=== PATIENT | female | born 1950 | race Two or more races ===

== ENCOUNTER 2024-03-21 09:01 | Inpatient (IN) | payer OTHER, MEDICAID ==
[~2024-03-21] VITALS: Ht 152.4 cm; Wt 81.6 kg
[2024-03-21 09:44] LABS: Basophils # (auto) 0 10 ^3/uL (0-0.2); Basophils % (auto) 0.5 % (0.0-2.0); Eosinophils # (auto) 0.1 10 ^3/uL (0-0.8); Eosinophils % (auto) 1.6 % (0.0-7.0); Hematocrit 40.1 % (36.0-46.0); Hemoglobin 13.1 g/dL (12.2-16.2); Lymphocytes # (auto) 2.2 10 ^3/uL (0.4-5.4); Lymphocytes % (auto) 31.6 % (10.0-50.0); Mean Corpuscular Hemoglobin 29.2 pg (28.0-32.0); Mean Corpuscular Hgb Conc. 32.7 g/dL (32.0-36.0); Mean Corpuscular Volume 89.3 fL (80.0-100.0); Monocytes # (auto) 0.5 10 ^3/uL (0-1.3); Monocytes % (auto) 6.8 % (0.0-12.0); Neutrophils # (auto) 4.2 10 ^3/uL (1.6-8.6); Neutrophils % (auto) 59.5 % (37.0-80.0); Nucleated Red Blood Cells % 0.1 %; Red Blood Cells 4.49 10^6/uL (4.0-5.20); Red Cell Distribution Width 14.3 % (11.8-14.3)
[2024-03-21 10:06] LABS: Alanine Aminotransferase 16 U/L (7-40); Albumin 4.3 g/dL (3.2-4.8); Alkaline Phosphatase 103 U/L (46-116); Anion Gap 7 (5-15); Aspartate Aminotransferase 13 U/L (13-40); BUN/Creatinine Ratio 12.7 (10.0-20.0); Blood Urea Nitrogen 10 mg/dL (9-23); Calcium 9.3 mg/dL (8.5-10.1); Carbon Dioxide 23 mmol/L (20-30); Chloride 114 mmol/L (98-107); Glucose 128 mg/dL (74-106); Potassium 3.7 mmol/L (3.5-5.1); Sodium 144 mmol/L (136-145)
[2024-03-21 10:07] LABS: Bilirubin, Total 0.7 mg/dL (0.2-1.0); Total Protein 6.7 g/dL (5.7-8.2)
[2024-03-21 10:46] VITALS: RESP 16; O2SAT 97
[2024-03-21] MEDS ORDERED: MORPHINE SULFATE INJ 2 MG/ml SYRG IV PRN (15:30)
[2024-03-21] MEDS ORDERED: NITROGLYCERIN 0.4 MG SL TAB SL PRN (15:30)
[2024-03-21 15:58] LABS: Triglycerides 142 mg/dL (< 150)
[2024-03-21 15:59] LABS: LDL Cholesterol 105 mg/dL (< 100)
[2024-03-21 16:00] LABS: Cholesterol 175 mg/dL (< 200); HDL Cholesterol 48 mg/dL (40-59)
[2024-03-21] MEDS: SODIUM CHLORIDE 0.9% 1,000 ML IV SCH (16:49)
[2024-03-21 19:30] VITALS: PULSE 63
[2024-03-21] MEDS ORDERED: LORazepam 2MG/ML-1ML VIAL IV PRN (20:15)
[2024-03-21 21:29] VITALS: BP 132/75; PULSE 61; RESP 18; TEMP 98.4; O2SAT 97
[2024-03-21] MEDS: ATORVASTATIN 20 MG TAB PO SCH (21:56)
[2024-03-21 22:10] VITALS: BP 132/75; PULSE 61; RESP 18; TEMP 98.4; O2SAT 97
[2024-03-22] VITALS (9 sets, daily range): BP systolic 117–180; BP diastolic 71–84; PULSE 52–100; RESP 18; TEMP 98–99; O2SAT 95–98
[2024-03-22] MEDS ORDERED: MET50T PO (00:08)
[2024-03-22] MEDS ORDERED: GABA-339 PO (00:08)
[2024-03-22] MEDS ORDERED: HYDR25TA88 PO (00:08)
[2024-03-22] MEDS ORDERED: DIPH-753 PO (00:08)
[2024-03-22] MEDS ORDERED: IBUP-1456 PO (00:08)
[2024-03-22 05:02] LABS: Basophils # (auto) 0 10 ^3/uL (0-0.2); Basophils % (auto) 0.4 % (0.0-2.0); Eosinophils # (auto) 0.1 10 ^3/uL (0-0.8); Hematocrit 34.9 % (36.0-46.0); Hemoglobin 11.9 g/dL (12.2-16.2); Lymphocytes # (auto) 2.5 10 ^3/uL (0.4-5.4); Lymphocytes % (auto) 37.9 % (10.0-50.0); Mean Corpuscular Volume 88.4 fL (80.0-100.0); Monocytes # (auto) 0.5 10 ^3/uL (0-1.3); Monocytes % (auto) 7.1 % (0.0-12.0); Neutrophils # (auto) 3.5 10 ^3/uL (1.6-8.6); Neutrophils % (auto) 52.6 % (37.0-80.0); Nucleated Red Blood Cells % 0.1 %; Red Blood Cells 3.95 10^6/uL (4.0-5.20); Red Cell Distribution Width 14.1 % (11.8-14.3); White Blood Cell 6.6 10^3/uL (4.4-10.8)
[2024-03-22 05:32] LABS: Alanine Aminotransferase 14 U/L (7-40); Alkaline Phosphatase 89 U/L (46-116); Anion Gap 7 (5-15); BUN/Creatinine Ratio 29.5 (10.0-20.0); Blood Urea Nitrogen 18 mg/dL (9-23); Calcium 8.6 mg/dL (8.7-10.4); Carbon Dioxide 22 mmol/L (20-30); Chloride 114 mmol/L (98-107); Glucose 96 mg/dL (74-106); Potassium 3.6 mmol/L (3.5-5.1); Sodium 143 mmol/L (136-145)
[2024-03-22 05:33] LABS: Albumin 3.7 g/dL (3.2-4.8); Aspartate Aminotransferase 10 U/L (13-40); Bilirubin, Total 0.6 mg/dL (0.2-1.0); Total Protein 5.8 g/dL (5.7-8.2)
[2024-03-22] MEDS: METOPROLOL TARTRATE 50 MG TAB PO SCH (10:30)
[2024-03-22] MEDS: ASPirin 81 mg TAB PO SCH (10:51)
[2024-03-22] MEDS: hydrALAZINE HCL 25 MG TAB PO SCH (10:52)
[2024-03-22] MEDS: ENOXAPARIN SOD 40 MG/0.4 ML SYRINGE SC SCH (10:54)
[2024-03-22] MEDS: ACETAMINOPHEN 325 MG TAB PO PRN (13:28)
[2024-03-22] MEDS: cloNIDine HCL 0.1 MG TAB PO ONE (13:30)
[2024-03-22] MEDS: ZOLPIDEM TARTRATE 5 MG TAB PO PRN (21:27)
[2024-03-23] VITALS (9 sets, daily range): BP systolic 117–151; BP diastolic 58–81; PULSE 54–83; RESP 17–20; TEMP 98–98.5; O2SAT 95–98
[2024-03-24 01:00] VITALS: BP 145/78; PULSE 62; RESP 16; TEMP 98.2; O2SAT 97
[2024-03-24 05:00] VITALS: BP 153/79; PULSE 60; RESP 20; TEMP 98; O2SAT 95
[2024-03-24 08:00] VITALS: PULSE 62
[2024-03-24 08:25] VITALS: BP 142/86; PULSE 60; RESP 18; TEMP 98.6; O2SAT 96
[2024-03-24] MEDS ORDERED: ATOR20TA PO (12:00)
[2024-03-24] MEDS ORDERED: ZOLP10TA PO (12:00)
[2024-03-24] MEDS ORDERED: ALPR1TAB2 PO (12:00)
[2024-03-24] MEDS ORDERED: ASPI-628 PO (12:00)
[2024-03-24] MEDS ORDERED: METO-158 PO (12:00)
[2024-03-24 13:00] VITALS: BP 138/70; PULSE 60; RESP 18; TEMP 97.7; O2SAT 95
[2024-03-24 17:00] VITALS: BP 134/92; PULSE 61; RESP 18; TEMP 98; O2SAT 96
== END 2024-03-24 21:12 | disposition home health service (06) | DRG 65 ==
LOC: ER 09:01 → TELE-WESTW 15:26 → TELE 15:26 → TELE-WESTW 21:30 → UNDODISIN 03-24 19:00
PROVIDERS: ADMIT Nurse Practitioner Family; ATTEND Family Medicine
DX: I63.9 Cerebral infarction, unspecified (principal); G81.94 Hemiplegia, unspecified affecting left nondominant side; I16.1 Hypertensive emergency; R29.810 Facial weakness; E66.01 Morbid (severe) obesity due to excess calories; E78.00 Pure hypercholesterolemia, unspecified; R73.03 Prediabetes; Z79.82 Long term (current) use of aspirin; Z88.6 Allergy status to analgesic agent; Z68.35 Body mass index [BMI] 35.0-35.9, adult; Z83.3 Family history of diabetes mellitus; Z79.899 Other long term (current) drug therapy
CPT/HCPCS: 36415; 70450; 70551; 80053; 80061; 84443; 85025; 93005; 93306; 93886; 97110; 97116; 97163; 97530; G0378

== ENCOUNTER 2024-04-29 17:30 | Emergency (ER) | payer OTHER, MEDICAID ==
[~2024-04-29] VITALS: Ht 154.9 cm; Wt 80.0 kg
[~2024-04-29 17:30] MED LIST: ALPR1TAB2 PO; ASPI-628 PO; ATOR20TA PO; DIPH-753 PO; GABA-339 PO; HYDR25TA88 PO; IBUP-1456 PO; MET50T PO; METO-158 PO; ZOLP10TA PO
[2024-04-29 19:27] LABS: Basophils # (auto) 0.1 10 ^3/uL (0-0.2); Basophils % (auto) 0.5 % (0.0-2.0); Eosinophils # (auto) 0 10 ^3/uL (0-0.8); Eosinophils % (auto) 0.4 % (0.0-7.0); Hemoglobin 12.8 g/dL (12.2-16.2); Lymphocytes # (auto) 2.5 10 ^3/uL (0.4-5.4); Lymphocytes % (auto) 25.8 % (10.0-50.0); Mean Corpuscular Hemoglobin 29.2 pg (28.0-32.0); Mean Corpuscular Hgb Conc. 32.7 g/dL (32.0-36.0); Mean Corpuscular Volume 89.4 fL (80.0-100.0); Monocytes # (auto) 0.8 10 ^3/uL (0-1.3); Monocytes % (auto) 8.6 % (0.0-12.0); Neutrophils # (auto) 6.3 10 ^3/uL (1.6-8.6); Neutrophils % (auto) 64.7 % (37.0-80.0); Platelet Count (auto) 176 10^3/uL (140-450); Red Blood Cells 4.36 10^6/uL (4.0-5.20); Red Cell Distribution Width 14.1 % (11.8-14.3); White Blood Cell 9.7 10^3/uL (4.4-10.8)
[2024-04-29 19:47] LABS: Alanine Aminotransferase 14 U/L (7-40); Alkaline Phosphatase 87 U/L (46-116); Anion Gap 6 (5-15); Aspartate Aminotransferase 14 U/L (13-40); BUN/Creatinine Ratio 15.3 (10.0-20.0); Bilirubin, Total 1.3 mg/dL (0.2-1.0); Blood Urea Nitrogen 9 mg/dL (9-23); Calcium 9.2 mg/dL (8.7-10.4); Carbon Dioxide 22 mmol/L (20-30); Chloride 106 mmol/L (98-107); Glucose 108 mg/dL (74-106); Partial Thromboplastin Time 25.4 SEC (24.5-34.5); Prothrombin Time 10.6 sec (9.3-11.8); Sodium 134 mmol/L (136-145); Total Protein 6.9 g/dL (5.7-8.2)
[2024-04-29 22:00] VITALS: PULSE 60; RESP 20; O2SAT 97
[2024-04-29] MEDS: PANTOPRAZOLE 40 MG TAB PO ONE (22:24)
[2024-04-29] MEDS: ACETAMINOPHEN 500 MG TAB PO ONE (22:24)
[2024-04-29 22:39] VITALS: BP 150/68; PULSE 60; RESP 16; TEMP 98; O2SAT 97
== END 2024-04-29 22:39 | disposition home or self-care (01) ==
LOC: ER 17:30
DX: R53.1 Weakness (principal); R42 Dizziness and giddiness; I10 Essential (primary) hypertension; T46.6X5A Adverse effect of antihyperlipidemic and antiarteriosclerotic drugs, initial encounter; Z86.73 Personal history of transient ischemic attack (TIA), and cerebral infarction without residual deficits; Y92.89 Other specified places as the place of occurrence of the external cause
CPT/HCPCS: 36415; 70450; 71045; 80053; 82962; 83880; 84484; 85025; 85610; 85730; 93005

== ENCOUNTER 2024-05-23 00:06 | Inpatient (IN) | payer OTHER, MEDICAID ==
[~2024-05-23] VITALS: Ht 152.4 cm; Wt 80.7 kg
[2024-05-23 01:00] VITALS: PULSE 54; RESP 16; O2SAT 96
[2024-05-23 01:08] LABS: Basophils # (auto) 0.1 10 ^3/uL (0-0.2); Basophils % (auto) 0.6 % (0.0-2.0); Eosinophils # (auto) 0.1 10 ^3/uL (0-0.8); Eosinophils % (auto) 0.7 % (0.0-7.0); Hematocrit 37.5 % (36.0-46.0); Hemoglobin 12.6 g/dL (12.2-16.2); Lymphocytes # (auto) 2.2 10 ^3/uL (0.4-5.4); Lymphocytes % (auto) 23.2 % (10.0-50.0); Mean Corpuscular Hemoglobin 30.3 pg (28.0-32.0); Mean Corpuscular Hgb Conc. 33.8 g/dL (32.0-36.0); Mean Corpuscular Volume 89.7 fL (80.0-100.0); Monocytes # (auto) 0.7 10 ^3/uL (0-1.3); Monocytes % (auto) 7.8 % (0.0-12.0); Neutrophils # (auto) 6.5 10 ^3/uL (1.6-8.6); Neutrophils % (auto) 67.7 % (37.0-80.0); Platelet Count (auto) 189 10^3/uL (140-450); Red Blood Cells 4.18 10^6/uL (4.0-5.20); Red Cell Distribution Width 13.8 % (11.8-14.3); White Blood Cell 9.6 10^3/uL (4.4-10.8)
[2024-05-23 01:52] LABS: Urine Bacteria None Seen /hpf (None Seen)
[2024-05-23 02:24] LABS: Urine Blood Negative /uL (Negative); Urine Clarity Clear (Clear); Urine Color Colorless (Yellow); Urine Protein, UAD Negative (Negative); Urine Specific Gravity 1.003 (1.001-1.035); Urine Urobilinogen Normal (Negative); Urine WBC <1 /hpf (0 - 5)
[2024-05-23 02:59] LABS: Alanine Aminotransferase 15 U/L (7-40); Albumin 4.1 g/dL (3.2-4.8); Alkaline Phosphatase 97 U/L (46-116); Anion Gap 8 (5-15); Aspartate Aminotransferase 12 U/L (13-40); BUN/Creatinine Ratio 13.5 (10.0-20.0); Bilirubin, Total 0.7 mg/dL (0.2-1.0); Blood Urea Nitrogen 7 mg/dL (9-23); Calcium 8.9 mg/dL (8.7-10.4); Carbon Dioxide 20 mmol/L (20-30); Chloride 101 mmol/L (98-107); Glucose 106 mg/dL (74-106); Potassium 3.6 mmol/L (3.5-5.1); Sodium 129 mmol/L (136-145); Total Protein 6.2 g/dL (5.7-8.2)
[2024-05-23] MEDS: ONDANSETRON HCL 4 MG/2 ML VIAL IV ONE (03:16)
[2024-05-23] MEDS: MORPHINE SULFATE 4 MG/ML SYR/VIAL IV ONE (03:16)
[2024-05-23 07:45] VITALS: PULSE 56; RESP 12; O2SAT 96
[2024-05-23] MEDS ORDERED: DOCUSATE SOD 100 MG CAP PO PRN (10:30)
[2024-05-23] MEDS ORDERED: NITROGLYCERIN 0.4 MG SL TAB SL PRN (10:30)
[2024-05-23] MEDS ORDERED: ONDANSETRON HCL 4 MG/2 ML VIAL IV PRN (10:30)
[2024-05-23] MEDS: SODIUM CHLORIDE 0.9% 1,000 ML IV SCH (10:54)
[2024-05-23] MEDS ORDERED: GABAPENTIN 300 MG CAP PO ONE (11:30)
[2024-05-23] MEDS: GABAPENTIN 300 MG CAP PO SCH (12:19)
[2024-05-23] MEDS: LORazepam 2MG/ML-1ML VIAL IV SCH (12:19)
[2024-05-23 14:30] VITALS: BP 96/40; PULSE 68; RESP 18; TEMP 98.1; O2SAT 99
[2024-05-23 14:33] VITALS: BP 96/40; PULSE 68; RESP 18; TEMP 98.1; O2SAT 98
[2024-05-23 17:00] VITALS: BP 153/64; PULSE 68; RESP 18; TEMP 98.1; O2SAT 95
[2024-05-23 21:00] VITALS: BP 130/64; PULSE 58; RESP 18; TEMP 97.9; O2SAT 96
[2024-05-23] MEDS: METOPROLOL TARTRATE 50 MG TAB PO SCH (21:37)
[2024-05-23] MEDS: MORPHINE SULFATE INJ 2 MG/ml SYRG IV PRN (21:38)
[2024-05-24] VITALS (7 sets, daily range): BP systolic 104–138; BP diastolic 37–69; PULSE 53–87; RESP 14–18; TEMP 97.6–99.8; O2SAT 94–99
[2024-05-24 06:18] LABS: Basophils # (auto) 0 10 ^3/uL (0-0.2); Basophils % (auto) 0.5 % (0.0-2.0); Eosinophils # (auto) 0 10 ^3/uL (0-0.8); Eosinophils % (auto) 0.4 % (0.0-7.0); Hematocrit 36.5 % (36.0-46.0); Hemoglobin 12.4 g/dL (12.2-16.2); Lymphocytes # (auto) 1.6 10 ^3/uL (0.4-5.4); Lymphocytes % (auto) 25.2 % (10.0-50.0); Mean Corpuscular Hemoglobin 29.9 pg (28.0-32.0); Mean Corpuscular Hgb Conc. 33.9 g/dL (32.0-36.0); Mean Corpuscular Volume 88.2 fL (80.0-100.0); Monocytes # (auto) 0.6 10 ^3/uL (0-1.3); Monocytes % (auto) 9.9 % (0.0-12.0); Neutrophils # (auto) 4.1 10 ^3/uL (1.6-8.6); Nucleated Red Blood Cells % 0.1 %; Platelet Count (auto) 191 10^3/uL (140-450); Red Blood Cells 4.14 10^6/uL (4.0-5.20); Red Cell Distribution Width 13.8 % (11.8-14.3); White Blood Cell 6.4 10^3/uL (4.4-10.8)
[2024-05-24 06:36] LABS: Alanine Aminotransferase 13 U/L (7-40); Albumin 3.9 g/dL (3.2-4.8); Alkaline Phosphatase 83 U/L (46-116); Anion Gap 6 (5-15); Aspartate Aminotransferase 11 U/L (13-40); Calcium 9.3 mg/dL (8.7-10.4); Carbon Dioxide 22 mmol/L (20-30); Chloride 110 mmol/L (98-107); Glucose 94 mg/dL (74-106); Potassium 3.8 mmol/L (3.5-5.1); Sodium 138 mmol/L (136-145)
[2024-05-24 06:37] LABS: Bilirubin, Total 0.8 mg/dL (0.2-1.0); Total Protein 6.1 g/dL (5.7-8.2)
[2024-05-24 06:42] LABS: BUN/Creatinine Ratio 9.8 (10.0-20.0); Blood Urea Nitrogen < 5 mg/dL (9-23)
[2024-05-24] MEDS: ENOXAPARIN SOD 40 MG/0.4 ML SYRINGE SC SCH (10:22)
[2024-05-24] MEDS: ACETAMINOPHEN 325 MG TAB PO PRN (10:23)
[2024-05-24] MEDS: ASPirin-EC 81 mg tab PO SCH (10:24)
[2024-05-24] MEDS: ATORVASTATIN 20 MG TAB PO SCH (10:24)
[2024-05-24] MEDS ORDERED: POLYSOL2 EACHEYE (16:37)
[2024-05-24] MEDS: HYDROcodone-ACET 5/325MG TAB PO PRN (21:48)
[2024-05-24] MEDS: LACTATED RINGER'S 1,000 ML IV SCH (22:34)
[2024-05-25] MEDS: LORazepam 2MG/ML-1ML VIAL IV PRN (02:40)
[2024-05-25 05:00] VITALS: BP 137/82; PULSE 59; RESP 17; TEMP 97.5; O2SAT 96
[2024-05-25] MEDS: ARTIFICIAL TEARS 15ml EACHEYE PRN (05:15)
[2024-05-25 07:38] LABS: Alanine Aminotransferase 14 U/L (7-40); Albumin 3.7 g/dL (3.2-4.8); Alkaline Phosphatase 78 U/L (46-116); Anion Gap 10 (5-15); Aspartate Aminotransferase 10 U/L (13-40); BUN/Creatinine Ratio 19.2 (10.0-20.0); Bilirubin, Total 0.5 mg/dL (0.2-1.0); Blood Urea Nitrogen 10 mg/dL (9-23); Carbon Dioxide 19 mmol/L (20-30); Chloride 111 mmol/L (98-107); Glucose 89 mg/dL (74-106); Sodium 140 mmol/L (136-145); Total Protein 5.6 g/dL (5.7-8.2)
[2024-05-25 08:35] VITALS: BP 135/61; PULSE 59; RESP 17; TEMP 98.1; O2SAT 97
[2024-05-25] MEDS ORDERED: ACET-1882 PO (10:44)
[2024-05-25] MEDS ORDERED: ATOR20TA50 PO (10:44)
[2024-05-25 12:52] VITALS: BP 142/64; PULSE 59; RESP 20; TEMP 98.9; O2SAT 93
[2024-05-25] MEDS ORDERED: [UNRECOGNIZED DRUG - CODE] PO (14:53)
[2024-05-25 16:30] VITALS: BP 145/80; PULSE 58; RESP 20; TEMP 98.2; O2SAT 94
[2024-05-25 16:57] VITALS: BP 116/68; PULSE 56; TEMP 37.2
== END 2024-05-25 19:07 | disposition home or self-care (01) | DRG 641 ==
LOC: EDBD 00:06 → ER 00:06 → EDUNIT# 00:06 → OVERFLOW 10:23 → WEST WING 14:14
PROVIDERS: ADMIT Nurse Practitioner Family; ATTEND Nurse Practitioner Family
DX: E87.1 Hypo-osmolality and hyponatremia (principal); I16.1 Hypertensive emergency; I69.354 Hemiplegia and hemiparesis following cerebral infarction affecting left non-dominant side; I10 Essential (primary) hypertension; E78.00 Pure hypercholesterolemia, unspecified; Z79.899 Other long term (current) drug therapy; Z88.8 Allergy status to other drugs, medicaments and biological substances; E78.5 Hyperlipidemia, unspecified
CPT/HCPCS: 36415; 70450; 70551; 71045; 80053; 81001; 84484; 85025; 93005; 96374; 96375; 96376; 97163; G0378; J2405

== ENCOUNTER 2024-05-31 15:52 | Inpatient (IN) | payer OTHER, MEDICAID ==
[~2024-05-31] VITALS: Ht 152.4 cm; Wt 81.1 kg
[~2024-05-31 15:52] MED LIST changes: +ACET-1882 PO; -ALPR1TAB2 PO; -ATOR20TA PO; +ATOR20TA50 PO; -DIPH-753 PO; -IBUP-1456 PO; -METO-158 PO; +POLYSOL2 EACHEYE; +[UNRECOGNIZED DRUG - CODE] PO
[2024-05-31 17:02] LABS: Basophils # (auto) 0 10 ^3/uL (0-0.2); Basophils % (auto) 0.2 % (0.0-2.0); Eosinophils # (auto) 0.1 10 ^3/uL (0-0.8); Eosinophils % (auto) 0.5 % (0.0-7.0); Hemoglobin 13.1 g/dL (12.2-16.2); Lymphocytes # (auto) 1.9 10 ^3/uL (0.4-5.4); Lymphocytes % (auto) 16.3 % (10.0-50.0); Mean Corpuscular Hemoglobin 30.5 pg (28.0-32.0); Mean Corpuscular Hgb Conc. 32.7 g/dL (32.0-36.0); Mean Corpuscular Volume 93.2 fL (80.0-100.0); Monocytes # (auto) 0.9 10 ^3/uL (0-1.3); Monocytes % (auto) 7.9 % (0.0-12.0); Neutrophils # (auto) 8.7 10 ^3/uL (1.6-8.6); Neutrophils % (auto) 75.1 % (37.0-80.0); Nucleated Red Blood Cells % 0.1 %; Platelet Count (auto) 223 10^3/uL (140-450); Red Blood Cells 4.29 10^6/uL (4.0-5.20); Red Cell Distribution Width 14.6 % (11.8-14.3); White Blood Cell 11.5 10^3/uL (4.4-10.8)
[2024-05-31 17:07] LABS: Chloride 100 mmol/L (98-107)
[2024-05-31 17:08] LABS: Anion Gap 6 (5-15); Carbon Dioxide 24 mmol/L (20-30)
[2024-05-31 17:09] LABS: Calcium 9.4 mg/dL (8.7-10.4)
[2024-05-31 17:12] LABS: Sodium 130 mmol/L (136-145)
[2024-05-31 17:13] LABS: Glucose 112 mg/dL (74-106)
[2024-05-31 17:14] LABS: BUN/Creatinine Ratio 27.4 (10.0-20.0); Blood Urea Nitrogen 17 mg/dL (9-23)
[2024-05-31] MEDS: HYDROcodone-ACET 5/325MG TAB PO ONE (20:30)
[2024-06-01] MEDS: HYDROcodone-ACET 5/325MG TAB PO ONE (05:17)
[2024-06-01] MEDS ORDERED: NITROGLYCERIN 0.4 MG SL TAB SL PRN (06:15)
[2024-06-01] MEDS ORDERED: DOCUSATE SOD 100 MG CAP PO PRN (06:15)
[2024-06-01] MEDS ORDERED: MORPHINE SULFATE INJ 2 MG/ml SYRG IV PRN (06:15)
[2024-06-01] MEDS ORDERED: ONDANSETRON HCL 4 MG/2 ML VIAL IV PRN (06:15)
[2024-06-01 07:02] LABS: Basophils # (auto) 0 10 ^3/uL (0-0.2); Basophils % (auto) 0.2 % (0.0-2.0); Eosinophils # (auto) 0 10 ^3/uL (0-0.8); Eosinophils % (auto) 0.1 % (0.0-7.0); Hematocrit 36.7 % (36.0-46.0); Hemoglobin 12.9 g/dL (12.2-16.2); Lymphocytes # (auto) 1.8 10 ^3/uL (0.4-5.4); Lymphocytes % (auto) 15.3 % (10.0-50.0); Mean Corpuscular Hemoglobin 30.9 pg (28.0-32.0); Mean Corpuscular Hgb Conc. 35.1 g/dL (32.0-36.0); Monocytes # (auto) 0.9 10 ^3/uL (0-1.3); Monocytes % (auto) 7.7 % (0.0-12.0); Neutrophils # (auto) 8.8 10 ^3/uL (1.6-8.6); Neutrophils % (auto) 76.7 % (37.0-80.0); Platelet Count (auto) 216 10^3/uL (140-450); Red Blood Cells 4.17 10^6/uL (4.0-5.20); White Blood Cell 11.5 10^3/uL (4.4-10.8)
[2024-06-01 07:22] LABS: Alanine Aminotransferase 21 U/L (7-40); Albumin 4.6 g/dL (3.2-4.8); Alkaline Phosphatase 88 U/L (46-116); Anion Gap 8 (5-15); Aspartate Aminotransferase 15 U/L (13-40); BUN/Creatinine Ratio 17.5 (10.0-20.0); Bilirubin, Total 0.9 mg/dL (0.2-1.0); Blood Urea Nitrogen 10 mg/dL (9-23); Calcium 9.5 mg/dL (8.7-10.4); Carbon Dioxide 23 mmol/L (20-30); Chloride 99 mmol/L (98-107); Glucose 121 mg/dL (74-106); Potassium 3.6 mmol/L (3.5-5.1); Sodium 130 mmol/L (136-145)
[2024-06-01 08:00] VITALS: PULSE 85; RESP 19; O2SAT 96
[2024-06-01] MEDS ORDERED: ATORVASTATIN 20 MG TAB PO SCH (10:00)
[2024-06-01] MEDS ORDERED: ASPirin 81 mg TAB PO SCH (10:00)
[2024-06-01] MEDS: SODIUM CHLORIDE 0.9% 1,000 ML IV SCH (10:02)
[2024-06-01] MEDS: HYDROcodone-ACET 5/325MG TAB PO PRN (10:03)
[2024-06-01] MEDS: cefTRIAXone 1GM/50ML D5W 50 ML IV ONE (10:03)
[2024-06-01] MEDS: ASPirin-EC 81 mg tab PO SCH (10:03)
[2024-06-01] MEDS: hydrALAZINE HCL 25 MG TAB PO SCH (10:04)
[2024-06-01] MEDS: METOPROLOL TARTRATE 50 MG TAB PO SCH (10:04)
[2024-06-01] MEDS: hydrALAZINE HCL 20 MG/ML VL IV PRN (11:05)
[2024-06-01] MEDS ORDERED: SODIUM CHLOR 0.9% PF (SALINE LOCK) 10ML VIAL/SYR IV SCH (14:00)
[2024-06-01] MEDS: ALPRAZolam 0.25 MG TAB PO ONE (16:24)
[2024-06-01 17:34] VITALS: BP 137/52; PULSE 69; RESP 18; RESP 20; TEMP 98.1; O2SAT 97
[2024-06-01 17:48] LABS: Urine Bacteria None Seen /hpf (None Seen)
[2024-06-01 18:00] LABS: Urine Blood Negative /uL (Negative); Urine Clarity Clear (Clear); Urine Color Colorless (Yellow); Urine Protein, UAD Negative (Negative); Urine Specific Gravity 1.006 (1.001-1.035); Urine Urobilinogen Normal (Negative); Urine WBC 6 /hpf (0 - 5)
[2024-06-01 18:54] VITALS: BP 137/52; PULSE 67; RESP 18; TEMP 98.1; O2SAT 97
[2024-06-01 20:00] VITALS: PULSE 62; RESP 20; O2SAT 97
[2024-06-01] MEDS: ACETAMINOPHEN 325 MG TAB PO PRN (20:17)
[2024-06-01 21:00] VITALS: BP 125/54; PULSE 62; RESP 20; TEMP 98.5; O2SAT 9
[2024-06-01] MEDS: ATORVASTATIN 20 MG TAB PO SCH (21:23)
[2024-06-02] VITALS (8 sets, daily range): BP systolic 114–146; BP diastolic 59–72; PULSE 53–68; RESP 17–19; TEMP 97.6–98.4; O2SAT 94–98
[2024-06-02] MEDS: MELATONIN 5 MG TAB PO ONE (00:53)
[2024-06-02 06:34] LABS: Basophils # (auto) 0 10 ^3/uL (0-0.2); Basophils % (auto) 0.4 % (0.0-2.0); Eosinophils # (auto) 0 10 ^3/uL (0-0.8); Eosinophils % (auto) 0.2 % (0.0-7.0); Hematocrit 34.4 % (36.0-46.0); Lymphocytes # (auto) 1.4 10 ^3/uL (0.4-5.4); Lymphocytes % (auto) 24.8 % (10.0-50.0); Mean Corpuscular Hemoglobin 31.1 pg (28.0-32.0); Monocytes # (auto) 0.5 10 ^3/uL (0-1.3); Neutrophils # (auto) 3.9 10 ^3/uL (1.6-8.6); Neutrophils % (auto) 66.6 % (37.0-80.0); Platelet Count (auto) 182 10^3/uL (140-450); Red Blood Cells 3.86 10^6/uL (4.0-5.20); White Blood Cell 5.9 10^3/uL (4.4-10.8)
[2024-06-02 06:46] LABS: Alanine Aminotransferase 17 U/L (7-40); Albumin 3.8 g/dL (3.2-4.8); Alkaline Phosphatase 71 U/L (46-116); Anion Gap 9 (5-15); Aspartate Aminotransferase 12 U/L (13-40); BUN/Creatinine Ratio 11.8 (10.0-20.0); Bilirubin, Total 0.8 mg/dL (0.2-1.0); Blood Urea Nitrogen 6 mg/dL (9-23); Calcium 9.2 mg/dL (8.7-10.4); Carbon Dioxide 21 mmol/L (20-30); Chloride 108 mmol/L (98-107); Glucose 107 mg/dL (74-106); Magnesium 2.2 mg/dL (1.6-2.6); Potassium 3.8 mmol/L (3.5-5.1); Sodium 138 mmol/L (136-145); Total Protein 5.8 g/dL (5.7-8.2)
[2024-06-02] MEDS: cefTRIAXone 1GM/50ML D5W 50 ML IV SCH (09:39)
[2024-06-02] MEDS ORDERED: LORazepam 2MG/ML-1ML VIAL IV PRN (10:45)
[2024-06-02 12:32] LABS: Hepatitis B Surface Antigen Negative (Negative)
[2024-06-02 12:53] LABS: Hepatitis C Antibody Negative (Negative)
[2024-06-02 13:14] LABS: Free T4 (Free Thyroxine) 1.76 ng/dL (0.89-1.76)
[2024-06-02] MEDS: POTASSIUM CHL 20 Meq TABLET PO ONE (13:45)
[2024-06-02] MEDS: TEMAZEPAM 15 MG CAP PO ONE (23:15)
[2024-06-03] VITALS (7 sets, daily range): BP systolic 120–143; BP diastolic 55–79; PULSE 56–94; RESP 16–18; TEMP 97.2–98.2; O2SAT 93–97
[2024-06-03] MEDS: PANTOPRAZOLE 40 MG TAB PO SCH (05:41)
[2024-06-03 07:48] LABS: Basophils # (auto) 0 10 ^3/uL (0-0.2); Basophils % (auto) 0.3 % (0.0-2.0); Eosinophils # (auto) 0 10 ^3/uL (0-0.8); Eosinophils % (auto) 0.7 % (0.0-7.0); Hematocrit 35.6 % (36.0-46.0); Hemoglobin 12.2 g/dL (12.2-16.2); Lymphocytes % (auto) 27.5 % (10.0-50.0); Mean Corpuscular Hemoglobin 30.7 pg (28.0-32.0); Mean Corpuscular Hgb Conc. 34.1 g/dL (32.0-36.0); Mean Corpuscular Volume 90.1 fL (80.0-100.0); Monocytes # (auto) 0.7 10 ^3/uL (0-1.3); Monocytes % (auto) 9.2 % (0.0-12.0); Neutrophils # (auto) 4.5 10 ^3/uL (1.6-8.6); Neutrophils % (auto) 62.3 % (37.0-80.0); Nucleated Red Blood Cells % 0.1 %; Platelet Count (auto) 199 10^3/uL (140-450); Red Blood Cells 3.96 10^6/uL (4.0-5.20); Red Cell Distribution Width 14.5 % (11.8-14.3); White Blood Cell 7.2 10^3/uL (4.4-10.8)
[2024-06-03 08:28] LABS: Alanine Aminotransferase 18 U/L (7-40); Alkaline Phosphatase 71 U/L (46-116); Anion Gap 11 (5-15); Aspartate Aminotransferase 14 U/L (13-40); BUN/Creatinine Ratio 11.8 (10.0-20.0); Blood Urea Nitrogen 6 mg/dL (9-23); Calcium 9.3 mg/dL (8.7-10.4); Carbon Dioxide 18 mmol/L (20-30); Chloride 109 mmol/L (98-107); Glucose 104 mg/dL (74-106); Potassium 4.1 mmol/L (3.5-5.1); Sodium 138 mmol/L (136-145)
[2024-06-03 08:29] LABS: Bilirubin, Total 0.7 mg/dL (0.2-1.0); Total Protein 6.1 g/dL (5.7-8.2)
[2024-06-03 10:45] LABS: Magnesium 2.2 mg/dL (1.6-2.6)
[2024-06-03 10:46] LABS: Phosphorus 3.5 mg/dL (2.4-5.1)
[2024-06-03 22:24] LABS: Basophils # (auto) 0.1 10 ^3/uL (0-0.2); Basophils % (auto) 0.5 % (0.0-2.0); Eosinophils # (auto) 0 10 ^3/uL (0-0.8); Eosinophils % (auto) 0.3 % (0.0-7.0); Hematocrit 39.3 % (36.0-46.0); Hemoglobin 13.1 g/dL (12.2-16.2); Lymphocytes # (auto) 2.4 10 ^3/uL (0.4-5.4); Mean Corpuscular Hemoglobin 30.1 pg (28.0-32.0); Mean Corpuscular Hgb Conc. 33.3 g/dL (32.0-36.0); Mean Corpuscular Volume 90.4 fL (80.0-100.0); Monocytes # (auto) 0.8 10 ^3/uL (0-1.3); Monocytes % (auto) 7.7 % (0.0-12.0); Neutrophils # (auto) 7.6 10 ^3/uL (1.6-8.6); Neutrophils % (auto) 69.5 % (37.0-80.0); Nucleated Red Blood Cells % 0.1 %; Platelet Count (auto) 210 10^3/uL (140-450); Red Blood Cells 4.34 10^6/uL (4.0-5.20); Red Cell Distribution Width 14.3 % (11.8-14.3); White Blood Cell 10.9 10^3/uL (4.4-10.8)
[2024-06-03] MEDS: TEMAZEPAM 15 MG CAP PO ONE (22:44)
[2024-06-04] VITALS (9 sets, daily range): BP systolic 110–158; BP diastolic 58–73; PULSE 55–76; RESP 15–20; TEMP 97.2–98.4; O2SAT 94–100
[2024-06-04] MEDS ORDERED: SODIUM CHLORIDE LOCK 10 ML ONE (11:47)
[2024-06-04] MEDS ORDERED: LIDOCAINE VISCOUS 2% 15ML UD ONE (11:47)
[2024-06-04] MEDS ORDERED: NALOXONE HCL 0.4 MG/ML VIAL ONE (11:47)
[2024-06-04] MEDS ORDERED: FLUMAZENIL 0.1 MG/ML INJ 10ML MDV IV ONE (11:47)
[2024-06-04] MEDS ORDERED: fentaNYL CITRATE 100 MCG/2 ML VL ONE (11:48)
[2024-06-04] MEDS ORDERED: MIDAZOLAM HCL 5 MG/ML-1ML VIAL ONE (11:48)
[2024-06-04] MEDS ORDERED: diphenhdrAMINE HCL 50 MG/1 ML VL ONE (11:49)
[2024-06-05 05:00] VITALS: BP 147/71; PULSE 55; RESP 18; TEMP 98.6; O2SAT 95
[2024-06-05 08:00] VITALS: PULSE 18; RESP 18; O2SAT 96
[2024-06-05 08:58] LABS: Hepatitis B Surface Antigen Negative (Negative)
[2024-06-05 09:00] VITALS: BP 148/54; PULSE 68; RESP 18; TEMP 99.2; O2SAT 96
[2024-06-05 09:19] LABS: Hepatitis A Ab IgM Negative
[2024-06-05 09:20] LABS: Hepatitis B Core IgM Negative; Hepatitis C Antibody Negative (Negative)
[2024-06-05] MEDS ORDERED: ATOR20TA PO (10:20)
[2024-06-05] MEDS ORDERED: PANT40T PO (10:20)
[2024-06-05] MEDS ORDERED: HYDR-4902 PO (10:20)
[2024-06-05 11:39] VITALS: BP 140/73; PULSE 60; RESP 18; TEMP 99.5; O2SAT 98
[2024-06-05 13:33] VITALS: BP 140/73; PULSE 60; RESP 18; TEMP 99.5; O2SAT 98
== END 2024-06-05 15:00 | disposition home or self-care (01) | DRG 392 ==
LOC: ER 15:52 → OVERFLOW 06-01 06:11 → WEST WING 06-01 17:11
PROVIDERS: ADMIT Nurse Practitioner Family; ATTEND Family Medicine
PROC: 0DB68ZX Excision of Stomach, Via Natural or Artificial Opening Endoscopic, Diagnostic (ICD-10-PCS; 2024-06-04)
PROC: 0DB98ZX Excision of Duodenum, Via Natural or Artificial Opening Endoscopic, Diagnostic (ICD-10-PCS; principal; 2024-06-04 12:47)
DX: K29.70 Gastritis, unspecified, without bleeding (principal); E87.1 Hypo-osmolality and hyponatremia; H05.232 Hemorrhage of left orbit; E11.319 Type 2 diabetes mellitus with unspecified diabetic retinopathy without macular edema; H47.20 Unspecified optic atrophy; K25.9 Gastric ulcer, unspecified as acute or chronic, without hemorrhage or perforation; I10 Essential (primary) hypertension; D72.829 Elevated white blood cell count, unspecified; E11.42 Type 2 diabetes mellitus with diabetic polyneuropathy; E78.5 Hyperlipidemia, unspecified; K76.89 Other specified diseases of liver; Z79.4 Long term (current) use of insulin; Z79.899 Other long term (current) drug therapy; Z79.82 Long term (current) use of aspirin; Z86.73 Personal history of transient ischemic attack (TIA), and cerebral infarction without residual deficits; Z82.49 Family history of ischemic heart disease and other diseases of the circulatory system; Z83.3 Family history of diabetes mellitus; Z87.11 Personal history of peptic ulcer disease
CPT/HCPCS: 36415; 43239; 70450; 70551; 71045; 76700; 80048; 80053; 80061; 80074; 81001; 82306; 82550; 82607; 83036; 83735; 84100; 84439; 84443; 85025; 86803; 86850; 86900; 86901; 87340; 96365; 96366; 96375; 99291; G0378; J2250

== ENCOUNTER 2024-10-30 07:50 | Inpatient (IN) | payer OTHER, MEDICAID ==
[~2024-10-30] VITALS: Ht 152.4 cm; Wt 66.3 kg
[~2024-10-30 07:50] MED LIST changes: +ASPI81CH74 PO; +ATOR20TA PO; +CEPH500C PO; +DICL50TA4 PO; +HYDR-4902 PO; +HYDR-4924 PO; +IBUP-1456 PO; +LEVO25TA6 PO; +METF-370 PO; +METO1TAB77 PO; +PANT40T PO; +PANT40TA2 PO; +PARO1TAB33 PO; +ZOLP10TA6 PO
--- NOTE | 2024-10-30 07:58 | ED.PDOC ---
GI ASSESSMENT HPI Comments 73 y/o F, BIBA with PMHX of HLD, HTN, and CVA presents to the ED for CC of abdominal pain. Per EMS, patient has been experiencing diffuse abdominal pain with associated symptoms of nausea, vomiting, and diarrhea x3days. Patient comments on, additional symptoms of headache and insomnia; which she believes is due to her hypertension. Patient endorses taking x3 Metoprolol; with blood pressure still being high. EMS states, patient additionally complained of irregular heart beat upon arrival to scene, which symptoms have since subsided upon arrival to ED. Patient denies fever, chills, nasal congestion, cough, or body-aches. No other associated symptom's, modifiers, recent injuries, or sick contacts at this time. Chief Complaint: Abdominal Pain Time Seen by MD: 07:57 Primary Care Provider: ALANNA Reviewed Notes: Nurses Notes, Stone [employer] Notes, Medications, Allergies Allergies: Coded Allergies: Dipyridamole (Verified Allergy, Severe, 03/21/24) Propoxyphene (Verified Allergy, Severe, 03/21/24) Iodine (Verified Allergy, Intermediate, 05/23/24) Atorvastatin (Verified Allergy, Unknown, 08/12/24) Uncoded Allergies: CONTRAST (Allergy, Unknown, 10/30/24) Home Meds Active Scripts Hydroxyzine HCl (Hydroxyzine Hydrochloride) 25 Mg Tab, 25 MG PO QHSP PRN for 30 Days, #30 TAB Prov:KAREEM WOLF STUDENT 07/31/24 Pantoprazole Sodium Sesquihydr (Pantoprazole Sodium) 40 Mg Tab, 40 MG PO DAILY, #30 TAB Prov:NADIA CONKLIN MD 06/05/24 Hydrocodone-Acetaminophen (Hydrocodone Bitartrate/AC 5-325 mg) 1 Tab Tab, 1 TAB PO QID PRN, #20 TAB Prov:NADIA CONKLIN MD 06/05/24 Atorvastatin Calcium (Lipitor) 20 Mg Tab, 1 TAB PO DAILY, #30 TAB 1 Refill Prov:NADIA CONKLIN MD 06/05/24 Cobalamine Combinations (B-12 + Folic Acid 2500-400 Mcg) 1 Tab Tab, 1 TAB PO BS for 30 Days, #30 TAB Prov:EREN BOWIE RESIDENT 05/25/24 Atorvastatin Calcium (ATORVASTATIN CALCIUM) 20 Mg Tab, 20 MG PO DAILY for 30 Days, #30 TAB Prov:EREN BOWIE RESIDENT 05/25/24 Acetaminophen (Acetaminophen) 325 Mg Tab, 650 MG PO Q6HP PRN for 10 Days, #80 TAB Prov:EREN BOWIE RESIDENT 05/25/24 Zolpidem Tartrate (Ambien) 10 Mg Tab, 1 TAB PO QPM PRN, #30 TAB 5 Refills Prov:NADIA CONKLIN MD 03/24/24 Aspirin (Aspirin Adult Low Dose) 81 Mg Tab, 81 MG PO DAILY, #180 TAB Prov:NADIA CONKLIN MD 03/24/24 Reported Medications Hydralazine Hcl (Hydralazine Hcl) 25 Mg Tab, 1 TAB PO BID for 90 Days, #180 07/29/24 Atorvastatin Calcium (Lipitor) 20 Mg Tab, 1 TAB PO DAILY for 90 Days, #90 07/29/24 Hydrocodone-Acetaminophen (Hydrocodone Bitartrate/AC 5-325 mg) 1 Tab Tab, 1 TAB PO DAILY PRN for PAIN for 15 Days, #15 07/29/24 Diclofenac Sodium (Diclofenac Sodium Ec) 50 Mg Tab, 1 TAB PO BID for 30 Days, #60 07/29/24 Zolpidem Tartrate (Zolpidem Tartrate) 10 Mg Tab, 1 TAB PO QPM for 30 Days, #30 07/29/24 Levothyroxine Sodium (Levothyroxine Sodium) 25 Mcg Tab, 1 TAB PO DAILY for 90 Days, #90 07/29/24 Metformin Hydrochloride (Metformin Hcl) 500 Mg Tab, 1 TAB PO DAILY for 90 Days, #90 07/29/24 Paroxetine Hydrochloride (Paroxetine Hydrochloride) 20 Mg Tab, 1 TAB PO DAILY for 30 Days, #30 07/29/24 Cephalexin Monohydrate (Cephalexin) 500 Mg Cap, 1 CAP PO QID for 5 Days, #20 07/29/24 Aspirin (Aspirin 81 Low Dose) 81 Mg Chw, 1 TAB PO DAILY for 90 Days, #90 07/29/24 Metoprolol Tartrate (Lopressor) 50 Mg Tab, 1 TAB PO BID for 90 Days, #180 07/29/24 Pantoprazole Sodium Sesquihydr (Protonix) 40 Mg Tab, 1 TAB PO DAILY for 90 Days, #90 07/28/24 Ibuprofen (Ibuprofen) 800 Mg Tab, 1 TAB PO TID for 30 Days, #90 07/28/24 Gabapentin (Gabapentin) 600 Mg Tab, 1 TAB PO TID for 90 Days, #270 07/28/24 Polyethylene Glycol-Propylene (Systane) Doretha, 1 DROP EACHEYE QIDPRN, #30 ML 5 Refills 05/24/24 Gabapentin (Gabapentin) 600 Mg Tab, 600 MG PO for 30 Days, MG 03/22/24 Hydralazine Hcl (Hydralazine Hcl) 25 Mg Tab, 25 MG PO DAILY for 30 Days, MG 03/22/24 Metoprolol Tartrate (LOPRESSOR TABLET) 50 Mg Tb, 1 TAB PO BID, #60 TAB 5 Refills 03/22/24 Information Source: Patient, Emergency Med Personnel Mode of Arrival: EMS Timing: Days Duration: Since onset Prehospital treatment: None Quality: None Vomitus: Watery Stool: Watery Severity: Moderate Recent: None Recent Hx of: None Pain Location: Diffuse Modifying Factors: Nothing Associated sign and symptoms: Nausea, Vomiting, Diarrhea Past Medical History PAST MEDICAL HISTORY: CVA, High Lipids, HTN Surgical History: , Hernia Repair WORM GROWER History: No Pertinent WORM GROWER History Family History Family History: No family hx of Cancer, No family hx of DM, No family hx of Heart cristino Social History Smoker: Non-Smoker Alcohol: Denies ETOH Use Drugs: Denies Drug Use Lives In: Home Constitutional: denies: chills, diaphoresis, fatigue, fever, malaise, sweats, weakness, others EENTM: denies: blurred vision, double vision, ear bleeding, ear discharge, ear drainage, ear pain, ear ringing, eye pain, eye redness, hearing loss, mouth pain, mouth swelling, nasal discharge, nose bleeding, nose congestion, nose pain, photophobia, tearing, throat pain, throat swelling, voice changes, others Respiratory: denies: cough, hemoptysis, orthopnea, SOB at rest, shortness of breath, SOB with excertion, stridor, wheezing, others Gastrointestinal: reports: abdominal pain, diarrhea, nausea, vomiting; denies: abdomen distended, blood streaked bowels, constipated, dysphagia, difficulty swallowing, hematemesis, melena, poor appetite, poor fluid intake, rectal bleeding, rectal pain, others Genitourinary: denies: abnormal vagina bleeding, burning, dyspareunia, dysuria, flank pain, frequency, hematuria, incontinence, pain, , vagina di scharge, urgency, others Neurological: reports: dizziness; denies: fainting, headache, left sided numbness, left sided weakness, numbness, paresthesia, pre-existing deficit, right sided numbness, right sided weakness, seizure, speech problems, tingling, tremors, weakness, others Musculoskeletal: denies: back pain, gout, joint pain, joint swelling, muscle pain, muscle stiffness, neck pain, others Integumetry: denies: bruises, change in color, change in hair/nails, dryness, laceration, lesions, lumps, rash, wounds, others Allergic/Immunocompromised: denies: Difficulty Healing, Frequent Infections, Hives, Itching, others Hematologic/Lymphatic: denies: anemia, blood clots, easy bleeding, easy bruising, swollen glands, others Endocrine: denies: excessive hunger, excessive sweating, excessive thirst, excessive urination, flushing, intolerance to cold, intolerance to heat, unexplained weight gain, unexplained weight loss, others Psychiatric: denies: anxiety, bipolar disorder, depression, hopeless, panic disorder, schizophrenia, sleepless, suicidal, others All Other Systems: Reviewed and Negative Physical Exam General Appearance: Moderate Distress HEENT: Normal ENT Inspection, Pharynx Normal, TMs Normal Neck: Full Range of Motion, Non-Tender, Normal, Normal Inspection Respiratory: Other (Coarse breath sounds) Cardiovascular: Bradycardia, No Edema, No JVD, No Murmur, No Gallop, Normal Peripheral Pulses Breast Exam: Deferred Gastrointestinal: No Organomegaly, Non Tender, No Pulsatile Mass, Normal Bowel Sounds, Soft Genitalia: Deferred Pelvic: Deferred Rectal: Deferred Extremities: Normal inspection, No pedal edema Musculoskeletal : Apperance: Normal Neurologic: Alert, No Motor Deficits, No Sensory Deficits Cerebellar Function: NOT DONE Reflexes: NOT DONE Skin: Normal Color Peripheral Pulses: 3+ Radial (R), 3+ Radial (L) Lymphatic: No Adenopathy Was a procedure done? Was a procedure done?: No GI differential Dx Differential Diagnosis: Constipation, Diverticular disease, Esophagitis, Ga stritis/PUD, Gastroenteritis, Electrolyte Imbalance, Food Poisoning, Bacterial, Viral X-Ray, Labs, Meds, VS Vital Signs Date Time Temp Pulse Resp B/P (MAP) Pulse Ox O2 Delivery O2 Flow Rate FiO2 10/30/24 09:10 56 18 100 Room Air* 0 21 10/30/24 09:08 98.2 56 16 145/95 (112) 100 98.2 10/30/24 08:08 98.2 56 16 145/95 (112) 100 10/30/24 07:55 51 Lab Test 10/30/24 08:10 Range/Units Urine Color Light-yellow Yellow Urine Clarity Clear Clear Urine pH 8.0 5.0-9.0 Urine Specific [place] 1.016 1.001-1.035 Urine Protein Negative Negative Urine Ketones Negative Negative Urine Blood Negative Negative /uL Urine Nitrite Negative Negative Urine Bilirubin Negative Negative Urine Urobilinogen Normal Negative mg/dL Urine Leukocyte Esterase Negative Negative /uL Urine RBC None seen 0 - 4 /hpf Urine Microscopic WBC 1 0-5 /HPF Urine Squamous Epithelial Cells None seen <5 /hpf Urine Amorphous Crystals Few None Seen /hpf Urine Bacteria None seen None Seen /hpf Urine Yeast (Budding) Few None Seen /hpf Urine Glucose Normal Normal mg/dL [place] [id number] Ph: [phone] DIAGNOSTIC IMAGING Diagnostic Imaging Report : [id number] Signed PATIENT: HUONG MORGAN MACCT: [id number] UNIT: [id number] : 1950 LOC: ER ROOM / BED: / AGE / SEX: 73 / F ADM STATUS: REG ER SERVICE 0810 ORDERING PHYSICIAN: MICHELLE KIDD MD PROCEDURE(s): CXRP - CHEST PORTABLE REASON: sob ORDER NUMBER(s): [id number], ACCESSION NUMBER(s): [id number] EXAM: XY CHEST PORTABLE Indication: sob Technique: Single frontal view of the chest was obtained Comparison: XY CHEST PORTABLE on DOS: 06/04/24, XY CHEST PORTABLE on DOS: 05/23/24, XY CHEST PORTABLE on DOS: 04/29/24 FINDINGS: Lines and Tubes: None Lungs: No focal consolidation. Pleura: No effusion. No pneumothorax. Cardiomediastinal contours: Unremarkable Bones: No acute osseous abnormality. IMPRESSION: No acute cardiopulmonary disease. ATED BY: MARILUZ CALZADA MD DICTATED DATE/TIME: 10/30/24917 SIGNED BY: MARILUZ CALZADA MD SIGNED DATE/TIME: 10/30/24917 CC: Patient alert. Complaining of abdominal pain. Bradycardia. Saturation pristine on room air. Blood pressure slightly elevated. EKG reviewed shows bradycardia. Possibly too much metoprolol. Continues to have abdominal pain. Nausea. Establish intravenous access. Was given fluids. Reviewed her previous visit. Explained to the patient. Continue cardiac monitoring. Time of 1ST Reevaluation: 08:27 Reevaluation 1ST: Unchanged Patient Education/Counseling: Diagnosis, Treatment Family Education/Counseling: No Family Present Additional Information I reviewed the following notes from patient's past medical history: 07/28/24 DX: ABDOMINAL PAIN, 06/01/24 DX: INTRACTABLE HEADACHE The following tests were ordered, and results were reviewed by me: EKG, PAID INFLUENZA A&B, COVID19 ANTIGEN ILIA, TROPONIN-I HS, CBC, CXR, UA, BMP Additional Information was gathered from interviewing the following independent historians: EMS I reviewed and agreed with the following test results read by other providers: CXR I discussed treatment and results with medical personnel and: PATIENT Departure 1 Departure Time of Disposition: 08:23 Impression: Primary Impression: Acute abdominal pain Additional Impressions: Hypertension Qualified Codes: I10 - Essential (primary) hypertension Bradycardia Disposition: ADMITTED INPATIENT Admit to: Med Surg Condition: Guarded Critical Care Note Critical Care Time?: No Stability Stability form required: No Heart Score Heart Score: Heart Score Response (Comments) Value History N/A 0 EKG N/A 0 Age N/A 0 Risk Factors N/A 0 Troponin N/A 0 Total 0 I personally scribed for MICHELLE KIDD MD ([email or web address]) on 10/30/24 at 07:58. Electronically submitted by Judy Escalante ([email or web address]). I personally scribed for MICHELLE KIDD MD ([email or web address]) on 10/30/24 at 08:18. Electronically submitted by Judy Escalante ([email or web address]). I personally scribed for MICHELLE KIDD MD ([email or web address]) on 2/20/25 at 08:28. Electronically submitted by Judy Escalante ([email or web address]). I personally scribed for MICHELLE KIDD MD ([email or web address]) on 10/30/24 at 09:24. Electronically submitted by Judy Escalante ([email or web address]). MICHELLE KIDD MD Oct 30, 2024 07:58
[2024-10-30 08:31] LABS: Urine Bacteria None Seen /hpf (None Seen)
[2024-10-30 08:51] LABS: Urine Amorphous Crystal FEW /hpf (None Seen); Urine Blood Negative /uL (Negative); Urine Budding Yeast FEW /hpf (None Seen); Urine Color Light-Yellow (Yellow); Urine Protein, UAD Negative (Negative); Urine Specific Gravity 1.016 (1.001-1.035); Urine Squamous Epithelial Cell None Seen /hpf (<5); Urine Urobilinogen Normal (Negative); Urine WBC 1 /HPF (0-5)
[2024-10-30 08:52] LABS: Urine Clarity Clear (Clear)
[2024-10-30 09:10] VITALS: PULSE 56; RESP 18; O2SAT 100
--- NOTE | 2024-10-30 09:18 | DVH ---
EXAM: XY CHEST PORTABLE Indication: sob Technique: Single frontal view of the chest was obtained Comparison: XY CHEST PORTABLE on DOS: 06/04/24, XY CHEST PORTABLE on DOS: 05/23/24, XY CHEST PORTABLE o n DOS: 04/29/24 FINDINGS: Lines and Tubes: None Lungs: No focal consolidation. Pleura: No effusion. No pneumothorax. Cardiomediastinal contours: Unremarkable Bones: No acute osseous abnormality. IMPRESSION: No acute cardiopulmonary disease.
[2024-10-30] MEDS: SODIUM CHLORIDE 0.9% 1,000 ML IV ONE (10:05)
[2024-10-30] MEDS: SODIUM CHLORIDE 0.9% 500 ML IV ONE (10:05)
[2024-10-30] MEDS: HYDROcodone-ACET 5/325MG TAB PO ONE (10:07)
[2024-10-30 10:17] LABS: Basophils # (auto) 0 10 ^3/uL (0-0.2); Basophils % (auto) 0.3 % (0.0-2.0); Eosinophils # (auto) 0 10 ^3/uL (0-0.8); Eosinophils % (auto) 0.1 % (0.0-7.0); Hematocrit 38.1 % (36.0-46.0); Hemoglobin 12.9 g/dL (12.2-16.2); Lymphocytes # (auto) 1.3 10 ^3/uL (0.4-5.4); Lymphocytes % (auto) 31.6 % (10.0-50.0); Mean Corpuscular Hemoglobin 30.6 pg (28.0-32.0); Mean Corpuscular Hgb Conc. 33.8 g/dL (32.0-36.0); Mean Corpuscular Volume 90.5 fL (80.0-100.0); Monocytes # (auto) 0.4 10 ^3/uL (0-1.3); Monocytes % (auto) 10.1 % (0.0-12.0); Neutrophils # (auto) 2.4 10 ^3/uL (1.6-8.6); Neutrophils % (auto) 57.9 % (37.0-80.0); Nucleated Red Blood Cells % 0.2 %; Platelet Count (auto) 165 10^3/uL (140-450); Red Cell Distribution Width 14.2 % (11.8-14.3); White Blood Cell 4.1 10^3/uL (4.4-10.8)
[2024-10-30 10:26] LABS: Anion Gap 8 (5-15); Carbon Dioxide 27 mmol/L (20-31); Chloride 99 mmol/L (98-107)
[2024-10-30 10:27] LABS: Calcium 9.4 mg/dL (8.7-10.4)
[2024-10-30 10:31] LABS: Glucose 105 mg/dL (74-106)
[2024-10-30 10:32] LABS: BUN/Creatinine Ratio 12.5 (10.0-20.0)
[2024-10-30 10:37] LABS: Blood Urea Nitrogen 7 mg/dL (9-23); Sodium 134 mmol/L (136-145)
[2024-10-30 11:30] LABS: COVID19 ANTIGEN SOFIA FIA NEGATIVE (NEGATIVE)
[2024-10-30 11:30] LABS: Rapid Influenza A Negative (Negative); Rapid Influenza B Negative (Negative)
[2024-10-30] MEDS: LORazepam 2MG/ML-1ML VIAL IV ONE (13:06)
--- NOTE | 2024-10-30 15:16 | ECG ---
[facility] Test Date: 2024-10-30 Test Time: 07:54:08 Pat Name: HUONG MORGAN Department: ED Room: 0295 Gender: F Vp Foundation: THOM : 1950 Requested By: MICHELLE KIDD Order Number: [id number] Reading MD: Tom Alex Measurements Intervals [place] Rate: 52 P: 22 IN: 156 QRS: -32 QRSD: 90 T: 52 QT: 437 QTc: 407 Interpretive Statements Sinus rhythm Left ventricular hypertrophy Lateral infarct, age indeterminate Electronically Signed On 10-30-2024 22:27:00 PST by Tom Alex Please click the below link to view image of tracing.
--- NOTE | 2024-10-30 17:03 | DVHHP2 ---
History of Present Illness Reason for Visit: Abdominal pain History of Present Illness Bekah Caceres is a 73-year-old female with past medical history of hypertension, hyperlipidemia, CVA, EGD, , and hernia repair who presents to the ED for abdominal pain, dizziness, nausea, vomiting, and diarrhea times several months. Patient reports that she had an EGD 5 months ago and has since then had not been able to eat solid foods has only been ingesting ensures and liquids. Patient states that when she consumes food that she has irritation in her stomach and it comes out of her mouth and nose. Patient denies any chest pain, shortness of breath, fever, chills, lightheadedness, weakness, and dizziness. Patient also denies recent injury or trauma and recent sick contacts or recent illnesses. 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 Dyspnea, Edema, Lt Headedness, Other Gastrointestinal: Nausea, Vomiting, Abdominal Pain, Diarrhea; No: Constipation, Melena, Hematochezia, Other Genitourinary: No Dysuria, No Frequency, No Incontinence, No Hematuria, No Retention, No Other Musculoskeletal: No: other, neck pain, shoulder pain, arm pain, back pain, hand pain, leg pain, foot pain Skin: No: Rash, Lesions, Jaundice, Bruising, Other Neurological: No: Weakness, Numbness, Incoordination, Change in speech, Confusion, Seizures, Other Allergies: Coded Allergies: Dipyridamole (Verified Allergy, Severe, 03/21/24) Propoxyphene (Verified Allergy, Severe, 03/21/24) Iodine (Verified Allergy, Intermediate, 05/23/24) Atorvastatin (Verified Allergy, Unknown, 08/12/24) Uncoded Allergies: CONTRAST (Allergy, Unknown, 10/30/24) Exam Vital Signs Vital Signs Date Time Temp Pulse Resp B/P (MAP) Pulse Ox O2 Delivery O2 Flow Rate FiO2 10/30/24 15:26 61 18 166/89 (114) 99 10/30/24 12:48 98.2 98.2 10/30/24 09:10 Room Air* 0 21 General Appearance: Alert, Oriented X3, Cooperative, No acute distress HEENT: Atraumatic, PERRLA, EOMI, Mucous membr. moist/pink Respiratory: Clear to auscultation, Normal air movement Cardiovascular: Normal S1, Normal S2 Abdominal: Soft, No hepatospenomegaly, No masses Extremities: No clubbing, No cyanosis, No edema, Normal pulses, No tenderness/swelling Skin: No rashes, No breakdown, No significant lesion Neuro: Normal gait, Normal speech, Strength at 5/5 X4 ext, Normal tone, Sensation intact Psych/Mental Status: Mental status NL, Mood NL Labs/Xrays Labs Test 10/30/24 09:37 10/30/24 09:35 10/30/24 09:08 10/30/24 08:10 Range/Units Sodium Level 134 L 136-145 mmol/L Potassium Level 4.0 3.5-5.1 mmol/L Chloride Level 99 98-107 mmol/L Carbon Dioxide Level 27 20-31 mmol/L Anion Gap 8 5-15 Blood Urea Nitrogen 7 L 9-23 mg/dL Creatinine 0.56 0.550-1.02 mg/dL Glomerular Filtration Rate Calc 95 >90 mL/min BUN/Creatinine Ratio 12.5 10.0-20.0 Serum Glucose 105 74-106 mg/dL Calcium Level 9.4 8.7-10.4 mg/dL White Blood Count 4.1 L 4.4-10.8 10^3/uL Red Blood Count 4.20 4.0-5.20 10^6/uL Hemoglobin 12.9 12.2-16.2 g/dL Hematocrit 38.1 36.0-46.0 % Mean Corpuscular Volume 90.5 80.0-100.0 fL Mean Corpuscular Hemoglobin 30.6 28.0-32.0 pg Mean Corpuscular Hemoglobin Concent 33.8 32.0-36.0 g/dL Red Cell Distribution Width 14.2 11.8-14.3 % Platelet Count 165 140-450 10^3/uL Mean Platelet Volume 9.7 6.9-10.8 fL Neutrophils (%) (Auto) 57.9 37.0-80.0 % Lymphocytes (%) (Auto) 31.6 10.0-50.0 % Monocytes (%) (Auto) 10.1 0.0-12.0 % Eosinophils (%) (Auto) 0.1 0.0-7.0 % Basophils (%) (Auto) 0.3 0.0-2.0 % Neutrophils # (Auto) 2.4 1.6-8.6 10 ^3/uL Lymphocytes # (Auto) 1.3 0.4-5.4 10 ^3/uL Monocytes # (Auto) 0.4 0-1.3 10 ^3/uL Eosinophils # (Auto) 0 0-0.8 10 ^3/uL Basophils # (Auto) 0 0-0.2 10 ^3/uL Nucleated Red Blood Cells 0.2 % Troponin I High Sensitivity 7 </=34 ng/L Urine Color Light-yellow Yellow Urine Clarity Clear Clear Urine pH 8.0 5.0-9.0 Urine Specific [place] 1.016 1.001-1.035 Urine Protein Negative Negative Urine Ketones Negative Negative Urine Blood Negative Negative /uL Urine Nitrite Negative Negative Urine Bilirubin Negative Negative Urine Urobilinogen Normal Negative mg/dL Urine Leukocyte Esterase Negative Negative /uL Urine RBC None seen 0 - 4 /hpf Urine Microscopic WBC 1 0-5 /HPF Urine Squamous Epithelial Cells None seen <5 /hpf Urine Amorphous Crystals Few None Seen /hpf Urine Bacteria None seen None Seen /hpf Urine Yeast (Budding) Few None Seen /hpf Urine Glucose Normal Normal mg/dL Influenza Type A Antigen Negative Negative Influenza Type B Antigen Negative Negative Test 10/30/24 00:00 Range/Units SARS-CoV-2 Antigen (Rapid) Negative NEGATIVE EXAM: XY CHEST PORTABLE Indication: sob Technique: Single frontal view of the chest was obtained Comparison: XY CHEST PORTABLE on DOS: 06/04/24, XY CHEST PORTABLE on DOS: 05/23/24, XY CHEST PORTABLE on DOS: 04/29/24 FINDINGS: Lines and Tubes: None Lungs: No focal consolidation. Pleura: No effusion. No pneumothorax. Cardiomediastinal contours: Unremarkable Bones: No acute osseous abnormality. IMPRESSION: No acute cardiopulmonary disease. Assessment/Plan Assessment/Plan Assessment/Plan: Intractable abdominal pain possibly due to gastritis or reflux Hyponatremia Labs Ativan given ED NS 1 L given ED Pain management Antiemetics UA Chest x-ray Troponin COVID negative Negative EKG A.m. labs Chronic hypertension Continue home medications Chronic hyperlipidemia Continue home medications History of CVA Monitor FEN/PPX Diet Hep-Lock DVT prophylaxis not indicated patient ambulating PUD prophylaxis Protonix Admit to med surg Home medications reconciled Discussed plan of care with patient and nurse Plan discussed with: Patient My Orders Orders - NEETU TOMLIN Procedure Category Date Status Time Ct Ab Pel Wo Con-No CT 10/30/24 Verified Oral Or Iv 16:36 Pantoprazole PHA 10/31/24 Verified (Protonix) 10:00 Admit ADMIT 10/30/24 Verified 16:36 Allergies JOSE ELIAS 10/30/24 Verified 16:36 Code Status CODE 10/30/24 Verified 16:36 Full Liq Diet DIET 10/30/24 Verified Dinner Ondansetron Hcl PHA 10/30/24 Verified (Zofran) 16:45 Complete Blood Count LAB 10/31/24 Verified 04:00 Comprehensive LAB 10/31/24 Verified Metabolic Panel 04:00 Acetaminophen Tablet PHA 10/30/24 Verified (Tylenol Tablet) 16:45 Date of Service: Oct 30, 2024 Billing Provider: NEETU TOMLIN Common Visit Codes: [id number] INP/OBS CARE (HIGH) NEETU TOMLIN Oct 30, 2024 17:03
--- NOTE | 2024-10-30 17:38 | DVH ---
Procedure: CT CT AB PEL WO CON-NO ORAL OR IV 10/30/2024 04:42 PM Indication: abd pain Comparison Study: None Technique: Axial images were obtained and reformatted in coronal and sagittal planes. All CT scans at this medical facility are performed using dose modulation techniques as appropriate t o a performed exam including the following: Automated exposure control was utilized; adjustment of th e MA and/or KV according to patient size; and use of iterative reconstruction technique. CT Dose: CTDI volume is 10.53 mGy. Dose-length product is 524.94 mGy*cm FINDINGS: Lower Chest: Unremarkable. Hepatobiliary: Unremarkable. Spleen: Unremarkable. Pancreas: Unremarkable. Adrenal Glands: Unremarkable. tract: The kidneys are normal in size bilaterally without hydronephrosis or nephrolithiasis. Large , 9.3 cm simple appearing right renal cyst, Bosniak category 1 The urinary bladder is unremarkable. GI tract: The stomach is grossly normal in appearance. No evidence of small bowel obstruction. Descen ding and sigmoid colon diverticulosis. Mild fat stranding is seen adjacent to proximal sigmoid colon that may represent developing acute diverticulitis. The appendix is normal. Lymphatics: No mesenteric, retroperitoneal or periportal lymphadenopathy. Vasculature: The abdominal aorta is normal in in caliber. Pelvic Organs: The uterus is surgically absent. No adnexal lesion is identified. Bones/soft tissues: No acute abnormality. Multilevel degenerative changes of the lumbar spine noted. Other: None. IMPRESSION: 1. Findings suggestive of developing acute non complicated proximal sigmoid colon diverticulitis. No evidence of perforation or abscess formation.
[2024-10-30 19:00] VITALS: BP 120/54; PULSE 71; RESP 18; TEMP 98.3; O2SAT 97
[2024-10-30 20:00] VITALS: PULSE 71; RESP 18; O2SAT 97
[2024-10-30 21:00] VITALS: BP 120/54; PULSE 71; RESP 18; TEMP 98.3; O2SAT 97
[2024-10-30] MEDS: ACETAMINOPHEN 325 MG TAB PO PRN (21:04)
[2024-10-30] MEDS: MELATONIN 5 MG TAB PO PRN (22:51)
[2024-10-30] MEDS: ZOLPIDEM TARTRATE 5 MG TAB PO PRN (23:55)
[2024-10-31] VITALS (9 sets, daily range): BP systolic 140–182; BP diastolic 76–93; PULSE 53–87; RESP 18–20; TEMP 97.7–98.1; O2SAT 93–96
[2024-10-31] MEDS: HYDROcodone-ACET 5/325MG TAB PO PRN (04:30)
[2024-10-31 07:21] LABS: Alanine Aminotransferase 18 U/L (7-40); Alkaline Phosphatase 77 U/L (46-116); Anion Gap 12 (5-15); Calcium 9.4 mg/dL (8.7-10.4); Chloride 104 mmol/L (98-107); Potassium 3.7 mmol/L (3.5-5.1)
[2024-10-31 07:22] LABS: Albumin 4.2 g/dL (3.2-4.8); Aspartate Aminotransferase 20 U/L (13-40); Bilirubin, Total 0.5 mg/dL (0.2-1.0); Total Protein 6.4 g/dL (5.7-8.2)
[2024-10-31 07:24] LABS: Sodium 135 mmol/L (136-145)
[2024-10-31 07:25] LABS: BUN/Creatinine Ratio 9.4 (10.0-20.0); Blood Urea Nitrogen < 5 mg/dL (9-23); Carbon Dioxide 19 mmol/L (20-31); Glucose 107 mg/dL (74-106)
[2024-10-31 07:26] LABS: Basophils # (auto) 0 10 ^3/uL (0-0.2); Basophils % (auto) 0.8 % (0.0-2.0); Eosinophils # (auto) 0 10 ^3/uL (0-0.8); Eosinophils % (auto) 0.1 % (0.0-7.0); Hematocrit 39.5 % (36.0-46.0); Hemoglobin 13.2 g/dL (12.2-16.2); Lymphocytes # (auto) 1.9 10 ^3/uL (0.4-5.4); Mean Corpuscular Hemoglobin 30.7 pg (28.0-32.0); Mean Corpuscular Hgb Conc. 33.4 g/dL (32.0-36.0); Mean Corpuscular Volume 91.8 fL (80.0-100.0); Monocytes # (auto) 0.5 10 ^3/uL (0-1.3); Monocytes % (auto) 10.7 % (0.0-12.0); Neutrophils # (auto) 2.3 10 ^3/uL (1.6-8.6); Neutrophils % (auto) 49.4 % (37.0-80.0); Nucleated Red Blood Cells % 0.2 %; Platelet Count (auto) 163 10^3/uL (140-450); Red Blood Cells 4.31 10^6/uL (4.0-5.20); Red Cell Distribution Width 14.1 % (11.8-14.3); White Blood Cell 4.7 10^3/uL (4.4-10.8)
[2024-10-31] MEDS ORDERED: [UNRECOGNIZED DRUG - CODE] PO (07:37)
[2024-10-31] MEDS ORDERED: IBUP-1456 PO (07:39)
[2024-10-31] MEDS: PANTOPRAZOLE 40 MG/10 ML VIAL INJ IV SCH (08:57)
--- NOTE | 2024-10-31 11:35 | ECG ---
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
--- NOTE | 2024-10-31 13:20 | DVHPN2 ---
Reviewed: Care Plan, H&P, Labs, Medications, Previous Orders, Radiology Changes from previous H/P or p: No Changes Eyes: No Pain, No Vision change, No Conjunctivae inflammation, No Eyelid inflammation, No Other, No Redness Cardiovascular: No Chest Pain, No Palpitations, No Orthopnea, No Paroxysmal Noc. Dyspnea, No Edema, No Lt Headedness, No Other Respiratory: No Cough, No Dry, No Shortness of breath, No SOB with excertion, No Wheezing, No Hemoptysis, No Pleuritic Pain, No Sputum, No Other Gastrointestinal: Nausea, Vomiting, Abdominal Pain, Diarrhea; No Constipation, No Melena, No Hematochezia, No Other Genitourinary: No Dysuria, No Frequency, No Incontinence, No Hematuria, No Retention, No Other Musculoskeletal: No other, No neck pain, No shoulder pain, No arm pain, No back pain, No hand pain, No leg pain, No foot pain Skin: No Rash, No Lesions, No Jaundice, No Bruising, No Other Objective Vitals Vital Signs Date Time Temp Pulse Resp B/P (MAP) Pulse Ox O2 Delivery O2 Flow Rate FiO2 10/31/24 11:52 97.9 80 20 161/90 (113) 93 97.9 10/31/24 08:00 Room Air* 0 21 Intake/Output Intake and Output 10/31/24 07:00 Intake Total 1475 ml Balance 1475 ml Intake Oral 275 ml IV Total 1200 ml # Voids 2 Medications Current Medications Medications Dose Ordered Sig/Shay Route Start Time Stop Time Status Last Admin Dose Admin Pantoprazole Sodium 40 mg DAILY IV 10/31/24 10:00 10/31/24 08:57 40 MG Ondansetron HCl 4 mg Q4HP PRN IV 10/30/24 16:45 Acetaminophen 650 mg Q6HP PRN PO 10/30/24 16:45 10/30/24 21:04 650 MG Acetaminophen/ Hydrocodone Bitart 1 tab Q6HPRN PRN PO 10/30/24 22:30 10/31/24 04:30 1 TAB Zolpidem Tartrate 5 mg HSPRN PRN PO 10/30/24 23:45 10/30/24 23:55 5 MG Laboratory Results Laboratory Tests 10/31/24 06:32 Chemistry Test 10/31/24 06:32 Albumin 4.2 g/dL (3.2-4.8) Calcium Level 9.4 mg/dL (8.7-10.4) Total Protein 6.4 g/dL (5.7-8.2) LFT Test 10/31/24 06:32 Alanine Aminotransferase (ALT) 18 U/L (7-40) Alkaline Phosphatase 77 U/L (46-116) Aspartate Amino Transferase (AST) 20 U/L (13-40) Total Bilirubin 0.5 mg/dL (0.2-1.0) Urinalysis Test 10/30/24 08:10 Urine Color Light-yellow (Yellow) Urine Clarity Clear (Clear) Urine pH 8.0 (5.0-9.0) Urine Specific [place] 1.016 (1.001-1.035) Urine Protein Negative (Negative) Urine Ketones Negative (Negative) Urine Blood Negative /uL (Negative) Urine Nitrite Negative (Negative) Urine Bilirubin Negative (Negative) Urine Urobilinogen Normal mg/dL (Negative) Urine Leukocyte Esterase Negative /uL (Negative) Urine RBC None seen /hpf (0 - 4) Urine Microscopic WBC 1 /HPF (0-5) Urine Squamous Epithelial Cells None seen /hpf (<5) Urine Amorphous Crystals Few /hpf (None Seen) Urine Bacteria None seen /hpf (None Seen) Urine Yeast (Budding) Few /hpf (None Seen) Urine Glucose Normal mg/dL (Normal) Labs and/or images reviewed: Labs reviewed by me, Image(s) reviewed by me Assessment/Plan Assessment/Plan Acute diverticulitis: Rocephin Flagyl Dysphagia: Consult for GI Dr. Martin History of gastritis Hypertension Hypercholesterolemia History of CVA Anxiety Time Spent 50 minutes Advanced care planning time 20 minutes Daughter Kayla [phone] bedside Examined the patient with the help of precision lens generator Plan discussed with: Patient Date of Service: Oct 31, 2024 Billing Provider: NADIA CONKLIN MD Common Visit Codes: [id number] INP/OBS CARE(HIGH) Secondary Visit Codes: [id number] CARE PLAN 30 MINUTES NADIA CONKLIN MD Oct 31, 2024 13:20
[2024-10-31] MEDS: ONDANSETRON HCL 4 MG/2 ML VIAL IV PRN (14:34)
[2024-10-31] MEDS: cefTRIAXone 1GM/50ML D5W 50 ML IV ONE (14:34)
[2024-10-31] MEDS: LACTATED RINGER'S 1,000 ML IV SCH (14:45)
[2024-10-31] MEDS: metroNIDAZOLE 500MG/100ML 100 ML IV SCH (14:45)
[2024-10-31] MEDS: ALPRAZolam 0.5 MG TAB PO PRN (14:50)
[2024-10-31] MEDS: METOPROLOL TARTRATE 50 MG TAB PO SCH (21:43)
[2024-11-01] VITALS (8 sets, daily range): BP systolic 85–171; BP diastolic 54–83; PULSE 51–91; RESP 16–20; TEMP 97.5–98; O2SAT 95–97
[2024-11-01] MEDS: hydrALAZINE HCL 20 MG/ML VL IV ONE (04:51)
--- NOTE | 2024-11-01 07:50 | DVHINCON2 ---
Date of service: Nov 01, 2024 Referring Physician Nadia Conklin Reason for Consultation Dysphagia History of Present Illness The patient is a 73-year-old female with a past medical history significant for hyperlipidemia, hypertension, history of CVA, history of endoscopy with Dr. Galeas five months ago showing gastritis, admitted with abdominal pain and found to have acute uncomplicated diverticulitis of the colon, noted to have issues with swallowing. Patient states that since the endoscopy five months ago she has had difficulty swallowing. Patient complains more of a dry mouth then dysphagia. She denies hematemesis, hemoptysis or through impaction. She has difficulty with liquids as well as solid foods. GI consultation obtained given her symptoms of dysphagia. Past Medical History Past medical history as above Past Surgical History History of section History of hernia repair Family History: Diabetes mellitus G8 MOTHER Hypertension G8 MOTHER Family History Denies gastrointestinal diseases or malignancies Social History Denies tobacco, alcohol, or recreational drug abuse Allergies: Coded Allergies: Dipyridamole (Verified Allergy, Severe, 03/21/24) Propoxyphene (Verified Allergy, Severe, 03/21/24) Iodine (Verified Allergy, Intermediate, 05/23/24) Atorvastatin (Verified Allergy, Unknown, 08/12/24) Uncoded Allergies: CONTRAST (Allergy, Unknown, 10/30/24) Home Meds Active Scripts Hydroxyzine HCl (Hydroxyzine Hydrochloride) 25 Mg Tab, 25 MG PO QHSP PRN for 30 Days, #30 TAB Prov:KAREEM WOLF NP 07/31/24 Pantoprazole Sodium Sesquihydr (Pantoprazole Sodium) 40 Mg Tab, 40 MG PO DAILY, #30 TAB Prov:NADIA CONKLIN MD 06/05/24 Hydrocodone-Acetaminophen (Hydrocodone Bitartrate/AC 5-325 mg) 1 Tab Tab, 1 TAB PO QID PRN, #20 TAB Prov:NADIA CONKLIN MD 06/05/24 Atorvastatin Calcium (Lipitor) 20 Mg Tab, 1 TAB PO DAILY, #30 TAB 1 Refill Prov:NADIA CONKLIN MD 06/05/24 Cobalamine Combinations (B-12 + Folic Acid 2500-400 Mcg) 1 Tab Tab, 1 TAB PO BS for 30 Days, #30 TAB Prov:EREN BOWIE 05/25/24 Atorvastatin Calcium (ATORVASTATIN CALCIUM) 20 Mg Tab, 20 MG PO DAILY for 30 Days, #30 TAB Prov:EREN BOWIE RESIDENT 05/25/24 Acetaminophen (Acetaminophen) 325 Mg Tab, 650 MG PO Q6HP PRN for 10 Days, #80 TAB Prov:EREN BOWIE RESIDENT 05/25/24 Zolpidem Tartrate (Ambien) 10 Mg Tab, 1 TAB PO QPM PRN, #30 TAB 5 Refills Prov:NADIA CONKLIN MD 03/24/24 Aspirin (Aspirin Adult Low Dose) 81 Mg Tab, 81 MG PO DAILY, #180 TAB Prov:NADIA CONKLIN MD 03/24/24 Reported Medications Ibuprofen (Ibuprofen) 800 Mg Tab, 800 MG PO BIDPRN PRN for PAIN SCALE 1 THRU 6, MG 10/31/24 Simethicone (Gas-X Extra Strength) 125 Mg Chw, 125 MG PO BID, TAB.CHEW 10/31/24 Hydralazine Hcl (Hydralazine Hcl) 25 Mg Tab, 1 TAB PO BID for 90 Days, #180 07/29/24 Atorvastatin Calcium (Lipitor) 20 Mg Tab, 1 TAB PO DAILY for 90 Days, #90 07/29/24 Hydrocodone-Acetaminophen (Hydrocodone Bitartrate/AC 5-325 mg) 1 Tab Tab, 1 TAB PO DAILY PRN for PAIN for 15 Days, #15 07/29/24 Diclofenac Sodium (Diclofenac Sodium Ec) 50 Mg Tab, 1 TAB PO BID for 30 Days, #60 07/29/24 Levothyroxine Sodium (Levothyroxine Sodium) 25 Mcg Tab, 1 TAB PO DAILY for 90 Days, #90 07/29/24 Metformin Hydrochloride (Metformin Hcl) 500 Mg Tab, 1 TAB PO DAILY for 90 Days, #90 07/29/24 Paroxetine Hydrochloride (Paroxetine Hydrochloride) 20 Mg Tab, 1 TAB PO DAILY for 30 Days, #30 07/29/24 Cephalexin Monohydrate (Cephalexin) 500 Mg Cap, 1 CAP PO QID for 5 Days, #20 07/29/24 Aspirin (Aspirin 81 Low Dose) 81 Mg Chw, 1 TAB PO DAILY for 90 Days, #90 07/29/24 Ibuprofen (Ibuprofen) 800 Mg Tab, 1 TAB PO TID for 30 Days, #90 07/28/24 Gabapentin (Gabapentin) 600 Mg Tab, 1 TAB PO TID for 90 Days, #270 07/28/24 Polyethylene Glycol-Propylene (Systane) Doretha, 1 DROP EACHEYE QIDPRN, #30 ML 5 Refills 05/24/24 Metoprolol Tartrate (LOPRESSOR TABLET) 50 Mg Tb, 1 TAB PO BID, #60 TAB 5 Refills 03/22/24 Discontinued Reported Medications Zolpidem Tartrate (Zolpidem Tartrate) 10 Mg Tab, 1 TAB PO QPM for 30 Days, #30 07/29/24 Metoprolol Tartrate (Lopressor) 50 Mg Tab, 1 TAB PO BID for 90 Days, #180 07/29/24 Pantoprazole Sodium Sesquihydr (Protonix) 40 Mg Tab, 1 TAB PO DAILY for 90 Days, #90 07/28/24 Gabapentin (Gabapentin) 600 Mg Tab, 600 MG PO for 30 Days, MG 03/22/24 Hydralazine Hcl (Hydralazine Hcl) 25 Mg Tab, 25 MG PO DAILY for 30 Days, MG 03/22/24 Current Medications Current Medications Medications (Trade) Dose Ordered Sig/Shay Route PRN Reason Start Time Stop Time Status Last Admin Pantoprazole Sodium (Protonix) 40 mg DAILY IV 10/31/24 10:00 10/31/24 08:57 Ceftriaxone Sodium 50 ml @ 100 mls/hr DAILY@09 IV 11/01/24 09:00 Metronidazole 100 ml @ 100 mls/hr Q8HR IV 10/31/24 14:00 11/01/24 05:25 Metoprolol Tartrate (Lopressor Tablet) 50 mg BID PO 10/31/24 22:00 10/31/24 21:43 Lactated Ringer's 1,000 ml @ 125 mls/hr Q8H IV 10/31/24 14:15 10/31/24 14:45 Alprazolam (Xanax Tablet) 1 mg Q8HPRN PRN PO ANXIETY 10/31/24 14:15 10/31/24 23:07 Review of Systems 12 point review of systems as per HPI Vital Signs Vital Signs Date Time Temp Pulse Resp B/P (MAP) Pulse Ox O2 Delivery O2 Flow Rate FiO2 11/01/24 05:00 97.9 60 18 171/83 (112) 95 97.9 10/31/24 20:00 Room Air* 0 21 Physical Exam General: Alert and oriented adult female lying in bed no distress HEENT: [id number] P-clear Heart: Regular rate rhythm Lungs: Clear to auscultation anteriorly Abdomen: Soft mild to moderate lower abdominal tenderness to palpation with voluntary guarding extremity: No clubbing cyanosis or edema Labs/Diagnostic Data Labs Test 10/31/24 06:32 10/30/24 09:08 10/30/24 08:10 10/30/24 00:00 Range/Units White Blood Count 4.7 4.4-10.8 10^3/uL Red Blood Count 4.31 4.0-5.20 10^6/uL Hemoglobin 13.2 12.2-16.2 g/dL Hematocrit 39.5 36.0-46.0 % Mean Corpuscular Volume 91.8 80.0-100.0 fL Mean Corpuscular Hemoglobin 30.7 28.0-32.0 pg Mean Corpuscular Hemoglobin Concent 33.4 32.0-36.0 g/dL Red Cell Distribution Width 14.1 11.8-14.3 % Platelet Count 163 140-450 10^3/uL Mean Platelet Volume 9.7 6.9-10.8 fL Neutrophils (%) (Auto) 49.4 37.0-80.0 % Lymphocytes (%) (Auto) 39.0 10.0-50.0 % Monocytes (%) (Auto) 10.7 0.0-12.0 % Eosinophils (%) (Auto) 0.1 0.0-7.0 % Basophils (%) (Auto) 0.8 0.0-2.0 % Neutrophils # (Auto) 2.3 1.6-8.6 10 ^3/uL Lymphocytes # (Auto) 1.9 0.4-5.4 10 ^3/uL Monocytes # (Auto) 0.5 0-1.3 10 ^3/uL Eosinophils # (Auto) 0 0-0.8 10 ^3/uL Basophils # (Auto) 0 0-0.2 10 ^3/uL Nucleated Red Blood Cells 0.2 % Sodium Level 135 L 136-145 mmol/L Potassium Level 3.7 3.5-5.1 mmol/L Chloride Level 104 98-107 mmol/L Carbon Dioxide Level 19 L 20-31 mmol/L Anion Gap 12 5-15 Blood Urea Nitrogen < 5 L 9-23 mg/dL Creatinine 0.53 L 0.550-1.02 mg/dL Glomerular Filtration Rate Calc 96 >90 mL/min BUN/Creatinine Ratio 9.4 L 10.0-20.0 Serum Glucose 107 H 74-106 mg/dL Calcium Level 9.4 8.7-10.4 mg/dL Total Bilirubin 0.5 0.2-1.0 mg/dL Aspartate Amino Transferase (AST) 20 13-40 U/L Alanine Aminotransferase (ALT) 18 7-40 U/L Alkaline Phosphatase 77 46-116 U/L Total Protein 6.4 5.7-8.2 g/dL Albumin 4.2 3.2-4.8 g/dL Troponin I High Sensitivity 7 </=34 ng/L Urine Color Light-yellow Yellow Urine Clarity Clear Clear Urine pH 8.0 5.0-9.0 Urine Specific [place] 1.016 1.001-1.035 Urine Protein Negative Negative Urine Ketones Negative Negative Urine Blood Negative Negative /uL Urine Nitrite Negative Negative Urine Bilirubin Negative Negative Urine Urobilinogen Normal Negative mg/dL Urine Leukocyte Esterase Negative Negative /uL Urine RBC None seen 0 - 4 /hpf Urine Microscopic WBC 1 0-5 /HPF Urine Squamous Epithelial Cells None seen <5 /hpf Urine Amorphous Crystals Few None Seen /hpf Urine Bacteria None seen None Seen /hpf Urine Yeast (Budding) Few None Seen /hpf Urine Glucose Normal Normal mg/dL Influenza Type A Antigen Negative Negative Influenza Type B Antigen Negative Negative SARS-CoV-2 Antigen (Rapid) Negative NEGATIVE Assessment # history of CVA # acute diverticulitis # dysphagia Problems(with codes): (1) Acute abdominal pain (2) Stroke-like symptoms Plan/Recommendation 1. Hold off on EGD given the fact that the patient had recent EGD and is unlikely to have any significant new findings that can explain dysphagia. Differential diagnosis does include hiatal hernia, erosive esophagitis, musculoskeletal or neurologic causes, dry mouth, candidal esophagitis, but doubt any malignancy or stricture. 2. We will order imaging of the esophagus with esophagram 3. Anti-reflux precautions 4. Continue with proton pump inhibitor 5. Consider EGD pending esophagram Plan discussed with: Patient JOY REYES MD Nov 01, 2024 07:50
[2024-11-01] MEDS: cefTRIAXone 1GM/50ML D5W 50 ML IV SCH (08:09)
[2024-11-01 08:39] LABS: Basophils # (auto) 0 10 ^3/uL (0-0.2); Basophils % (auto) 0.3 % (0.0-2.0); Eosinophils # (auto) 0 10 ^3/uL (0-0.8); Eosinophils % (auto) 0.2 % (0.0-7.0); Hematocrit 41.5 % (36.0-46.0); Hemoglobin 13.5 g/dL (12.2-16.2); Lymphocytes # (auto) 1.8 10 ^3/uL (0.4-5.4); Lymphocytes % (auto) 31.9 % (10.0-50.0); Mean Corpuscular Hemoglobin 29.9 pg (28.0-32.0); Mean Corpuscular Hgb Conc. 32.5 g/dL (32.0-36.0); Mean Corpuscular Volume 92.2 fL (80.0-100.0); Monocytes # (auto) 0.3 10 ^3/uL (0-1.3); Monocytes % (auto) 6.2 % (0.0-12.0); Neutrophils # (auto) 3.4 10 ^3/uL (1.6-8.6); Neutrophils % (auto) 61.4 % (37.0-80.0); Nucleated Red Blood Cells % 0.1 %; Platelet Count (auto) 164 10^3/uL (140-450); Red Blood Cells 4.51 10^6/uL (4.0-5.20); Red Cell Distribution Width 14.4 % (11.8-14.3); White Blood Cell 5.5 10^3/uL (4.4-10.8)
[2024-11-01 09:08] LABS: Alanine Aminotransferase 21 U/L (7-40); Albumin 4.3 g/dL (3.2-4.8); Alkaline Phosphatase 74 U/L (46-116); Anion Gap 11 (5-15); Aspartate Aminotransferase 22 U/L (13-40); Bilirubin, Total 0.6 mg/dL (0.2-1.0); Calcium 9.4 mg/dL (8.7-10.4); Carbon Dioxide 21 mmol/L (20-31); Chloride 106 mmol/L (98-107); Potassium 3.6 mmol/L (3.5-5.1); Sodium 138 mmol/L (136-145); Total Protein 6.4 g/dL (5.7-8.2)
[2024-11-01 09:11] LABS: BUN/Creatinine Ratio 8.6 (10.0-20.0); Blood Urea Nitrogen < 5 mg/dL (9-23); Glucose 130 mg/dL (74-106)
[2024-11-01] MEDS: GABAPENTIN 300 MG CAP PO SCH (20:54)
[2024-11-02] VITALS (9 sets, daily range): BP systolic 136–159; BP diastolic 52–81; PULSE 50–77; RESP 14–20; TEMP 97.7–98.3; O2SAT 95–98
[2024-11-02 07:21] LABS: Basophils # (auto) 0 10 ^3/uL (0-0.2); Basophils % (auto) 0.4 % (0.0-2.0); Eosinophils # (auto) 0 10 ^3/uL (0-0.8); Eosinophils % (auto) 0.7 % (0.0-7.0); Hematocrit 38.3 % (36.0-46.0); Hemoglobin 12.6 g/dL (12.2-16.2); Lymphocytes # (auto) 1.9 10 ^3/uL (0.4-5.4); Lymphocytes % (auto) 36.2 % (10.0-50.0); Mean Corpuscular Hgb Conc. 32.9 g/dL (32.0-36.0); Mean Corpuscular Volume 91.3 fL (80.0-100.0); Monocytes # (auto) 0.4 10 ^3/uL (0-1.3); Monocytes % (auto) 7.9 % (0.0-12.0); Neutrophils # (auto) 2.9 10 ^3/uL (1.6-8.6); Neutrophils % (auto) 54.8 % (37.0-80.0); Nucleated Red Blood Cells % 0.3 %; Platelet Count (auto) 161 10^3/uL (140-450); Red Cell Distribution Width 14.2 % (11.8-14.3); White Blood Cell 5.3 10^3/uL (4.4-10.8)
[2024-11-02 07:43] LABS: Alanine Aminotransferase 20 U/L (7-40); Albumin 3.6 g/dL (3.2-4.8); Alkaline Phosphatase 63 U/L (46-116); Anion Gap 10 (5-15); Calcium 8.8 mg/dL (8.7-10.4); Carbon Dioxide 21 mmol/L (20-31); Glucose 96 mg/dL (74-106); Potassium 3.7 mmol/L (3.5-5.1); Sodium 141 mmol/L (136-145)
[2024-11-02 07:44] LABS: Aspartate Aminotransferase 19 U/L (13-40); Bilirubin, Total 0.4 mg/dL (0.2-1.0)
[2024-11-02 07:58] LABS: BUN/Creatinine Ratio 9.1 (10.0-20.0); Blood Urea Nitrogen < 5 mg/dL (9-23); Chloride 110 mmol/L (98-107); Total Protein 5.4 g/dL (5.7-8.2)
--- NOTE | 2024-11-02 12:54 | DVHPN2 ---
Subjective The patient is seen and examined at bedside. Still complain of abdominal pain. Reviewed: Care Plan, H&P, Labs, Medications, Previous Orders, Radiology Changes from previous H/P or p: No Changes Eyes: No Pain, No Vision change, No Conjunctivae inflammation, No Eyelid inflammation, No Other, No Redness Cardiovascular: No Chest Pain, No Palpitations, No Orthopnea, No Paroxysmal Noc. Dyspnea, No Edema, No Lt Headedness, No Other Respiratory: No Cough, No Dry, No Shortness of breath, No SOB with excertion, No Wheezing, No Hemoptysis, No Pleuritic Pain, No Sputum, No Other Gastrointestinal: Nausea, Vomiting, Abdominal Pain, Diarrhea; No Constipation, No Melena, No Hematochezia, No Other Genitourinary: No Dysuria, No Frequency, No Incontinence, No Hematuria, No Retention, No Other Musculoskeletal: No other, No neck pain, No shoulder pain, No arm pain, No back pain, No hand pain, No leg pain, No foot pain Skin: No Rash, No Lesions, No Jaundice, No Bruising, No Other Objective Vitals Vital Signs Date Time Temp Pulse Resp B/P (MAP) Pulse Ox O2 Delivery O2 Flow Rate FiO2 11/01/24 12:30 97.9 50 14 159/72 (101) 96 97.9 11/01/24 08:00 Room Air* 0 21 Intake/Output Intake and Output 11/01/24 07:00 Intake Total 3525 ml Balance 3525 ml Intake Oral 1050 ml IV Total 2475 ml # Voids 4 General Appearance: Alert, Cooperative, No acute distress HEENT: Atraumatic, PERRLA, EOMI, Mucous membr. moist/pink Neck: Supple Lungs: Clear to auscultation, Normal air movement Cardiovascular: Regular rate, Normal S1, Normal S2, No murmurs, Gallops, Rubs Abdomen: Normal bowel sounds, Soft, Other (Diffuse tenderness on four quadrant) Neuro: Cranial nerves 3-12 NL Psych/Mental Status: Mental status NL Medications Current Medications Medications Dose Ordered Sig/Shay Route Start Time Stop Time Status Last Admin Dose Admin Pantoprazole Sodium 40 mg DAILY IV 10/31/24 10:00 11/02/24 09:18 40 MG Ondansetron HCl 4 mg Q4HP PRN IV 10/30/24 16:45 10/31/24 14:34 4 MG Acetaminophen 650 mg Q6HP PRN PO 10/30/24 16:45 11/01/24 15:53 650 MG Acetaminophen/ Hydrocodone Bitart 1 tab Q6HPRN PRN PO 10/30/24 22:30 11/02/24 11:07 1 TAB Zolpidem Tartrate 5 mg HSPRN PRN PO 10/30/24 23:45 10/30/24 23:55 5 MG Ceftriaxone Sodium 50 ml @ 100 mls/hr DAILY@09 IV 11/01/24 09:00 11/02/24 09:18 100 MLS/HR Metronidazole 100 ml @ 100 mls/hr Q8HR IV 10/31/24 14:00 11/02/24 05:48 100 MLS/HR Metoprolol Tartrate 50 mg BID PO 10/31/24 22:00 11/02/24 09:18 50 MG Lactated Ringer's 1,000 ml @ 125 mls/hr Q8H IV 10/31/24 14:15 11/02/24 03:13 125 MLS/HR Alprazolam 1 mg Q8HPRN PRN PO 10/31/24 14:15 11/01/24 20:53 1 MG Gabapentin 600 mg TID PO 11/01/24 22:00 11/02/24 05:48 600 MG Hydralazine HCl 10 mg Q6HP PRN IV 11/01/24 15:00 Laboratory Results Laboratory Tests 11/02/24 06:43 Chemistry Test 11/02/24 06:43 Albumin 3.6 g/dL (3.2-4.8) Calcium Level 8.8 mg/dL (8.7-10.4) Total Protein 5.4 g/dL (5.7-8.2) L LFT Test 11/02/24 06:43 Alanine Aminotransferase (ALT) 20 U/L (7-40) Alkaline Phosphatase 63 U/L (46-116) Aspartate Amino Transferase (AST) 19 U/L (13-40) Total Bilirubin 0.4 mg/dL (0.2-1.0) Urinalysis Test 10/30/24 08:10 Urine Color Light-yellow (Yellow) Urine Clarity Clear (Clear) Urine pH 8.0 (5.0-9.0) Urine Specific [place] 1.016 (1.001-1.035) Urine Protein Negative (Negative) Urine Ketones Negative (Negative) Urine Blood Negative /uL (Negative) Urine Nitrite Negative (Negative) Urine Bilirubin Negative (Negative) Urine Urobilinogen Normal mg/dL (Negative) Urine Leukocyte Esterase Negative /uL (Negative) Urine RBC None seen /hpf (0 - 4) Urine Microscopic WBC 1 /HPF (0-5) Urine Squamous Epithelial Cells None seen /hpf (<5) Urine Amorphous Crystals Few /hpf (None Seen) Urine Bacteria None seen /hpf (None Seen) Urine Yeast (Budding) Few /hpf (None Seen) Urine Glucose Normal mg/dL (Normal) Labs and/or images reviewed: Labs reviewed by me Assessment/Plan Assessment/Plan Acute diverticulitis Dysphagia History of gastritis Hypertension Hypercholesterolemia History of CVA Anxiety Continuing current management. Continuing with IV antibiotic Rocephin and Flagyl. Waiting for GI specialist to see the patient Continuing hypertensive medication. Continuing with pain medication This medical document was created using an electronic medical record system with [employer] direct computerized dictation system. Although this document has been carefully reviewed, there may still be some phonetic and typographical errors. These areas are purely typographical due to imperfections of the software programs, and do not reflect any compromise in the patient's medical care. Plan discussed with: Patient My Orders Orders - ROBERT ANGULO MD Procedure Category Date Status Time Gabapentin Capsule PHA 11/01/24 In Process (Neurontin Capsule) 22:00 Hydralazine Injection PHA 11/01/24 In Process (Apresoline Inject 15:00 Date of Service: Nov 01, 2024 Billing Provider: ROBERT ANGULO MD Common Visit Codes: [id number] INP/OBS CARE(HIGH) ROBERT ANGULO MD Nov 02, 2024 12:54
--- NOTE | 2024-11-02 12:55 | DVHPN2 ---
Subjective The patient is seen and examined at bedside. Still complain of severe abdominal pain with nausea but no vomiting Reviewed: Care Plan, H&P, Labs, Medications, Previous Orders, Radiology Changes from previous H/P or p: No Changes Eyes: No Pain, No Vision change, No Conjunctivae inflammation, No Eyelid inflammation, No Other, No Redness Cardiovascular: No Chest Pain, No Palpitations, No Orthopnea, No Paroxysmal Noc. Dyspnea, No Edema, No Lt Headedness, No Other Respiratory: No Cough, No Dry, No Shortness of breath, No SOB with excertion, No Wheezing, No Hemoptysis, No Pleuritic Pain, No Sputum, No Other Gastrointestinal: Nausea, Vomiting, Abdominal Pain, Diarrhea; No Constipation, No Melena, No Hematochezia, No Other Genitourinary: No Dysuria, No Frequency, No Incontinence, No Hematuria, No Retention, No Other Musculoskeletal: No other, No neck pain, No shoulder pain, No arm pain, No back pain, No hand pain, No leg pain, No foot pain Skin: No Rash, No Lesions, No Jaundice, No Bruising, No Other Objective Vitals Vital Signs Date Time Temp Pulse Resp B/P (MAP) Pulse Ox O2 Delivery O2 Flow Rate FiO2 11/02/24 12:30 97.9 50 14 159/72 (101) 96 97.9 11/02/24 08:00 Room Air* 0 21 Intake/Output Intake and Output 11/02/24 07:00 Intake Total 3525 ml Balance 3525 ml Intake Oral 1050 ml IV Total 2475 ml # Voids 4 General Appearance: Alert, Cooperative, No acute distress HEENT: Atraumatic, PERRLA, EOMI, Mucous membr. moist/pink Neck: Supple Lungs: Clear to auscultation Cardiovascular: Regular rate, Normal S1, Normal S2, No murmurs, Gallops, Rubs Abdomen: Normal bowel sounds, Soft, No tenderness Neuro: Cranial nerves 3-12 NL Psych/Mental Status: Mental status NL Medications Current Medications Medications Dose Ordered Sig/Shay Route Start Time Stop Time Status Last Admin Dose Admin Pantoprazole Sodium 40 mg DAILY IV 10/31/24 10:00 11/02/24 09:18 40 MG Ondansetron HCl 4 mg Q4HP PRN IV 10/30/24 16:45 10/31/24 14:34 4 MG Acetaminophen 650 mg Q6HP PRN PO 10/30/24 16:45 11/01/24 15:53 650 MG Acetaminophen/ Hydrocodone Bitart 1 tab Q6HPRN PRN PO 10/30/24 22:30 11/02/24 11:07 1 TAB Zolpidem Tartrate 5 mg HSPRN PRN PO 10/30/24 23:45 10/30/24 23:55 5 MG Ceftriaxone Sodium 50 ml @ 100 mls/hr DAILY@09 IV 11/01/24 09:00 11/02/24 09:18 100 MLS/HR Metronidazole 100 ml @ 100 mls/hr Q8HR IV 10/31/24 14:00 11/02/24 05:48 100 MLS/HR Metoprolol Tartrate 50 mg BID PO 10/31/24 22:00 11/02/24 09:18 50 MG Lactated Ringer's 1,000 ml @ 125 mls/hr Q8H IV 10/31/24 14:15 11/02/24 03:13 125 MLS/HR Alprazolam 1 mg Q8HPRN PRN PO 10/31/24 14:15 11/01/24 20:53 1 MG Gabapentin 600 mg TID PO 11/01/24 22:00 11/02/24 05:48 600 MG Hydralazine HCl 10 mg Q6HP PRN IV 11/01/24 15:00 Laboratory Results Laboratory Tests 11/02/24 06:43 Chemistry Test 11/02/24 06:43 Albumin 3.6 g/dL (3.2-4.8) Calcium Level 8.8 mg/dL (8.7-10.4) Total Protein 5.4 g/dL (5.7-8.2) L LFT Test 11/02/24 06:43 Alanine Aminotransferase (ALT) 20 U/L (7-40) Alkaline Phosphatase 63 U/L (46-116) Aspartate Amino Transferase (AST) 19 U/L (13-40) Total Bilirubin 0.4 mg/dL (0.2-1.0) Urinalysis Test 10/30/24 08:10 Urine Color Light-yellow (Yellow) Urine Clarity Clear (Clear) Urine pH 8.0 (5.0-9.0) Urine Specific [place] 1.016 (1.001-1.035) Urine Protein Negative (Negative) Urine Ketones Negative (Negative) Urine Blood Negative /uL (Negative) Urine Nitrite Negative (Negative) Urine Bilirubin Negative (Negative) Urine Urobilinogen Normal mg/dL (Negative) Urine Leukocyte Esterase Negative /uL (Negative) Urine RBC None seen /hpf (0 - 4) Urine Microscopic WBC 1 /HPF (0-5) Urine Squamous Epithelial Cells None seen /hpf (<5) Urine Amorphous Crystals Few /hpf (None Seen) Urine Bacteria None seen /hpf (None Seen) Urine Yeast (Budding) Few /hpf (None Seen) Urine Glucose Normal mg/dL (Normal) Labs and/or images reviewed: Labs reviewed by me Assessment/Plan Assessment/Plan Acute diverticulitis Dysphagia History of gastritis Hypertension Hypercholesterolemia History of CVA Anxiety Neuropathy Continuing current management. Continuing with IV antibiotic Rocephin and Flagyl. Waiting for GI specialist to see the patient Continuing hypertensive medication. Continuing with pain medication And we will restart her home medication at home which is gabapentin 600 mg p.o. Q 8H This medical document was created using an electronic medical record system with [email or web address] direct computerized dictation system. Although this document has been carefully reviewed, there may still be some phonetic and typographical errors. These areas are purely typographical due to imperfections of the software programs, and do not reflect any compromise in the patient's medical care. Plan discussed with: Patient My Orders Orders - ROBERT ANGULO MD Procedure Category Date Status Time Gabapentin Capsule PHA 11/01/24 In Process (Neurontin Capsule) 22:00 Hydralazine Injection PHA 11/01/24 In Process (Apresoline Inject 15:00 Date of Service: Nov 02, 2024 Billing Provider: ROBERT ANGULO MD Common Visit Codes: [id number] INP/OBS CARE(HIGH) ROBERT ANGULO MD Nov 02, 2024 12:55
--- NOTE | 2024-11-02 16:24 | PRN ---
Misceleneous Note Note Note November 02, 2024 Subjective: Patient continues to experience dysphagia. Patient is awaiting imaging which is scheduled for tomorrow Vital Signs Date Time Temp Pulse Resp B/P (MAP) Pulse Ox O2 Delivery O2 Flow Rate FiO2 11/02/24 12:30 97.9 50 14 159/72 (101) 96 97.9 11/02/24 08:00 Room Air* 0 21 Current Medications Medications (Trade) Dose Ordered Sig/Shay Route Start Time Stop Time Status Last Admin Dose Admin Pantoprazole Sodium (Protonix) 40 mg DAILY IV 10/31/24 10:00 11/02/24 09:18 Ondansetron HCl (Zofran) 4 mg Q4HP PRN IV 10/30/24 16:45 10/31/24 14:34 Acetaminophen (Tylenol Tablet) 650 mg Q6HP PRN PO 10/30/24 16:45 11/01/24 15:53 Acetaminophen/ Hydrocodone Bitart (Irving 5/325MG Tab) 1 tab Q6HPRN PRN PO 10/30/24 22:30 11/02/24 11:07 Zolpidem Tartrate (Ambien) 5 mg HSPRN PRN PO 10/30/24 23:45 10/30/24 23:55 Ceftriaxone Sodium 50 ml @ 100 mls/hr DAILY@09 IV 11/01/24 09:00 11/02/24 09:18 Metronidazole 100 ml @ 100 mls/hr Q8HR IV 10/31/24 14:00 11/02/24 13:03 Metoprolol Tartrate (Lopressor Tablet) 50 mg BID PO 10/31/24 22:00 11/02/24 09:18 Lactated Ringer's 1,000 ml @ 125 mls/hr Q8H IV 10/31/24 14:15 11/02/24 03:13 Alprazolam (Xanax Tablet) 1 mg Q8HPRN PRN PO 10/31/24 14:15 11/01/24 20:53 Gabapentin (Neurontin Capsule) 600 mg TID PO 11/01/24 22:00 11/02/24 13:03 Hydralazine HCl (Apresoline Injection) 10 mg Q6HP PRN IV 11/01/24 15:00 Current Medications Medications (Trade) Dose Ordered Sig/Shay Route PRN Reason Start Time Stop Time Status Last Admin Gabapentin (Neurontin Capsule) 600 mg TID PO 11/01/24 22:00 11/02/24 13:03 Vital Signs Date Time Temp Pulse Resp B/P (MAP) Pulse Ox O2 Delivery O2 Flow Rate FiO2 11/02/24 12:30 97.9 50 14 159/72 (101) 96 97.9 11/02/24 08:00 Room Air* 0 21 General: Alert and orientedX4 no distress Heart: Regular rate and rhythm Abdomen: Soft nontender nondistended Extremities: No clubbing cyanosis or edema Laboratory Tests Test 11/01/24 08:11 11/02/24 06:43 Range/Units White Blood Count 5.5 5.3 4.4-10.8 10^3/uL Red Blood Count 4.51 4.20 4.0-5.20 10^6/uL Hemoglobin 13.5 12.6 12.2-16.2 g/dL Hematocrit 41.5 38.3 36.0-46.0 % Mean Corpuscular Volume 92.2 91.3 80.0-100.0 fL Mean Corpuscular Hemoglobin 29.9 30.0 28.0-32.0 pg Mean Corpuscular Hemoglobin Concent 32.5 32.9 32.0-36.0 g/dL Red Cell Distribution Width 14.4 H 14.2 11.8-14.3 % Platelet Count 164 161 140-450 10^3/uL Mean Platelet Volume 9.5 9.2 6.9-10.8 fL Neutrophils (%) (Auto) 61.4 54.8 37.0-80.0 % Lymphocytes (%) (Auto) 31.9 36.2 10.0-50.0 % Monocytes (%) (Auto) 6.2 7.9 0.0-12.0 % Eosinophils (%) (Auto) 0.2 0.7 0.0-7.0 % Basophils (%) (Auto) 0.3 0.4 0.0-2.0 % Neutrophils # (Auto) 3.4 2.9 1.6-8.6 10 ^3/uL Lymphocytes # (Auto) 1.8 1.9 0.4-5.4 10 ^3/uL Monocytes # (Auto) 0.3 0.4 0-1.3 10 ^3/uL Eosinophils # (Auto) 0 0 0-0.8 10 ^3/uL Basophils # (Auto) 0 0 0-0.2 10 ^3/uL Nucleated Red Blood Cells 0.1 0.3 % Sodium Level 138 141 136-145 mmol/L Potassium Level 3.6 3.7 3.5-5.1 mmol/L Chloride Level 106 110 H 98-107 mmol/L Carbon Dioxide Level 21 21 20-31 mmol/L Anion Gap 11 10 5-15 Blood Urea Nitrogen < 5 L < 5 L 9-23 mg/dL Creatinine 0.58 0.55 0.550-1.02 mg/dL Glomerular Filtration Rate Calc 94 96 >90 mL/min BUN/Creatinine Ratio 8.6 L 9.1 L 10.0-20.0 Serum Glucose 130 H 96 74-106 mg/dL Calcium Level 9.4 8.8 8.7-10.4 mg/dL Total Bilirubin 0.6 0.4 0.2-1.0 mg/dL Aspartate Amino Transferase (AST) 22 19 13-40 U/L Alanine Aminotransferase (ALT) 21 20 7-40 U/L Alkaline Phosphatase 74 63 46-116 U/L Total Protein 6.4 5.4 L 5.7-8.2 g/dL Albumin 4.3 3.6 3.2-4.8 g/dL Impression: # abdominal pain # dysphagia Recommendations: 1. Follow up with imaging of esophagus tomorrow 2. Consider modified barium swallow versus repeat EGD 3. Continue current medications 4. We will be signing off to JOY Carrillo MD Nov 02, 2024 16:24
[2024-11-03 00:59] VITALS: BP 121/57; PULSE 65; RESP 15; TEMP 98; O2SAT 98
[2024-11-03 04:54] VITALS: BP 136/67; PULSE 62; RESP 16; TEMP 97.9; O2SAT 95
[2024-11-03 07:43] LABS: Basophils # (auto) 0 10 ^3/uL (0-0.2); Basophils % (auto) 0.3 % (0.0-2.0); Eosinophils # (auto) 0.1 10 ^3/uL (0-0.8); Eosinophils % (auto) 1.6 % (0.0-7.0); Hematocrit 36.5 % (36.0-46.0); Hemoglobin 11.9 g/dL (12.2-16.2); Lymphocytes # (auto) 1.8 10 ^3/uL (0.4-5.4); Lymphocytes % (auto) 30.9 % (10.0-50.0); Mean Corpuscular Hemoglobin 29.9 pg (28.0-32.0); Mean Corpuscular Hgb Conc. 32.5 g/dL (32.0-36.0); Monocytes # (auto) 0.4 10 ^3/uL (0-1.3); Monocytes % (auto) 7.4 % (0.0-12.0); Neutrophils # (auto) 3.5 10 ^3/uL (1.6-8.6); Neutrophils % (auto) 59.8 % (37.0-80.0); Nucleated Red Blood Cells % 0.1 %; Platelet Count (auto) 169 10^3/uL (140-450); Red Blood Cells 3.97 10^6/uL (4.0-5.20); Red Cell Distribution Width 14.7 % (11.8-14.3); White Blood Cell 5.8 10^3/uL (4.4-10.8)
[2024-11-03 07:55] LABS: Alanine Aminotransferase 18 U/L (7-40); Albumin 3.4 g/dL (3.2-4.8); Alkaline Phosphatase 60 U/L (46-116); Anion Gap 10 (5-15); Aspartate Aminotransferase 16 U/L (13-40); Calcium 8.9 mg/dL (8.7-10.4); Carbon Dioxide 21 mmol/L (20-31); Glucose 89 mg/dL (74-106); Potassium 3.5 mmol/L (3.5-5.1); Sodium 143 mmol/L (136-145)
[2024-11-03 07:56] LABS: Bilirubin, Total 0.4 mg/dL (0.2-1.0)
[2024-11-03 08:03] LABS: BUN/Creatinine Ratio 10.2 (10.0-20.0); Blood Urea Nitrogen < 5 mg/dL (9-23); Chloride 112 mmol/L (98-107); Total Protein 5.1 g/dL (5.7-8.2)
[2024-11-03 08:30] VITALS: BP 146/86; PULSE 67; RESP 16; TEMP 98.1; O2SAT 97
[2024-11-03 12:30] VITALS: BP 155/86; PULSE 56; RESP 16; TEMP 98.1; O2SAT 94
[2024-11-03 16:30] VITALS: BP 158/73; PULSE 60; RESP 14; TEMP 98.3; O2SAT 96
--- NOTE | 2024-11-03 17:33 | DVHPN2 ---
Subjective in bed having some epigastric pain Reviewed: Care Plan, H&P, Labs, Medications, Previous Orders, Radiology Changes from previous H/P or p: No Changes Eyes: No Pain, No Vision change, No Conjunctivae inflammation, No Eyelid inflammation, No Other, No Redness Cardiovascular: No Chest Pain, No Palpitations, No Orthopnea, No Paroxysmal Noc. Dyspnea, No Edema, No Lt Headedness, No Other Respiratory: No Cough, No Dry, No Shortness of breath, No SOB with excertion, No Wheezing, No Hemoptysis, No Pleuritic Pain, No Sputum, No Other Gastrointestinal: Nausea, Vomiting, Abdominal Pain, Diarrhea; No Constipation, No Melena, No Hematochezia, No Other Genitourinary: No Dysuria, No Frequency, No Incontinence, No Hematuria, No Retention, No Other Musculoskeletal: No other, No neck pain, No shoulder pain, No arm pain, No back pain, No hand pain, No leg pain, No foot pain Skin: No Rash, No Lesions, No Jaundice, No Bruising, No Other Objective Vitals Vital Signs Date Time Temp Pulse Resp B/P (MAP) Pulse Ox O2 Delivery O2 Flow Rate FiO2 11/03/24 16:30 98.3 60 14 158/73 (101) 96 98.3 11/03/24 08:00 Room Air* 0 21 Intake/Output Intake and Output 11/03/24 07:00 Intake Total 650 ml Balance 650 ml Intake Oral 0 ml IV Total 650 ml # Voids 1 General Appearance: Alert, Cooperative, No acute distress HEENT: Atraumatic, PERRLA, EOMI, Mucous membr. moist/pink Neck: Supple Lungs: Clear to auscultation Cardiovascular: Regular rate, Normal S1, Normal S2, No murmurs, Gallops, Rubs Abdomen: Normal bowel sounds, Soft, No tenderness Neuro: Cranial nerves 3-12 NL Psych/Mental Status: Mental status NL Medications Current Medications Medications Dose Ordered Sig/Shay Route Start Time Stop Time Status Last Admin Dose Admin Pantoprazole Sodium 40 mg DAILY IV 10/31/24 10:00 11/03/24 09:14 40 MG Ondansetron HCl 4 mg Q4HP PRN IV 10/30/24 16:45 10/31/24 14:34 4 MG Acetaminophen 650 mg Q6HP PRN PO 10/30/24 16:45 11/02/24 16:49 650 MG Acetaminophen/ Hydrocodone Bitart 1 tab Q6HPRN PRN PO 10/30/24 22:30 11/03/24 12:32 1 TAB Zolpidem Tartrate 5 mg HSPRN PRN PO 10/30/24 23:45 10/30/24 23:55 5 MG Metronidazole 100 ml @ 100 mls/hr Q8HR IV 10/31/24 14:00 11/03/24 13:41 100 MLS/HR Metoprolol Tartrate 50 mg BID PO 10/31/24 22:00 11/03/24 09:15 50 MG Lactated Ringer's 1,000 ml @ 125 mls/hr Q8H IV 10/31/24 14:15 11/03/24 14:15 125 MLS/HR Alprazolam 1 mg Q8HPRN PRN PO 10/31/24 14:15 11/02/24 21:09 1 MG Gabapentin 600 mg TID PO 11/01/24 22:00 11/03/24 13:41 600 MG Hydralazine HCl 10 mg Q6HP PRN IV 11/01/24 15:00 Ceftriaxone Sodium 50 ml @ 100 mls/hr DAILY@09 IV 11/04/24 09:00 Laboratory Results Laboratory Tests 11/03/24 06:48 Chemistry Test 11/03/24 06:48 Albumin 3.4 g/dL (3.2-4.8) Calcium Level 8.9 mg/dL (8.7-10.4) Total Protein 5.1 g/dL (5.7-8.2) L LFT Test 11/03/24 06:48 Alanine Aminotransferase (ALT) 18 U/L (7-40) Alkaline Phosphatase 60 U/L (46-116) Aspartate Amino Transferase (AST) 16 U/L (13-40) Total Bilirubin 0.4 mg/dL (0.2-1.0) Urinalysis Test 10/30/24 08:10 Urine Color Light-yellow (Yellow) Urine Clarity Clear (Clear) Urine pH 8.0 (5.0-9.0) Urine Specific [place] 1.016 (1.001-1.035) Urine Protein Negative (Negative) Urine Ketones Negative (Negative) Urine Blood Negative /uL (Negative) Urine Nitrite Negative (Negative) Urine Bilirubin Negative (Negative) Urine Urobilinogen Normal mg/dL (Negative) Urine Leukocyte Esterase Negative /uL (Negative) Urine RBC None seen /hpf (0 - 4) Urine Microscopic WBC 1 /HPF (0-5) Urine Squamous Epithelial Cells None seen /hpf (<5) Urine Amorphous Crystals Few /hpf (None Seen) Urine Bacteria None seen /hpf (None Seen) Urine Yeast (Budding) Few /hpf (None Seen) Urine Glucose Normal mg/dL (Normal) Assessment/Plan Assessment/Plan Acute diverticulitis Dysphagia History of gastritis Hypertension Hypercholesterolemia History of CVA Anxiety Neuropathy Continuing current management. Continuing with IV antibiotic Rocephin and Flagyl. GI recs for esophagogram which is pending Continuing hypertensive medication. Continuing with pain medication And we will restart her home medication at home which is gabapentin 600 mg p.o. Q 8H Plan discussed with: Patient Date of Service: Nov 03, 2024 Billing Provider: NIA KHALIL MD Common Visit Codes: [id number] INP/OBS CARE(HIGH) NIA KHALIL MD Nov 03, 2024 17:33
--- NOTE | 2024-11-03 18:43 | DVHPN2 ---
Progress Note Date Seen: Nov 03, 2024 Resident Creating Document: CHIDI RODRIGUEZ RESIDENT Medical Necessity Reason Pt with a Central, PICC or Fol: No Subjective Review of Systems patient continue to have epigastric pain no dysphagia no N/V/Diarrhea Objective vital signs Vital Sign Date Time Temp Pulse Resp B/P (MAP) Pulse Ox O2 Delivery O2 Flow Rate FiO2 11/03/24 16:30 98.3 60 14 158/73 (101) 96 98.3 11/03/24 08:00 Room Air* 0 21 Total Intake and Output 11/02/24 11/02/24 11/03/24 15:00 23:00 07:00 Intake Total 250 ml 300 ml 100 ml Balance 250 ml 300 ml 100 ml medications Current Medications Medications Dose Ordered Sig/Shay Route Start Time Stop Time Status Last Admin Dose Admin Pantoprazole Sodium 40 mg DAILY IV 10/31/24 10:00 11/03/24 09:14 40 MG Ondansetron HCl 4 mg Q4HP PRN IV 10/30/24 16:45 10/31/24 14:34 4 MG Acetaminophen 650 mg Q6HP PRN PO 10/30/24 16:45 11/03/24 18:15 650 MG Acetaminophen/ Hydrocodone Bitart 1 tab Q6HPRN PRN PO 10/30/24 22:30 11/03/24 12:32 1 TAB Zolpidem Tartrate 5 mg HSPRN PRN PO 10/30/24 23:45 10/30/24 23:55 5 MG Metronidazole 100 ml @ 100 mls/hr Q8HR IV 10/31/24 14:00 11/03/24 13:41 100 MLS/HR Metoprolol Tartrate 50 mg BID PO 10/31/24 22:00 11/03/24 09:15 50 MG Lactated Ringer's 1,000 ml @ 125 mls/hr Q8H IV 10/31/24 14:15 11/03/24 14:15 125 MLS/HR Alprazolam 1 mg Q8HPRN PRN PO 10/31/24 14:15 11/02/24 21:09 1 MG Gabapentin 600 mg TID PO 11/01/24 22:00 11/03/24 13:41 600 MG Hydralazine HCl 10 mg Q6HP PRN IV 11/01/24 15:00 Ceftriaxone Sodium 50 ml @ 100 mls/hr DAILY@09 IV 11/04/24 09:00 Examination: GENERAL:Normal, HEENT:Normal, NECK:Normal, LUNGS:Normal, CVS:Normal, ABDOMEN:Normal, MSK:Normal, SKIN:Normal laboratory and microbiology Laboratory Tests 11/03/24 06:48 Test 11/03/24 06:48 Range/Units Serum Glucose 89 74-106 mg/dL Problem List/Assessment/Plan Problem List/Assessment/Plan Acute epigastric abdominal pain acute sigmoid diverticultis history of CVA ?Acute gastritis Plan/Recommendation Dr Galeas Recent EGD (06/04/24) 1. Mild gastritis with some pre-pyloric antral gastric erosions which were healing Hold off on EGD given the fact that the patient had recent EGD and is unlikely to have any significant new findings that can explain dysphagia. Differential diagnosis does include hiatal hernia, erosive esophagitis, musculoskeletal or neurologic causes, dry mouth, candidal esophagitis, but doubt any malignancy or stricture. Pending esophagus with esophagram Anti-reflux precautions Continue with proton pump inhibitor Consider EGD pending esophagram Plan discussed with: Patient, Other (RN) CHIDI RODRIGUEZ RESIDENT Nov 03, 2024 18:43
[2024-11-03] MEDS: SUCRALFATE 1 GM/10 ML ORAL SUSP PO SCH (20:42)
[2024-11-03 21:00] VITALS: BP 153/74; PULSE 60; RESP 16; TEMP 97.9; O2SAT 93
[2024-11-04] VITALS (8 sets, daily range): BP systolic 130–170; BP diastolic 54–81; PULSE 57–77; RESP 15–20; TEMP 97.7–98.6; O2SAT 93–96
[2024-11-04 07:44] LABS: Basophils # (auto) 0 10 ^3/uL (0-0.2); Basophils % (auto) 0.4 % (0.0-2.0); Eosinophils # (auto) 0.1 10 ^3/uL (0-0.8); Eosinophils % (auto) 1.3 % (0.0-7.0); Hemoglobin 12.1 g/dL (12.2-16.2); Lymphocytes # (auto) 1.8 10 ^3/uL (0.4-5.4); Lymphocytes % (auto) 28.9 % (10.0-50.0); Mean Corpuscular Hemoglobin 30.1 pg (28.0-32.0); Mean Corpuscular Hgb Conc. 32.6 g/dL (32.0-36.0); Mean Corpuscular Volume 92.3 fL (80.0-100.0); Monocytes # (auto) 0.5 10 ^3/uL (0-1.3); Monocytes % (auto) 8.3 % (0.0-12.0); Neutrophils # (auto) 3.7 10 ^3/uL (1.6-8.6); Neutrophils % (auto) 61.1 % (37.0-80.0); Nucleated Red Blood Cells % 0.1 %; Platelet Count (auto) 188 10^3/uL (140-450); Red Blood Cells 4.01 10^6/uL (4.0-5.20); Red Cell Distribution Width 14.8 % (11.8-14.3); White Blood Cell 6.1 10^3/uL (4.4-10.8)
[2024-11-04] MEDS: hydrALAZINE HCL 20 MG/ML VL IV PRN (08:02)
[2024-11-04 08:12] LABS: Anion Gap 11 (5-15); Calcium 8.9 mg/dL (8.7-10.4); Carbon Dioxide 21 mmol/L (20-31); Sodium 142 mmol/L (136-145)
[2024-11-04 08:13] LABS: Alkaline Phosphatase 63 U/L (46-116)
[2024-11-04 08:15] LABS: Glucose 86 mg/dL (74-106)
[2024-11-04 08:16] LABS: Alanine Aminotransferase 26 U/L (7-40); Albumin 3.5 g/dL (3.2-4.8)
[2024-11-04 08:17] LABS: Aspartate Aminotransferase 18 U/L (13-40); Bilirubin, Total 0.5 mg/dL (0.2-1.0)
[2024-11-04 08:18] LABS: Blood Urea Nitrogen < 5 mg/dL (9-23); Chloride 110 mmol/L (98-107); Potassium 3.4 mmol/L (3.5-5.1); Total Protein 5.3 g/dL (5.7-8.2)
[2024-11-04] MEDS: cefTRIAXone 1GM/50ML D5W 50 ML IV SCH (08:52)
[2024-11-04] MEDS: BARIUM SULFATE 98% 340 GM PWDR ONE (13:23)
[2024-11-04] MEDS: READI-CAT 2 (BARIUM SULF)(VANILLA SMOOTHIE) 450ML ONE (13:24)
--- NOTE | 2024-11-04 14:23 | DVH ---
XY ESOPHAGUS BARIUM SWALLOW, HISTORY: DYSPHAGIA COMPARISON: None PROCEDURE: A marketing instructor radiograph was obtained prior to the procedure. Barium were administered orally, a nd radiographs were obtained under intermittent fluoroscopic observation. Total fluoroscopic time was 0.3 minutes. DAP 149 FINDINGS: The esophagus was normal in caliber with no stricture, filling defect. Abnormal esophageal contractio n were visualized with delayed passage of contrast into the stomach. Mild esophageal reflux was visualized. IMPRESSION: Abnormal esophageal contraction were visualized with delayed passage of contrast into the stomach.
[2024-11-04] MEDS: LIOTHYRONINE 5 MCG PO SCH (15:34)
--- NOTE | 2024-11-04 16:56 | DVHPN2 ---
Progress Note Date Seen: Nov 04, 2024 Resident Creating Document: CHIDI RODRIGUEZ RESIDENT Medical Necessity Reason Pt with a Central, PICC or Fol: No Subjective Review of Systems patient continue to have epigastric pain no dysphagia no N/V/Diarrhea No new complaint Objective vital signs Vital Sign Date Time Temp Pulse Resp B/P (MAP) Pulse Ox O2 Delivery O2 Flow Rate FiO2 11/04/24 12:55 98.6 62 17 136/61 (86) 96 98.6 11/04/24 08:00 Room Air* 0 21 Total Intake and Output 11/03/24 11/03/24 11/04/24 14:59 22:59 06:59 Intake Total 650 ml 1620 ml 750 ml Balance 650 ml 1620 ml 750 ml medications Current Medications Medications Dose Ordered Sig/Shay Route Start Time Stop Time Status Last Admin Dose Admin Pantoprazole Sodium 40 mg DAILY IV 10/31/24 10:00 11/04/24 08:51 40 MG Ondansetron HCl 4 mg Q4HP PRN IV 10/30/24 16:45 10/31/24 14:34 4 MG Acetaminophen 650 mg Q6HP PRN PO 10/30/24 16:45 11/03/24 18:15 650 MG Acetaminophen/ Hydrocodone Bitart 1 tab Q6HPRN PRN PO 10/30/24 22:30 11/04/24 04:47 1 TAB Zolpidem Tartrate 5 mg HSPRN PRN PO 10/30/24 23:45 10/30/24 23:55 5 MG Metronidazole 100 ml @ 100 mls/hr Q8HR IV 10/31/24 14:00 11/04/24 14:28 100 MLS/HR Metoprolol Tartrate 50 mg BID PO 10/31/24 22:00 11/04/24 08:52 50 MG Lactated Ringer's 1,000 ml @ 125 mls/hr Q8H IV 10/31/24 14:15 11/03/24 21:35 125 MLS/HR Alprazolam 1 mg Q8HPRN PRN PO 10/31/24 14:15 11/03/24 21:35 1 MG Gabapentin 600 mg TID PO 11/01/24 22:00 11/04/24 15:33 600 MG Hydralazine HCl 10 mg Q6HP PRN IV 11/01/24 15:00 11/04/24 08:02 10 MG Ceftriaxone Sodium 50 ml @ 100 mls/hr DAILY@09 IV 11/04/24 09:00 11/04/24 08:52 100 MLS/HR Sucralfate 1 gm QID@0600,1130,1700,2200 PO 11/03/24 22:00 11/04/24 04:49 1 GM Patient Own Medication 1 BID@0700,1500 PO 11/04/24 15:00 11/04/24 15:34 1 Examination General Appearance: Cooperative. Well developed. Well nourished. NAD Head Exam: Normal inspection Neck Exam: Normal inspection. Non-tender. Normal alignment Pulmonary/Respiratory: Chest non-tender. Clear bilateral breath sounds Cardiovascular/Chest: Regular rate and rhythm. No murmurs. No JVD. Peripheral Pulses: 2+ Radial (R). 2+ Radial (L). 2+ Pedal (R). 2+ Pedal (L) Abdominal Exam: Normal bowel sounds. Soft. Nontender. No hepatospenomegaly. No masses Ankle Exam: Negative ankle edema Lower extremities: Negative lower extremity edema Neuro/Mental Status: A&O x4. Coherent Thoughts/Psych: Normal thought pattern. Appropriate mood and affect. Good judgement and insight Appearance: In no acute distress Skin Exam: Normal inspection. Normal color. Warm. Dry laboratory and microbiology Laboratory Tests 11/04/24 06:17 Test 11/04/24 06:17 Range/Units Serum Glucose 86 74-106 mg/dL Problem List/Assessment/Plan Problem List/Assessment/Plan Acute epigastric abdominal pain Esophageal dysmotility acute sigmoid diverticultis history of CVA Acute gastritis Plan/Recommendation Dr Galeas Recent EGD (06/04/24) 1. Mild gastritis with some pre-pyloric antral gastric erosions which were healing -recommended small frequent meals with warm liquid. Continue Reglan 5 mg IV Q eight, can transition to p.o. b.i.d. once patient discharge. No need for repeat EGD. Follow with outpatient GI. Barium esophagogram on 11/04/2024:Abnormal esophageal contraction were visualized with delayed passage of contrast into the Anti-reflux precautions Continue with proton pump inhibitor Rest of the management as per primary team Follow up in outpatient setting GI. Plan discussed with: Patient, Other (RN) My Orders My Orders Orders - CHIDI RODRIGUEZ Procedure Category Date Status Time Sucralfate Susp PHA 11/03/24 In Process (Carafate Susp) 22:00 CHIDI RODRIGUEZ Nov 04, 2024 16:56
--- NOTE | 2024-11-04 18:27 | DVHPN2 ---
Subjective Seen and examined at bedside, barium swallow done. Possible DC Tomorrow if tolerates soft diet. Reviewed: Care Plan, H&P, Labs, Medications, Previous Orders, Radiology Changes from previous H/P or p: No Changes Eyes: No Pain, No Vision change, No Conjunctivae inflammation, No Eyelid inflammation, No Other, No Redness Cardiovascular: No Chest Pain, No Palpitations, No Orthopnea, No Paroxysmal Noc. Dyspnea, No Edema, No Lt Headedness, No Other Respiratory: No Cough, No Dry, No Shortness of breath, No SOB with excertion, No Wheezing, No Hemoptysis, No Pleuritic Pain, No Sputum, No Other Gastrointestinal: No Nausea, No Vomiting, No Abdominal Pain, No Diarrhea, No Constipation, No Melena, No Hematochezia, No Other Genitourinary: No Dysuria, No Frequency, No Incontinence, No Hematuria, No Retention, No Other Musculoskeletal: No other, No neck pain, No shoulder pain, No arm pain, No back pain, No hand pain, No leg pain, No foot pain Skin: No Rash, No Lesions, No Jaundice, No Bruising, No Other Objective Vitals Vital Signs Date Time Temp Pulse Resp B/P (MAP) Pulse Ox O2 Delivery O2 Flow Rate FiO2 11/04/24 17:00 97.7 66 19 161/81 (107) 95 97.7 11/04/24 08:00 Room Air* 0 21 Intake/Output Intake and Output 11/04/24 07:00 Intake Total 3020 ml Balance 3020 ml Intake Oral 650 ml IV Total 2370 ml # Voids 1 # Bowel Movements 1 General Appearance: Alert, Cooperative, No acute distress HEENT: Atraumatic, PERRLA, EOMI, Mucous membr. moist/pink Neck: Supple Lungs: Clear to auscultation Cardiovascular: Regular rate, Normal S1, Normal S2, No murmurs, Gallops, Rubs Abdomen: Normal bowel sounds, Soft, No tenderness Neuro: Cranial nerves 3-12 NL Psych/Mental Status: Mental status NL Medications Current Medications Medications Dose Ordered Sig/Shay Route Start Time Stop Time Status Last Admin Dose Admin Pantoprazole Sodium 40 mg DAILY IV 10/31/24 10:00 11/04/24 08:51 40 MG Ondansetron HCl 4 mg Q4HP PRN IV 10/30/24 16:45 10/31/24 14:34 4 MG Acetaminophen 650 mg Q6HP PRN PO 10/30/24 16:45 11/04/24 17:21 650 MG Acetaminophen/ Hydrocodone Bitart 1 tab Q6HPRN PRN PO 10/30/24 22:30 11/04/24 04:47 1 TAB Zolpidem Tartrate 5 mg HSPRN PRN PO 10/30/24 23:45 10/30/24 23:55 5 MG Metronidazole 100 ml @ 100 mls/hr Q8HR IV 10/31/24 14:00 11/04/24 14:28 100 MLS/HR Metoprolol Tartrate 50 mg BID PO 10/31/24 22:00 11/04/24 08:52 50 MG Lactated Ringer's 1,000 ml @ 125 mls/hr Q8H IV 10/31/24 14:15 11/03/24 21:35 125 MLS/HR Alprazolam 1 mg Q8HPRN PRN PO 10/31/24 14:15 11/03/24 21:35 1 MG Gabapentin 600 mg TID PO 11/01/24 22:00 11/04/24 15:33 600 MG Hydralazine HCl 10 mg Q6HP PRN IV 11/01/24 15:00 11/04/24 08:02 10 MG Ceftriaxone Sodium 50 ml @ 100 mls/hr DAILY@09 IV 11/04/24 09:00 11/04/24 08:52 100 MLS/HR Sucralfate 1 gm QID@0600,1130,1700,2200 PO 11/03/24 22:00 11/04/24 17:07 1 GM Patient Own Medication 1 BID@0700,1500 PO 11/04/24 15:00 11/04/24 15:34 1 Laboratory Results Laboratory Tests 11/04/24 06:17 Chemistry Test 11/04/24 06:17 Albumin 3.5 g/dL (3.2-4.8) Calcium Level 8.9 mg/dL (8.7-10.4) Total Protein 5.3 g/dL (5.7-8.2) L LFT Test 11/04/24 06:17 Alanine Aminotransferase (ALT) 26 U/L (7-40) Alkaline Phosphatase 63 U/L (46-116) Aspartate Amino Transferase (AST) 18 U/L (13-40) Total Bilirubin 0.5 mg/dL (0.2-1.0) Urinalysis Test 10/30/24 08:10 Urine Color Light-yellow (Yellow) Urine Clarity Clear (Clear) Urine pH 8.0 (5.0-9.0) Urine Specific [place] 1.016 (1.001-1.035) Urine Protein Negative (Negative) Urine Ketones Negative (Negative) Urine Blood Negative /uL (Negative) Urine Nitrite Negative (Negative) Urine Bilirubin Negative (Negative) Urine Urobilinogen Normal mg/dL (Negative) Urine Leukocyte Esterase Negative /uL (Negative) Urine RBC None seen /hpf (0 - 4) Urine Microscopic WBC 1 /HPF (0-5) Urine Squamous Epithelial Cells None seen /hpf (<5) Urine Amorphous Crystals Few /hpf (None Seen) Urine Bacteria None seen /hpf (None Seen) Urine Yeast (Budding) Few /hpf (None Seen) Urine Glucose Normal mg/dL (Normal) Assessment/Plan Assessment/Plan Acute diverticulitis- Abx Dysphagia- Barium Done, Small meals History of gastritis- Protonix Hypertension Hypercholesterolemia History of CVA Anxiety Neuropathy Plan discussed with: Patient My Orders Orders - ROBERT PRICE MD Procedure Category Date Status Time Patients Own PHA 11/04/24 In Process Medication 15:00 Clear Liq Diet DIET 11/04/24 Transmitted Dinner * Swallow Request ST 11/04/24 Transmitted 15:54 * Gi [facility] [employer] CONS 11/04/24 Transmitted 15:54 Date of Service: Nov 04, 2024 Billing Provider: ROBERT PRICE MD Common Visit Codes: [id number] INP/OBS CARE(HIGH) ROBERT PRICE MD Nov 04, 2024 18:27
[2024-11-05 01:00] VITALS: BP 152/83; PULSE 69; RESP 19; TEMP 98.7; O2SAT 97
[2024-11-05 05:00] VITALS: BP 169/86; PULSE 65; RESP 19; TEMP 97.6; O2SAT 96
[2024-11-05 07:02] LABS: Basophils # (auto) 0 10 ^3/uL (0-0.2); Basophils % (auto) 0.4 % (0.0-2.0); Eosinophils # (auto) 0.1 10 ^3/uL (0-0.8); Eosinophils % (auto) 1.6 % (0.0-7.0); Hematocrit 37.5 % (36.0-46.0); Hemoglobin 12.3 g/dL (12.2-16.2); Lymphocytes # (auto) 1.7 10 ^3/uL (0.4-5.4); Mean Corpuscular Hemoglobin 30.2 pg (28.0-32.0); Mean Corpuscular Hgb Conc. 32.9 g/dL (32.0-36.0); Mean Corpuscular Volume 91.9 fL (80.0-100.0); Monocytes # (auto) 0.6 10 ^3/uL (0-1.3); Monocytes % (auto) 9.7 % (0.0-12.0); Neutrophils # (auto) 3.6 10 ^3/uL (1.6-8.6); Neutrophils % (auto) 60.3 % (37.0-80.0); Nucleated Red Blood Cells % 0.1 %; Platelet Count (auto) 194 10^3/uL (140-450); Red Blood Cells 4.08 10^6/uL (4.0-5.20); Red Cell Distribution Width 14.7 % (11.8-14.3); White Blood Cell 5.9 10^3/uL (4.4-10.8)
[2024-11-05 07:13] LABS: Alanine Aminotransferase 16 U/L (7-40); Albumin 3.6 g/dL (3.2-4.8); Alkaline Phosphatase 64 U/L (46-116); Anion Gap 12 (5-15); Aspartate Aminotransferase 22 U/L (13-40); Carbon Dioxide 20 mmol/L (20-31); Glucose 93 mg/dL (74-106); Sodium 144 mmol/L (136-145)
[2024-11-05 07:14] LABS: Bilirubin, Total 0.6 mg/dL (0.2-1.0)
[2024-11-05 07:18] LABS: BUN/Creatinine Ratio 10.9 (10.0-20.0); Blood Urea Nitrogen < 5 mg/dL (9-23); Chloride 112 mmol/L (98-107); Potassium 3.3 mmol/L (3.5-5.1); Total Protein 5.4 g/dL (5.7-8.2)
[2024-11-05] MEDS: POTASSIUM EFFERVESENT TAB 25 MEQ PO ONE (08:46)
[2024-11-05 09:00] VITALS: BP 160/81; PULSE 68; RESP 16; TEMP 98.5; O2SAT 95
[2024-11-05 13:00] VITALS: BP 137/74; PULSE 66; RESP 18; TEMP 98.1; O2SAT 95
[2024-11-05] MEDS ORDERED: METR-344 PO (14:29)
[2024-11-05] MEDS ORDERED: PANT40TA2 PO (14:29)
[2024-11-05] MEDS ORDERED: LEVO500T91 PO (14:29)
[2024-11-05] MEDS ORDERED: SUCR1SUS26 PO (14:29)
--- NOTE | 2024-11-05 14:34 | DVHDS2 ---
Discharge Summary Date of Admission Oct 30, 2024 at 16:36 Date of Discharge: Nov 05, 2024 Admitting Diagnosis Abdominal Pain Labs/Diagnostic Data: Laboratory Results Test 11/05/24 06:17 10/30/24 09:08 10/30/24 08:10 10/30/24 00:00 White Blood Count 5.9 10^3/uL (4.4-10.8) Red Blood Count 4.08 10^6/uL (4.0-5.20) Hemoglobin 12.3 g/dL (12.2-16.2) Hematocrit 37.5 % (36.0-46.0) Mean Corpuscular Volume 91.9 fL (80.0-100.0) Mean Corpuscular Hemoglobin 30.2 pg (28.0-32.0) Mean Corpuscular Hemoglobin Concent 32.9 g/dL (32.0-36.0) Red Cell Distribution Width 14.7 % (11.8-14.3) Platelet Count 194 10^3/uL (140-450) Mean Platelet Volume 9.3 fL (6.9-10.8) Neutrophils (%) (Auto) 60.3 % (37.0-80.0) Lymphocytes (%) (Auto) 28.0 % (10.0-50.0) Monocytes (%) (Auto) 9.7 % (0.0-12.0) Eosinophils (%) (Auto) 1.6 % (0.0-7.0) Basophils (%) (Auto) 0.4 % (0.0-2.0) Neutrophils # (Auto) 3.6 10 ^3/uL (1.6-8.6) Lymphocytes # (Auto) 1.7 10 ^3/uL (0.4-5.4) Monocytes # (Auto) 0.6 10 ^3/uL (0-1.3) Eosinophils # (Auto) 0.1 10 ^3/uL (0-0.8) Basophils # (Auto) 0 10 ^3/uL (0-0.2) Nucleated Red Blood Cells 0.1 % Sodium Level 144 mmol/L (136-145) Potassium Level 3.3 mmol/L (3.5-5.1) Chloride Level 112 mmol/L (98-107) Carbon Dioxide Level 20 mmol/L (20-31) Anion Gap 12 (5-15) Blood Urea Nitrogen < 5 mg/dL (9-23) Creatinine 0.46 mg/dL (0.550-1.02) Glomerular Filtration Rate Calc 100 mL/min (>90) BUN/Creatinine Ratio 10.9 (10.0-20.0) Serum Glucose 93 mg/dL (74-106) Calcium Level 9.0 mg/dL (8.7-10.4) Total Bilirubin 0.6 mg/dL (0.2-1.0) Aspartate Amino Transferase (AST) 22 U/L (13-40) Alanine Aminotransferase (ALT) 16 U/L (7-40) Alkaline Phosphatase 64 U/L (46-116) Total Protein 5.4 g/dL (5.7-8.2) Albumin 3.6 g/dL (3.2-4.8) Troponin I High Sensitivity 7 ng/L (</=34) Urine Color Light-yellow (Yellow) Urine Clarity Clear (Clear) Urine pH 8.0 (5.0-9.0) Urine Specific [place] 1.016 (1.001-1.035) Urine Protein Negative (Negative) Urine Ketones Negative (Negative) Urine Blood Negative /uL (Negative) Urine Nitrite Negative (Negative) Urine Bilirubin Negative (Negative) Urine Urobilinogen Normal mg/dL (Negative) Urine Leukocyte Esterase Negative /uL (Negative) Urine RBC None seen /hpf (0 - 4) Urine Microscopic WBC 1 /HPF (0-5) Urine Squamous Epithelial Cells None seen /hpf (<5) Urine Amorphous Crystals Few /hpf (None Seen) Urine Bacteria None seen /hpf (None Seen) Urine Yeast (Budding) Few /hpf (None Seen) Urine Glucose Normal mg/dL (Normal) Influenza Type A Antigen Negative (Negative) Influenza Type B Antigen Negative (Negative) SARS-CoV-2 Antigen (Rapid) Negative (NEGATIVE) Other Laboratory Tests 11/05/24 06:17 Brief Hx & Hospital Course: The patient is a 73-year-old female with a past medical history significant for hyperlipidemia, hypertension, history of CVA, history of endoscopy with Dr. Galeas five months ago showing gastritis, admitted with abdominal pain and found to have acute uncomplicated diverticulitis of the colon, noted to have issues with swallowing. Patient states that since the endoscopy five months ago she has had difficulty swallowing. Patient complains more of a dry mouth then dysphagia. She denies hematemesis, hemoptysis or through impaction. She has difficulty with liquids as well as solid foods. GI consultation obtained given her symptoms of dysphagia. Patient underwent a Barium swallow, see report below. Patient advised for small meals and has to see GI for repeat EGD and Colonoscopy. Continue Levaquin and Flagyl at home. Operations or Procedures XY ESOPHAGUS BARIUM SWALLOW, HISTORY: DYSPHAGIA COMPARISON: None PROCEDURE: A gis administrator radiograph was obtained prior to the procedure. Barium were administered orally, and radiographs were obtained under intermittent fluoroscopic observation. Total fluoroscopic time was 0.3 minutes. DAP 149 FINDINGS: The esophagus was normal in caliber with no stricture, filling defect. Abnormal esophageal contraction were visualized with delayed passage of contrast into the stomach. Mild esophageal reflux was visualized. IMPRESSION: Abnormal esophageal contraction were visualized with delayed passage of contrast into the stomach. Condition at Discharge: Poor Final Diagnosis/Problems List Acute Diverticulitis- Levaquin, Flagyl Dysphagia- s/p Barium Swallow. Cont Protonix Gastritis- Protonix Discharge Disposition: Home Discharge Instruct/Medications Activity: Light activity Follow Up/Referral: PCP in 1 week [facility] in 1 week Medications: Levaquin and Flagyl Discharge Statement: "Patient was advised to return to the ER or call 911 if any headaches, dizziness, shortness of breath, chest pain, abdominal pain, bleeding, fevers, or worsening of medical condition. Patient was counseled about treatment plan, medications, possible side effects, patientverbalized understanding. All questions were answered to the best of my ability. This discharge took greater then 30 minutes in planning, reviewing documentation, counseling the patient, and discussing with other team members." ASSESSMENT ASSESSMENT Assessment Date of Service: Nov 05, 2024 Billing Provider: ROBERT PRICE MD Common Visit Codes: 23335-BFK/OBS DISCH DAY >30min ROBERT PRICE MD Nov 05, 2024 14:34
[2024-11-05] MEDS: METOCLOPRAMIDE HCL 5MG/ml INJ 2ml VIAL IV SCH (14:49)
--- NOTE | 2024-11-05 17:51 | DVHPN2 ---
Progress Note Date Seen: Nov 05, 2024 Resident Creating Document: CHIDI RODRIGUEZ RESIDENT Medical Necessity Reason Pt with a Central, PICC or Fol: No Subjective Patient reports: No new complaints, Feels better Changes from previous H/P or p: No Changes Objective vital signs Vital Sign Date Time Temp Pulse Resp B/P (MAP) Pulse Ox O2 Delivery O2 Flow Rate FiO2 11/05/24 13:00 98.1 66 18 137/74 (95) 95 98.1 11/05/24 08:00 Room Air* 0 21 Total Intake and Output 11/04/24 11/04/24 11/05/24 15:00 23:00 07:00 Intake Total 470 ml 520 ml 0 ml Balance 470 ml 520 ml 0 ml medications Current Medications Medications Dose Ordered Sig/Shay Route Start Time Stop Time Status Last Admin Dose Admin Pantoprazole Sodium 40 mg DAILY IV 10/31/24 10:00 11/05/24 08:46 40 MG Ondansetron HCl 4 mg Q4HP PRN IV 10/30/24 16:45 10/31/24 14:34 4 MG Acetaminophen 650 mg Q6HP PRN PO 10/30/24 16:45 11/04/24 17:21 650 MG Acetaminophen/ Hydrocodone Bitart 1 tab Q6HPRN PRN PO 10/30/24 22:30 11/05/24 13:01 1 TAB Zolpidem Tartrate 5 mg HSPRN PRN PO 10/30/24 23:45 10/30/24 23:55 5 MG Metronidazole 100 ml @ 100 mls/hr Q8HR IV 10/31/24 14:00 11/05/24 14:49 100 MLS/HR Metoprolol Tartrate 50 mg BID PO 10/31/24 22:00 11/05/24 08:47 50 MG Alprazolam 1 mg Q8HPRN PRN PO 10/31/24 14:15 11/04/24 21:47 1 MG Gabapentin 600 mg TID PO 11/01/24 22:00 11/05/24 14:51 600 MG Hydralazine HCl 10 mg Q6HP PRN IV 11/01/24 15:00 11/04/24 08:02 10 MG Ceftriaxone Sodium 50 ml @ 100 mls/hr DAILY@09 IV 11/04/24 09:00 11/05/24 08:46 100 MLS/HR Sucralfate 1 gm QID@0600,1130,1700,2200 PO 11/03/24 22:00 11/05/24 11:30 1 GM Patient Own Medication 1 BID@0700,1500 PO 11/04/24 15:00 11/05/24 14:51 1 Metoclopramide HCl 5 mg Q8HR IV 11/05/24 14:00 11/05/24 14:49 5 MG Examination General Appearance: Cooperative. Well developed. Well nourished. NAD Head Exam: Normal inspection Neck Exam: Normal inspection. Non-tender. Normal alignment Pulmonary/Respiratory: Chest non-tender. Clear bilateral breath sounds Cardiovascular/Chest: Regular rate and rhythm. No murmurs. No JVD. Peripheral Pulses: 2+ Radial (R). 2+ Radial (L). 2+ Pedal (R). 2+ Pedal (L) Abdominal Exam: Normal bowel sounds. Soft. Nontender. No hepatospenomegaly. No masses Ankle Exam: Negative ankle edema Lower extremities: Negative lower extremity edema Neuro/Mental Status: A&O x4. Coherent Thoughts/Psych: Normal thought pattern. Appropriate mood and affect. Good judgement and insight Appearance: In no acute distress Skin Exam: Normal inspection. Normal color. Warm. Dry laboratory and microbiology Laboratory Tests 11/05/24 06:17 Test 11/05/24 06:17 Range/Units Serum Glucose 93 74-106 mg/dL Problem List/Assessment/Plan Problem List/Assessment/Plan Acute epigastric abdominal pain Esophageal dysmotility acute sigmoid diverticultis history of CVA Acute gastritis Plan/Recommendation Dr Galeas Recent EGD (06/04/24) 1. Mild gastritis with some pre-pyloric antral gastric erosions which were healing -recommended small frequent meals with warm liquid. Continue Reglan 5 mg IV Q eight, can transition to p.o. b.i.d. once patient discharge. No need for repeat EGD. Follow with outpatient GI. Barium esophagogram on 11/04/2024:Abnormal esophageal contraction were visualized with delayed passage of contrast into the Anti-reflux precautions Continue with proton pump inhibitor Rest of the management as per primary team Follow up in outpatient setting GI. Plan discussed with: Patient, Other (RN) My Orders My Orders Orders - CHIDI RODRIGUEZ RESIDENT Procedure Category Date Status Time Metoclopramide PHA 11/05/24 In Process Injection (Reglan 14:00 CHIDI RODRIGUEZ RESIDENT Nov 05, 2024 17:51
== END 2024-11-05 17:10 | disposition home health service (06) | DRG 392 ==
LOC: ER 07:50 → EDUNIT# 07:50 → EDBD 07:50 → OVERFLOW 16:36 → WEST WING 17:58
PROVIDERS: ADMIT Internal Medicine; ATTEND Internal Medicine
DX: K57.32 Diverticulitis of large intestine without perforation or abscess without bleeding (principal); K29.00 Acute gastritis without bleeding; R13.10 Dysphagia, unspecified; Z20.822 Contact with and (suspected) exposure to COVID-19; I10 Essential (primary) hypertension; E78.00 Pure hypercholesterolemia, unspecified; F41.9 Anxiety disorder, unspecified; G62.9 Polyneuropathy, unspecified; Z86.73 Personal history of transient ischemic attack (TIA), and cerebral infarction without residual deficits; Z91.041 Radiographic dye allergy status; Z88.5 Allergy status to narcotic agent; Z88.8 Allergy status to other drugs, medicaments and biological substances; Z82.49 Family history of ischemic heart disease and other diseases of the circulatory system; Z83.3 Family history of diabetes mellitus; Z79.899 Other long term (current) drug therapy
CPT/HCPCS: 36415; 71045; 74176; 74220; 80048; 80053; 81001; 84484; 85025; 87426; 87804; 93005; 96360; 96361; 97110; 97116; 97163; 97530; G0378; J2405; J2470; J3490

== ENCOUNTER 2024-12-15 08:56 | Inpatient (IN) | payer OTHER, MEDICAID ==
[~2024-12-15] VITALS: Ht 162.6 cm; Wt 68.5 kg
[~2024-12-15 08:56] MED LIST changes: -ASPI81CH74 PO; -ATOR20TA50 PO; -CEPH500C PO; -DICL50TA4 PO; -HYDR-4902 PO; -HYDR-4924 PO; -IBUP-1456 PO; -LEVO25TA6 PO; +LEVO500T91 PO; -METO1TAB77 PO; +METR-344 PO; +SUCR1SUS26 PO; -ZOLP10TA6 PO; +[UNRECOGNIZED DRUG - CODE] PO; -[UNRECOGNIZED DRUG - CODE] PO
--- NOTE | 2024-12-15 10:46 | DVH ---
CHEST RADIOGRAPH Indication: headache Technique: Single frontal view of the chest was obtained COMPARISON: XY CHEST PORTABLE on DOS: 10/30/24, XY CHEST PORTABLE on DOS: 06/04/24, XY CHEST PORTABLE o n DOS: 05/23/24, XY CHEST PORTABLE on DOS: 04/29/24 FINDINGS: Lines and Tubes: None Lungs: Clear Pleura: No effusion. No pneumothorax. Cardiomediastinal contours: Unremarkable Bones: Unremarkable IMPRESSION: 1. No acute disease.
[2024-12-15] MEDS: SODIUM CHLORIDE 0.9% 1,000 ML IV ONE ×2 (10:55→13:30)
[2024-12-15] MEDS: METOCLOPRAMIDE HCL 5MG/ml INJ 2ml VIAL IV ONE (10:58)
[2024-12-15] MEDS: ACETAMINOPHEN 325 MG TAB PO ONE (10:59)
--- NOTE | 2024-12-15 11:02 | DVH ---
EXAM: CT HEAD WITHOUT CONTRAST HISTORY: headache COMPARISON: CT HEAD WITHOUT CONTRAST on DOS: 05/31/24, CT HEAD WITHOUT CONTRAST on DOS: 05/23/24 TECHNIQUE: Axial images of the head were obtained and reformatted in coronal and sagittal planes. All CT scans at this medical facility are performed using dose modulation techniques as appropriate t o a performed exam including the following: Automated exposure control was utilized; adjustment of th e MA and/or KV according to patient size; and use of iterative reconstruction technique. CT Dose: CTDI volume is 54.62 mGy. Dose-length product is 967.14 mGy*cm FINDINGS: There is no evidence of acute intracranial hemorrhage, mass, mass effect midline shift. There is no h ydrocephalus or extra-axial fluid collection. Tirado-white matter differentiation is maintained. The visualized paranasal sinuses and mastoid air cells are clear. The calvarium is intact. IMPRESSION: 1. No acute intracranial process. HS:Y
[2024-12-15 11:11] VITALS: PULSE 63; RESP 18; O2SAT 92
[2024-12-15 11:21] LABS: Basophils # (auto) 0 10 ^3/uL (0-0.2); Basophils % (auto) 0.3 % (0.0-2.0); Eosinophils # (auto) 0 10 ^3/uL (0-0.8); Eosinophils % (auto) 0.1 % (0.0-7.0); Hematocrit 36.2 % (36.0-46.0); Hemoglobin 12.5 g/dL (12.2-16.2); Lymphocytes # (auto) 1.6 10 ^3/uL (0.4-5.4); Lymphocytes % (auto) 15.3 % (10.0-50.0); Mean Corpuscular Hemoglobin 31.6 pg (28.0-32.0); Mean Corpuscular Hgb Conc. 34.6 g/dL (32.0-36.0); Mean Corpuscular Volume 91.5 fL (80.0-100.0); Monocytes # (auto) 0.8 10 ^3/uL (0-1.3); Monocytes % (auto) 7.9 % (0.0-12.0); Neutrophils % (auto) 76.4 % (37.0-80.0); Platelet Count (auto) 239 10^3/uL (140-450); Red Blood Cells 3.96 10^6/uL (4.0-5.20); Red Cell Distribution Width 13.3 % (11.8-14.3); White Blood Cell 10.5 10^3/uL (4.4-10.8)
[2024-12-15 11:25] LABS: Urine Bacteria None Seen /hpf (None Seen)
[2024-12-15 11:32] LABS: Potassium 3.9 mmol/L (3.5-5.1)
[2024-12-15 11:33] LABS: Anion Gap 10 (5-15); Calcium 9.3 mg/dL (8.7-10.4)
[2024-12-15 11:50] LABS: Urine Blood Negative /uL (Negative); Urine Clarity Turbid (Clear); Urine Color Light-Yellow (Yellow); Urine Protein, UAD Negative (Negative); Urine Specific Gravity 1.013 (1.001-1.035); Urine Squamous Epithelial Cell FEW /hpf (<5); Urine Urobilinogen Normal (Negative); Urine WBC 1 /HPF (0-5); Urine pH 7.5 (5.0-9.0)
[2024-12-15 11:53] LABS: Carbon Dioxide 20 mmol/L (20-31); Chloride 89 mmol/L (98-107); Glucose 113 mg/dL (74-106)
[2024-12-15 11:54] LABS: BUN/Creatinine Ratio 10.6 (10.0-20.0); Blood Urea Nitrogen < 5 mg/dL (9-23); Sodium 119 mmol/L (136-145)
--- NOTE | 2024-12-15 12:23 | ED.PDOC ---
History of Present Illness HPI Comments 74 y/o F, with a history of arthritis, CVA, HLD, and HTN, is BIBA for c/o head, face, throat, and epigastric abdominal pain, today. 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 She reports head being localized to the posterior side of her head, with associated "tension" to her posterior neck area. Patient denies any nausea, vomiting, dizziness, lightheadedness, photophobia, or other associated symptoms at this time. Chief Complaint: Headache Time Seen by MD: 10:15 Primary Care Provider: ALANNA Reviewed Notes: Nurses Notes, Coach Notes, Medications, Allergies Allergies: Coded Allergies: Dipyridamole (Verified Allergy, Severe, 03/21/24) Propoxyphene (Verified Allergy, Severe, 03/21/24) Iodine (Verified Allergy, Intermediate, 05/23/24) Atorvastatin (Verified Allergy, Unknown, 08/12/24) Uncoded Allergies: CONTRAST (Allergy, Unknown, 10/30/24) Home Meds Active Scripts Metronidazole (Flagyl) 500 Mg Tab, 500 MG PO TID for 10 Days, #30 TAB Prov:ROBERT PRICE MD 11/05/24 Levofloxacin Hemihydrate (LEVAQUIN 500 MG) 500 Mg Tab, 500 MG PO DAILY for 10 Days, #10 TAB Prov:ROBERT PRICE MD 11/05/24 Pantoprazole Sodium Sesquihydr (Protonix) 40 Mg Tab, 40 MG PO BID for 30 Days, #60 TAB Prov:ROBERT PRICE MD 11/05/24 Sucralfate (CARAFATE SUSP) 1 Gm/10 Ml Ss, 1 GM PO QID@0600,1130,1700,2200 for 14 Days, #28 ML Prov:ROBERT PRICE MD 11/05/24 Pantoprazole Sodium Sesquihydr (Pantoprazole Sodium) 40 Mg Tab, 40 MG PO DAILY, #30 TAB Prov:NADIA CONKLIN MD 06/05/24 Atorvastatin Calcium (Lipitor) 20 Mg Tab, 1 TAB PO DAILY, #30 TAB 1 Refill Prov:NADIA CONKLIN MD 06/05/24 Acetaminophen (Acetaminophen) 325 Mg Tab, 650 MG PO Q6HP PRN for 10 Days, #80 TAB Prov:EREN BOWIE RESIDENT 05/25/24 Zolpidem Tartrate (Ambien) 10 Mg Tab, 1 TAB PO QPM PRN, #30 TAB 5 Refills Prov:NADIA CONKLIN MD 03/24/24 Aspirin (Aspirin Adult Low Dose) 81 Mg Tab, 81 MG PO DAILY, #180 TAB Prov:NADIA CONKLIN MD 03/24/24 Reported Medications Simethicone (Gas-X Extra Strength) 125 Mg Chw, 125 MG PO BID, TAB.CHEW 10/31/24 Hydralazine Hcl (Hydralazine Hcl) 25 Mg Tab, 1 TAB PO BID for 90 Days, #180 07/29/24 Metformin Hydrochloride (Metformin Hcl) 500 Mg Tab, 1 TAB PO DAILY for 90 Days, #90 07/29/24 Paroxetine Hydrochloride (Paroxetine Hydrochloride) 20 Mg Tab, 1 TAB PO DAILY for 30 Days, #30 07/29/24 Gabapentin (Gabapentin) 600 Mg Tab, 1 TAB PO TID for 90 Days, #270 07/28/24 Polyethylene Glycol-Propylene (Systane) Doretha, 1 DROP EACHEYE QIDPRN, #30 ML 5 Refills 05/24/24 Metoprolol Tartrate (LOPRESSOR TABLET) 50 Mg Tb, 1 TAB PO BID, #60 TAB 5 Refills 03/22/24 Information Source: Patient, Emergency Med Personnel Mode of Arrival: EMS Severity: Moderate Timing: Hours Duration: Since onset Prehospital treatment: 12 Lead EKG, Accucheck (127), Maintenance Director Past Medical History PAST MEDICAL HISTORY: Arthritis, CVA, High Lipids, HTN Surgical History: (3x), Hernia Repair Surgical History (Other): left-knee and eye surgery [employer] History: No Pertinent [employer] History Family History Family History: No family hx of Cancer, No family hx of DM, No family hx of Heart cristino Social History Smoker: Non-Smoker Alcohol: Denies ETOH Use Drugs: Denies Drug Use Lives In: Home All Other Systems: Reviewed and Negative (Comprehensive systems review obtained and negative except for what is stated in the HPI.) Physical Exam General Appearance: No Apparent Distress, Normal, Other (appears uncomfortable) HEENT: Normal ENT Inspection, Pharynx Normal, TMs Normal Neck: Full Range of Motion, Non-Tender, Normal, Normal Inspection Respiratory: Chest Non-Tender, Lungs Clear, No Accessory Muscle Use, No Respiratory Distress, Normal Breath Sounds Cardiovascular: No Edema, No JVD, No Murmur, No Gallop, Normal Peripheral Pulses, Regular Rate/Rhythm Breast Exam: Deferred Gastrointestinal: No Organomegaly, Non Tender, No Pulsatile Mass, Normal Bowel Sounds, Soft Genitalia: Deferred Pelvic: Deferred Rectal: Deferred Extremities: No calf tenderness, Normal capillary refill, Normal inspection, Normal range of motion, Non-tender, No pedal edema Musculoskeletal : Apperance: Normal Neurologic: Alert, instructor of education II-XII nml as Tested, No Motor Deficits, Normal Affect, Normal Mood, No Sensory Deficits Cerebellar Function: Normal Reflexes: Normal Skin: Dry, Normal Color, Warm Lymphatic: No Adenopathy Was a procedure done? Was a procedure done?: No Differential Dx Considerations may include: tension headaches, migraines, trigeminal neurologia, electrolyte imbalance, gastritis, gastroenteritis, viral syndrome, among others X-Ray, Labs, Meds, VS Vital Signs Date Time Temp Pulse Resp B/P (MAP) Pulse Ox O2 Delivery O2 Flow Rate FiO2 12/15/24 12:36 97.6 61 16 144/74 (97) 90 97.6 12/15/24 12:30 96 Room Air* 0 21 12/15/24 11:11 63 18 92 Room Air* 0 21 12/15/24 11:09 63 18 146/64 (91) 92 12/15/24 10:59 99.1 12/15/24 09:02 99.1 80 18 118/71 (87) 100 99.1 Lab Test 12/15/24 11:59 12/15/24 10:53 12/15/24 10:44 Range/Units Troponin I High Sensitivity 6 6 </=34 ng/L Urine Color Light-yellow Yellow Urine Clarity Turbid H Clear Urine pH 7.5 5.0-9.0 Urine Specific [place] 1.013 1.001-1.035 Urine Protein Negative Negative Urine Ketones 1+ H Negative Urine Blood Negative Negative /uL Urine Nitrite Negative Negative Urine Bilirubin Negative Negative Urine Urobilinogen Normal Negative mg/dL Urine Leukocyte Esterase Negative Negative /uL Urine RBC <1 0 - 4 /hpf Urine Microscopic WBC 1 0-5 /HPF Urine Squamous Epithelial Cells Few <5 /hpf Urine Bacteria None seen None Seen /hpf Urine Glucose Normal Normal mg/dL White Blood Count 10.5 4.4-10.8 10^3/uL Red Blood Count 3.96 L 4.0-5.20 10^6/uL Hemoglobin 12.5 12.2-16.2 g/dL Hematocrit 36.2 36.0-46.0 % Mean Corpuscular Volume 91.5 80.0-100.0 fL Mean Corpuscular Hemoglobin 31.6 28.0-32.0 pg Mean Corpuscular Hemoglobin Concent 34.6 32.0-36.0 g/dL Red Cell Distribution Width 13.3 11.8-14.3 % Platelet Count 239 140-450 10^3/uL Mean Platelet Volume 10.1 6.9-10.8 fL Neutrophils (%) (Auto) 76.4 37.0-80.0 % Lymphocytes (%) (Auto) 15.3 10.0-50.0 % Monocytes (%) (Auto) 7.9 0.0-12.0 % Eosinophils (%) (Auto) 0.1 0.0-7.0 % Basophils (%) (Auto) 0.3 0.0-2.0 % Neutrophils # (Auto) 8.0 1.6-8.6 10 ^3/uL Lymphocytes # (Auto) 1.6 0.4-5.4 10 ^3/uL Monocytes # (Auto) 0.8 0-1.3 10 ^3/uL Eosinophils # (Auto) 0 0-0.8 10 ^3/uL Basophils # (Auto) 0 0-0.2 10 ^3/uL Nucleated Red Blood Cells 0.0 % Sodium Level 119 *L 136-145 mmol/L Potassium Level 3.9 3.5-5.1 mmol/L Chloride Level 89 L 98-107 mmol/L Carbon Dioxide Level 20 20-31 mmol/L Anion Gap 10 5-15 Blood Urea Nitrogen < 5 L 9-23 mg/dL Creatinine 0.47 L 0.550-1.02 mg/dL Glomerular Filtration Rate Calc 99 >90 mL/min BUN/Creatinine Ratio 10.6 10.0-20.0 Serum Glucose 113 H 74-106 mg/dL Calcium Level 9.3 8.7-10.4 mg/dL Current Medications Medications (Trade) Dose Ordered Sig/Shay Route Start Time Stop Time Status Last Admin Sodium Chloride 1,000 ml @ 1,000 mls/hr Q1H ONCE IV 12/15/24 10:15 12/15/24 11:14 DC 12/15/24 10:55 Metoclopramide HCl (Reglan Injection) 10 mg ONCE ONCE IV 12/15/24 10:15 12/15/24 10:16 DC 12/15/24 10:58 Acetaminophen (Tylenol Tablet) 650 mg ONCE ONCE PO 12/15/24 10:15 12/15/24 10:16 DC 12/15/24 10:59 [place] [address] Ph: [phone] DIAGNOSTIC IMAGING Diagnostic Imaging Report : [id number] Signed PATIENT: HUONG MORGAN ACCT: [id number] UNIT: [id number] : 1950 LOC: ER ROOM / BED: / AGE / SEX: 74 / F ADM STATUS: REG ER SERVICE 1015 ORDERING PHYSICIAN: FLAVIA MELCHOR MD PROCEDURE(s): HWOCT - HEAD WITHOUT CONTRAST REASON: headache ORDER NUMBER(s): [id number], ACCESSION NUMBER(s): [id number] EXAM: CT HEAD WITHOUT CONTRAST HISTORY: headache COMPARISON: CT HEAD WITHOUT CONTRAST on DOS: 05/31/24, CT HEAD WITHOUT CONTRAST on DOS: 05/23/24 TECHNIQUE: Axial images of the head were obtained and reformatted in coronal and sagittal planes. All CT scans at this medical facility are performed using dose modulation techniques as appropriate to a performed exam including the following: Automated exposure control was utilized; adjustment of the MA and/or KV according to patient size; and use of iterative reconstruction technique. CT Dose: CTDI volume is 54.62 mGy. Dose-length product is 967.14 mGy*cm FINDINGS: There is no evidence of acute intracranial hemorrhage, mass, mass effect midline shift. There is no hydrocephalus or extra-axial fluid collection. [place]-white matter differentiation is maintained. The visualized paranasal sinuses and mastoid air cells are clear. The calvarium is intact. IMPRESSION: 1. No acute intracranial process. HS:Y ATED BY: DANIEL DE LA ROSA MD DICTATED DATE/TIME: 12/15/24 1100 SIGNED BY: DANIEL DE LA ROSA MD SIGNED DATE/TIME: 12/15/24 1100 CC: [address] [address] Ph: [phone] DIAGNOSTIC IMAGING Diagnostic Imaging Report : [id number] Signed PATIENT: HUONG MORGAN ACCT: [id number] UNIT: [id number] : 1950 LOC: ER ROOM / BED: / AGE / SEX: 74 / F ADM STATUS: REG ER SERVICE 1015 ORDERING PHYSICIAN: FLAVIA MELCHOR MD PROCEDURE(s): CXRP - CHEST PORTABLE REASON: headache ORDER NUMBER(s): [id number], ACCESSION NUMBER(s): [id number] CHEST RADIOGRAPH Indication: headache Technique: Single frontal view of the chest was obtained COMPARISON: XY CHEST PORTABLE on DOS: 10/30/24, XY CHEST PORTABLE on DOS: 06/04/24, XY CHEST PORTABLE on DOS: 05/23/24, XY CHEST PORTABLE on DOS: 04/29/24 FINDINGS: Lines and Tubes: None Lungs: Clear Pleura: No effusion. No pneumothorax. Cardiomediastinal contours: Unremarkable Bones: Unremarkable IMPRESSION: 1. No acute disease. ATED BY: WILVER BISHOP MD DICTATED DATE/TIME: 12/15/24 1043 SIGNED BY: WILVER BISHOP MD SIGNED DATE/TIME: 12/15/24 104 CC: Time of 1ST Reevaluation: 10:45 Reevaluation 1ST: Unchanged Patient Education/Counseling: Diagnosis, Treatment Family Education/Counseling: No Family Present Departure 1 Departure Time of Disposition: 13:24 (Patient with a acute hyponatremia. Slowly raised the patient's sodium and admit patient for further workup) Impression: Primary Impression: Hyponatremia Additional Impression: Intractable migraine Qualified Codes: G43.111 - Migraine with aura, intractable, with status migrainosus Disposition: ADMITTED INPATIENT Admit to: [facility] Condition: Guarded Critical Care Note Critical Care Time?: Yes Critical care comment: Hyponatremia Authorized and Performed by: Flavia Melchor MD Total critical care time: Approximately 42 minutes Due to a high probability of clinically significant, life threatening deterioration, the patient required my highest level of preparedness to intervene emergently and I personally spent this critical care time directly and personally managing the patient. This critical care time included obtaining a history; examining the patient; pulse oximetry; ordering and review of studies; arranging urgent treatment with development of a management plan; evaluation of patient's response to treatment; frequent reassessment; and, discussions with other providers. This critical care time was performed to assess and manage the high probability of imminent, life-threatening deterioration that could result in multi-organ failure. It was exclusive of separately billable procedures and treating other patients and teaching time. Please see my other sections and the rest of the note for further information on patient assessment and treatment. Stability Stability form required: No Heart Score Heart Score: Heart Score Response (Comments) Value History N/A 0 EKG N/A 0 Age N/A 0 Risk Factors N/A 0 Troponin N/A 0 Total 0 I personally scribed for FLAVIA MELCHOR MD ([email or web address]) on 12/15/24 at 12:23. Electronically submitted by Abner Man ([email or web address]). FLAVIA MELCHOR MD Dec 15, 2024 12:23
[2024-12-15 12:30] VITALS: O2SAT 96
[2024-12-15] MEDS ORDERED: DEXTROSE (50%) 50ML SYRG IV PRN (14:30)
[2024-12-15] MEDS ORDERED: NITROGLYCERIN 0.4 MG SL TAB SL PRN (14:30)
[2024-12-15] MEDS ORDERED: MORPHINE SULFATE INJ 2 MG/ml SYRG IV PRN (14:30)
[2024-12-15] MEDS ORDERED: ONDANSETRON HCL 4 MG/2 ML VIAL IV PRN (14:30)
--- NOTE | 2024-12-15 14:54 | DVHHP2 ---
History of Present Illness Reason for Visit: Headache History of Present Illness Bekah Caceres is a 74-year-old female with past medical history hypertension, hyperlipidemia, arthritis, and CVA who came in for severe headache. Patient states her headache began last night and she is having associated visual disturbances. Patient also states she is anxious. 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: CVA Musculoskeletal: Osteoarthritis Past Surgical History: (x 6), Other (bilateral eyyes), Total knee replacement (left) Smoke: No ALCOHOL: none Drugs: None Lives: with Family Domestic Violence: Neg Review of Systems Constitutional: Yes: Other (Headache); No: Fever, Chills, Sweats, Weakness, Malaise Eyes: No: Pain, Vision change, Conjunctivae inflammation, Eyelid inflammation, Other, Redness ENT: No: Ear pain, Ear discharge, Nose pain, Nose discharge, Nose congestion, Mouth pain, Mouth swelling, Throat pain, Throat swelling, Other Respiratory: No: Cough, Dry, Shortness of breath, SOB with excertion, Wheezing, Hemoptysis, Pleuritic Pain, Sputum, Wheezing, Other Cardiovascular: No: Chest Pain, Palpitations, Orthopnea, Paroxysmal Noc. Dyspnea, Edema, Lt Headedness, Other Gastrointestinal: No: Nausea, Vomiting, Abdominal Pain, Diarrhea, Constipation, Melena, Hematochezia, Other Genitourinary: No Dysuria, No Frequency, No Incontinence, No Hematuria, No Retention, No Other Musculoskeletal: No: other, neck pain, shoulder pain, arm pain, back pain, hand pain, leg pain, foot pain Skin: No: Rash, Lesions, Jaundice, Bruising, Other Neurological: No: Weakness, Numbness, Incoordination, Change in speech, Confusion, Seizures, Other Allergies: Coded Allergies: Dipyridamole (Verified Allergy, Severe, 03/21/24) Propoxyphene (Verified Allergy, Severe, 03/21/24) Iodine (Verified Allergy, Intermediate, 05/23/24) Atorvastatin (Verified Allergy, Unknown, 08/12/24) Uncoded Allergies: CONTRAST (Allergy, Unknown, 10/30/24) Exam Vital Signs Vital Signs Date Time Temp Pulse Resp B/P (MAP) Pulse Ox O2 Delivery O2 Flow Rate FiO2 12/15/24 12:36 97.6 61 16 144/74 (97) 90 97.6 4/7/25 12:30 Room Air* 0 21 General Appearance: Alert, Oriented X3, Cooperative, mild distress HEENT: Atraumatic, PERRLA Respiratory: Clear to auscultation, Normal air movement Cardiovascular: Regular rate, Normal S1, Normal S2 Abdominal: Normal bowel sounds, Soft, No tenderness Extremities: No clubbing, No cyanosis, Normal pulses, No tenderness/swelling Skin: No rashes, No breakdown, No significant lesion Neuro: Normal speech, Other (minimal ambulation with walker at baseline) Psych/Mental Status: Mental status NL, Mood NL Labs/Xrays Labs Test 12/15/24 13:57 12/15/24 10:53 12/15/24 10:44 Range/Units Troponin I High Sensitivity 6 </=34 ng/L Urine Color Light-yellow Yellow Urine Clarity Turbid H Clear Urine pH 7.5 5.0-9.0 Urine Specific [place] 1.013 1.001-1.035 Urine Protein Negative Negative Urine Ketones 1+ H Negative Urine Blood Negative Negative /uL Urine Nitrite Negative Negative Urine Bilirubin Negative Negative Urine Urobilinogen Normal Negative mg/dL Urine Leukocyte Esterase Negative Negative /uL Urine RBC <1 0 - 4 /hpf Urine Microscopic WBC 1 0-5 /HPF Urine Squamous Epithelial Cells Few <5 /hpf Urine Bacteria None seen None Seen /hpf Urine Glucose Normal Normal mg/dL White Blood Count 10.5 4.4-10.8 10^3/uL Red Blood Count 3.96 L 4.0-5.20 10^6/uL Hemoglobin 12.5 12.2-16.2 g/dL Hematocrit 36.2 36.0-46.0 % Mean Corpuscular Volume 91.5 80.0-100.0 fL Mean Corpuscular Hemoglobin 31.6 28.0-32.0 pg Mean Corpuscular Hemoglobin Concent 34.6 32.0-36.0 g/dL Red Cell Distribution Width 13.3 11.8-14.3 % Platelet Count 239 140-450 10^3/uL Mean Platelet Volume 10.1 6.9-10.8 fL Neutrophils (%) (Auto) 76.4 37.0-80.0 % Lymphocytes (%) (Auto) 15.3 10.0-50.0 % Monocytes (%) (Auto) 7.9 0.0-12.0 % Eosinophils (%) (Auto) 0.1 0.0-7.0 % Basophils (%) (Auto) 0.3 0.0-2.0 % Neutrophils # (Auto) 8.0 1.6-8.6 10 ^3/uL Lymphocytes # (Auto) 1.6 0.4-5.4 10 ^3/uL Monocytes # (Auto) 0.8 0-1.3 10 ^3/uL Eosinophils # (Auto) 0 0-0.8 10 ^3/uL Basophils # (Auto) 0 0-0.2 10 ^3/uL Nucleated Red Blood Cells 0.0 % Sodium Level 119 *L 136-145 mmol/L Potassium Level 3.9 3.5-5.1 mmol/L Chloride Level 89 L 98-107 mmol/L Carbon Dioxide Level 20 20-31 mmol/L Anion Gap 10 5-15 Blood Urea Nitrogen < 5 L 9-23 mg/dL Creatinine 0.47 L 0.550-1.02 mg/dL Glomerular Filtration Rate Calc 99 >90 mL/min BUN/Creatinine Ratio 10.6 10.0-20.0 Serum Glucose 113 H 74-106 mg/dL Calcium Level 9.3 8.7-10.4 mg/dL EXAM: CT HEAD WITHOUT CONTRAST FINDINGS: There is no evidence of acute intracranial hemorrhage, mass, mass effect midline shift. There is no hydrocephalus or extra-axial fluid collection. [place]-white matter differentiation is maintained. The visualized paranasal sinuses and mastoid air cells are clear. The calvarium is intact. IMPRESSION: 1. No acute intracranial process. CHEST RADIOGRAPH FINDINGS: Lines and Tubes: None Lungs: Clear Pleura: No effusion. No pneumothorax. Cardiomediastinal contours: Unremarkable Bones: Unremarkable IMPRESSION: 1. No acute disease. Assessment/Plan Assessment/Plan Assessment: Intractable migraine, Hypertension, Hyperlipidemia, Plan: Admit to Tele, Pain management, IV hydration, Home medications reconciled, Plan discussed with: Patient My Orders Orders - JESENIA HOU SALES ATTENDANT Procedure Category Date Status Time Ketorolac Injection PHA 12/15/24 Verified (Toradol Injection) 14:30 Hydroxyzine Oral PHA 12/15/24 Verified (Vistaril Oral) 14:30 Admit ADMIT 12/15/24 Verified 14:24 Code Status CODE 12/15/24 Verified 14:24 2 Gm Sodium Diet DIET 12/15/24 Verified Dinner Sodium Chloride Lock PHA 12/15/24 Verified (Saline Lock Ns) 22:00 Hydrocodone-Acet PHA 12/15/24 Verified 5/325mg Tab (Freedom 14:30 Ondansetron Hcl PHA 12/15/24 Verified (Zofran) 14:30 Docusate Sodium PHA 12/15/24 Verified Capsule (Colace 14:30 Fall Risk Precautions JOSE ELIAS 12/15/[address] 14:24 Complete Blood Count LAB 12/16/24 Verified 04:00 Comprehensive LAB 12/16/24 Verified Metabolic Panel 04:00 Condition: Serious JOSE ELIAS 12/15/24 Verified 14:24 Acetaminophen Tablet PHA 12/15/24 Verified (Tylenol Tablet) 14:30 Nitroglycerin PHA 12/15/24 Verified Sublingual (Ntrostat 14:30 Morphine Sulfate PHA 12/15/24 Verified Injection 14:30 Stat Ekg For Chest JOSE ELIAS 12/15/24 Verified Pain 14:24 Notify Md Of Changes [facility] 12/15/24 Verified From Base 14:24 Oncology Nurse For [facility] 12/15/24 Verified 24 Hours 14:24 Emergency Dysrhythmia JOSE ELIAS 12/15/24 Verified Protocol 14:24 Rhythm Strips Once [facility] 12/15/24 Verified Every Shift 14:24 Oxygen By Nasal RT 12/15/24 Verified Cannula 14:24 Glucose Blood PHA 12/15/24 Verified (Accu-Chek Comfort 17:00 Bedtime Insulin Scale PHA 12/15/24 Verified 22:00 Moderate Insulin Ss PHA 12/15/24 Verified 17:00 Dextrose 50% Syringe PHA 12/15/24 Verified 14:30 Aspirin Enteric PHA 12/16/24 Verified Coated Tablet 10:00 Hydralazine Hcl PHA 12/15/24 Verified Tablet (Apresoline 22:00 Metoprolol Tartrate PHA 12/15/24 Verified Tablet (Lopressor Ta 22:00 Pantoprazole Tablet PHA 12/16/24 Verified (Protonix Tablet) 10:00 (Nf) Gabapentin PHA 12/15/24 Verified 22:00 (Nf) Polyethylene PHA 12/15/24 Verified Glycol-Propylene (Syst 18:00 (Nf) Simethicone PHA 12/15/24 Verified (Gas-X Extra Strength) 22:00 Date of Service: Dec 15, 2024 Billing Provider: SCHWING,JESENIA R SALES ATTENDANT Common Visit Codes: [id number] INP/OBS CARE (MOD) JESENIA HOU SALES ATTENDANT Dec 15, 2024 14:54
[2024-12-15] MEDS: hydrOXYzine 25 MG TAB or CAP PO ONE (15:19)
[2024-12-15] MEDS ORDERED: ARTIFICIAL TEARS 15ml EACHEYE PRN (15:30)
[2024-12-15] MEDS: KETOROLAC TROMETH 30 MG/ML 1ML VIAL IV ONE (16:10)
[2024-12-15 16:42] LABS: Alanine Aminotransferase 11 U/L (7-40); Albumin 3.9 g/dL (3.2-4.8); Alkaline Phosphatase 72 U/L (46-116); Anion Gap 9 (5-15); Aspartate Aminotransferase 16 U/L (13-40); Bilirubin, Total 1.1 mg/dL (0.2-1.0); Calcium 8.7 mg/dL (8.7-10.4); Glucose 100 mg/dL (74-106)
[2024-12-15 16:43] LABS: BUN/Creatinine Ratio 11.6 (10.0-20.0); Blood Urea Nitrogen < 5 mg/dL (9-23); Carbon Dioxide 19 mmol/L (20-31); Chloride 98 mmol/L (98-107); Potassium 3.2 mmol/L (3.5-5.1); Sodium 126 mmol/L (136-145)
[2024-12-15] MEDS: ACCU-CHEK COMFORT CURVE STRIP VI SCH (17:00)
[2024-12-15] MEDS: InsuLIN REG 1unit/0.01ml Soln (100units/ml) SC SCH ×2 (17:00→22:00)
[2024-12-15 20:00] VITALS: PULSE 78; RESP 18; O2SAT 92
[2024-12-15] MEDS: HYDROcodone-ACET 5/325MG TAB PO PRN (20:24)
[2024-12-15 22:00] VITALS: BP 142/81; PULSE 83; RESP 17; TEMP 98.2; O2SAT 94
[2024-12-15 22:09] VITALS: BP 142/81; PULSE 83; RESP 17; TEMP 98.2; O2SAT 94
[2024-12-15] MEDS: SODIUM CHLOR 0.9% PF (SALINE LOCK) 10ML VIAL/SYR IV SCH (23:33)
[2024-12-15] MEDS: METOPROLOL TARTRATE 50 MG TAB PO SCH (23:34)
[2024-12-15] MEDS: hydrALAZINE HCL 25 MG TAB PO SCH (23:35)
[2024-12-15] MEDS: SIMETHICONE 80 MG CHEWABLE TABLET PO SCH (23:36)
[2024-12-15] MEDS: GABAPENTIN 300 MG CAP PO SCH (23:36)
[2024-12-16] VITALS (8 sets, daily range): BP systolic 112–142; BP diastolic 50–71; PULSE 56–78; RESP 16–18; TEMP 97.5–98.5; O2SAT 96–98
[2024-12-16] MEDS: ALPRAZolam 0.25 MG TAB PO ONE ×3 (00:45→23:25)
[2024-12-16 06:30] LABS: Basophils # (auto) 0 10 ^3/uL (0-0.2); Basophils % (auto) 0.4 % (0.0-2.0); Eosinophils # (auto) 0 10 ^3/uL (0-0.8); Eosinophils % (auto) 0.5 % (0.0-7.0); Hematocrit 33.2 % (36.0-46.0); Hemoglobin 11.7 g/dL (12.2-16.2); Lymphocytes # (auto) 1.7 10 ^3/uL (0.4-5.4); Lymphocytes % (auto) 21.5 % (10.0-50.0); Mean Corpuscular Hemoglobin 32.2 pg (28.0-32.0); Mean Corpuscular Hgb Conc. 35.1 g/dL (32.0-36.0); Mean Corpuscular Volume 91.9 fL (80.0-100.0); Monocytes # (auto) 0.8 10 ^3/uL (0-1.3); Monocytes % (auto) 10.1 % (0.0-12.0); Neutrophils # (auto) 5.4 10 ^3/uL (1.6-8.6); Neutrophils % (auto) 67.5 % (37.0-80.0); Platelet Count (auto) 207 10^3/uL (140-450); Red Blood Cells 3.62 10^6/uL (4.0-5.20); Red Cell Distribution Width 13.5 % (11.8-14.3)
[2024-12-16 06:50] LABS: Alanine Aminotransferase 12 U/L (7-40); Anion Gap 9 (5-15); Aspartate Aminotransferase 14 U/L (13-40); BUN/Creatinine Ratio 12.5 (10.0-20.0); Calcium 9.2 mg/dL (8.7-10.4); Carbon Dioxide 21 mmol/L (20-31); Chloride 100 mmol/L (98-107); Glucose 98 mg/dL (74-106); Potassium 3.5 mmol/L (3.5-5.1); Total Protein 6.1 g/dL (5.7-8.2)
[2024-12-16 06:53] LABS: Blood Urea Nitrogen 6 mg/dL (9-23); Sodium 130 mmol/L (136-145)
[2024-12-16 07:14] LABS: Alkaline Phosphatase 68 U/L (46-116)
[2024-12-16] MEDS: ASPirin-EC 81 mg tab PO SCH (09:51)
[2024-12-16] MEDS: PANTOPRAZOLE 40 MG TAB PO SCH (09:51)
--- NOTE | 2024-12-16 10:56 | DVHPN2 ---
Eyes: No Pain, No Vision change, No Conjunctivae inflammation, No Eyelid inflammation, No Other, No Redness ENT: No Ear pain, No Ear discharge, No Nose pain, No Nose discharge, No Nose congestion, No Mouth pain, No Mouth swelling, No Throat pain, No Throat swelling, No Other Cardiovascular: No Chest Pain, No Palpitations, No Orthopnea, No Paroxysmal Noc. Dyspnea, No Edema, No Lt Headedness, No Other Respiratory: No Cough, No Dry, No Shortness of breath, No SOB with excertion, No Wheezing, No Hemoptysis, No Pleuritic Pain, No Sputum, No Other Gastrointestinal: No Nausea, No Vomiting, No Abdominal Pain, No Diarrhea, No Constipation, No Melena, No Hematochezia, No Other Genitourinary: No Dysuria, No Frequency, No Incontinence, No Hematuria, No Retention, No Other Musculoskeletal: No other, No neck pain, No shoulder pain, No arm pain, No back pain, No hand pain, No leg pain, No foot pain Skin: No Rash, No Lesions, No Jaundice, No Bruising, No Other Objective Vitals Vital Signs Date Time Temp Pulse Resp B/P (MAP) Pulse Ox O2 Delivery O2 Flow Rate FiO2 12/16/24 09:51 66 112/70 12/16/24 09:00 98.1 16 96 98.1 12/15/24 22:09 Room Air* 0 21 Intake/Output Intake and Output 12/16/24 07:00 Intake Total 2250 ml Balance 2250 ml Intake Oral 250 ml IV Total 2000 ml # Voids 1 Medications Current Medications Medications Dose Ordered Sig/Shay Route Start Time Stop Time Status Last Admin Dose Admin Sodium Chloride 10 ml Q8HR IV 12/15/24 22:00 12/16/24 06:07 10 ML Acetaminophen/ Hydrocodone Bitart 1 tab Q4HP PRN PO 12/15/24 14:30 12/16/24 04:29 1 TAB Ondansetron HCl 4 mg Q4HP PRN IV 12/15/24 14:30 Docusate Sodium 100 mg BIDPRN PRN PO 12/15/24 14:30 Acetaminophen 650 mg Q6HP PRN PO 12/15/24 14:30 Nitroglycerin 0.4 mg Q5MINP PRN SL 12/15/24 14:30 Morphine Sulfate 2 mg Q30M PRN IV 12/15/24 14:30 Diagnostic Test (Pha) 1 strip ACHS 12/15/24 17:00 12/16/24 06:56 1 STRIP Insulin Human Regular HS SC 12/15/24 22:00 Insulin Human Regular AC SC 12/15/24 17:00 Dextrose 50 ml UD PRN IV 12/15/24 14:30 Aspirin 81 mg DAILY PO 12/16/24 10:00 12/16/24 09:51 81 MG Hydralazine HCl 25 mg BID PO 12/15/24 22:00 12/16/24 09:50 25 MG Metoprolol Tartrate 50 mg BID PO 12/15/24 22:00 12/16/24 09:51 50 MG Pantoprazole Sodium 40 mg DAILY PO 12/16/24 10:00 12/16/24 09:51 40 MG Gabapentin 600 mg TID PO 12/15/24 22:00 12/16/24 06:07 600 MG Artificial Tears 1 drop QIDPRN PRN EACHEYE 12/15/24 15:30 Dimethicone 80 mg TID PO 12/15/24 22:00 12/16/24 06:07 80 MG Laboratory Results Laboratory Tests 12/16/24 05:25 Chemistry Test 12/15/24 16:11 12/16/24 05:25 Albumin 3.9 g/dL (3.2-4.8) 4.0 g/dL (3.2-4.8) Calcium Level 8.7 mg/dL (8.7-10.4) 9.2 mg/dL (8.7-10.4) Total Protein 6.0 g/dL (5.7-8.2) 6.1 g/dL (5.7-8.2) LFT Test 12/15/24 16:11 12/16/24 05:25 Alanine Aminotransferase (ALT) 11 U/L (7-40) 12 U/L (7-40) Alkaline Phosphatase 72 U/L (46-116) 68 U/L (46-116) Aspartate Amino Transferase (AST) 16 U/L (13-40) 14 U/L (13-40) Total Bilirubin 1.1 mg/dL (0.2-1.0) H 1.0 mg/dL (0.2-1.0) Urinalysis Test 12/15/24 10:53 Urine Color Light-yellow (Yellow) Urine Clarity Turbid (Clear) H Urine pH 7.5 (5.0-9.0) Urine Specific [place] 1.013 (1.001-1.035) Urine Protein Negative (Negative) Urine Ketones 1+ (Negative) H Urine Blood Negative /uL (Negative) Urine Nitrite Negative (Negative) Urine Bilirubin Negative (Negative) Urine Urobilinogen Normal mg/dL (Negative) Urine Leukocyte Esterase Negative /uL (Negative) Urine RBC <1 /hpf (0 - 4) Urine Microscopic WBC 1 /HPF (0-5) Urine Squamous Epithelial Cells Few /hpf (<5) Urine Bacteria None seen /hpf (None Seen) Urine Sodium 60 mmol/L (40-220) Urine Glucose Normal mg/dL (Normal) ROBERT ANGULO MD Dec 16, 2024 10:56
[2024-12-16] MEDS ORDERED: KETOROLAC TROMETH 30 MG/ML 1ML VIAL IV PRN (11:00)
[2024-12-16] MEDS: KETOROLAC TROMETH 30 MG/ML 1ML VIAL IV PRN (13:36)
--- NOTE | 2024-12-16 22:49 | DVHINCON2 ---
Date of service: Dec 16, [address] Valentin Reason for Consultation Migraine History of Present Illness She was a poor historian. The consultation is difficult Ms. Reina Caceres is a 74 years old right-handed female with a history of hypertension, prediabetes, obesity, the patient came to the [facility] on 12/15/24 with a chief company of pain in the head, face, neck, and stomach. At this time, she is alert and oriented x4, she provided the following history with her bilingual staff's interpretation. The patient is poor historian I saw on 03/21/2024 for left facial numbness (MRI negative), 06/02/2024 for headache She reports having constant pain, 9/10, in bilateral head, neck (at the beginning, she said the patient was only in the left head and neck) with left- sided more affected, she said this is a "not and hot pain". Along with the headache, she was has blurry vision, which goes away after he takes pain medication. Since she was discharged home in 03/2024, she claims she takes ibuprofen 800 mg 4 times a day every single day, recommended by her family doctor On 01/26/2024, when she was in [place], she could not open her mouth, she was did not seek medical attention, but later she was said to have stroke when she was in the [facility] Reports that she had a major stroke on 03/22/2024 in that she had numbness in the left face (MRI head was negative) CBC, 12/15/2024: Unremarkable Na, 12/15/2024: 126, 12/16/2024: 130 Liver function tests, 12/16/2024: Unremarkable TG/HDL/LDL/HDL, : 65/107/47/51 Vitamin B12, 06/03/2024: 518 TSH, 07/2024: 0.57 Echocardiogram, 03/22/2024: EF: 60%. CT head, 03/21/2024: No acute intracranial abnormality CT head, 05/31/2024: 1. No acute intracranial hemorrhage. 2. No CT findings of territorial ischemia. 3. No significant change from prior CT of the head 05/23/2024 report of MRI brain 05/24/2024 MR head, 03/22/2024: No acute abnormal MRI findings of the brain. MRI head, 05/24/2024: No evidence of acute intracranial abnormalities. Nonspecific partially empty sella MRI head, 06/02/2024: No acute intracranial pathology. No sinus disease Past Medical History Hypertension, prediabetes, dyslipidemia, stroke, arthritis, obesity Past Surgical History Hernia repair, , left knee surgery, eye surgery Family History: Diabetes mellitus G8 MOTHER Hypertension G8 MOTHER Family History Hypertension, diabetes Social History She was tobacco smoke, no history of alcohol or recreational substances abuse Allergies: Coded Allergies: Dipyridamole (Verified Allergy, Severe, 03/21/24) Propoxyphene (Verified Allergy, Severe, 03/21/24) Iodine (Verified Allergy, Intermediate, 05/23/24) Atorvastatin (Verified Allergy, Unknown, 08/12/24) Uncoded Allergies: CONTRAST (Allergy, Unknown, 10/30/24) Home Meds Active Scripts Sucralfate (CARAFATE SUSP) 1 Gm/10 Ml Ss, 1 GM PO QID@0600,1130,1700,2200 for 14 Days, #28 ML Prov:ROBERT PRICE MD 11/05/24 Pantoprazole Sodium Sesquihydr (Pantoprazole Sodium) 40 Mg Tab, 40 MG PO DAILY, #30 TAB Prov:NADIA CONKLIN MD 06/05/24 Acetaminophen (Acetaminophen) 325 Mg Tab, 650 MG PO Q6HP PRN for 10 Days, #80 TAB Prov:EREN BOWIE 05/25/24 Zolpidem Tartrate (Ambien) 10 Mg Tab, 1 TAB PO QPM PRN, #30 TAB 5 Refills Prov:NADIA CONKLNI MD 03/24/24 Aspirin (Aspirin Adult Low Dose) 81 Mg Tab, 81 MG PO DAILY, #180 TAB Prov:NADIA CONKLIN MD 03/24/24 Reported Medications Simethicone (Gas-X Extra Strength) 125 Mg Chw, 125 MG PO BID, TAB.CHEW 10/31/24 Hydralazine Hcl (Hydralazine Hcl) 25 Mg Tab, 1 TAB PO BID for 90 Days, #180 07/29/24 Metformin Hydrochloride (Metformin Hcl) 500 Mg Tab, 1 TAB PO DAILY for 90 Days, #90 07/29/24 Gabapentin (Gabapentin) 600 Mg Tab, 1 TAB PO TID for 90 Days, #270 07/28/24 Polyethylene Glycol-Propylene (Systane) Doretha, 1 DROP EACHEYE QIDPRN, #30 ML 5 Refills 05/24/24 Metoprolol Tartrate (LOPRESSOR TABLET) 50 Mg Tb, 1 TAB PO BID, #60 TAB 5 Refills 03/22/24 Discontinued Reported Medications Paroxetine Hydrochloride (Paroxetine Hydrochloride) 20 Mg Tab, 1 TAB PO DAILY for 30 Days, #30 07/29/24 Discontinued Scripts Metronidazole (Flagyl) 500 Mg Tab, 500 MG PO TID for 10 Days, #30 TAB Prov:ROBERT PRICE MD 11/05/24 Levofloxacin Hemihydrate (LEVAQUIN 500 MG) 500 Mg Tab, 500 MG PO DAILY for 10 Days, #10 TAB Prov:ROBERT PRICE MD 11/05/24 Pantoprazole Sodium Sesquihydr (Protonix) 40 Mg Tab, 40 MG PO BID for 30 Days, #60 TAB Prov:ROBERT PRICE MD 11/05/24 Atorvastatin Calcium (Lipitor) 20 Mg Tab, 1 TAB PO DAILY, #30 TAB 1 Refill Prov:NADIA CONKLIN MD 06/05/24 Current Medications Current Medications Medications (Trade) Dose Ordered Sig/Shay Route PRN Reason Start Time Stop Time Status Last Admin Aspirin (Ecotrin Enteric Coated Tablet) 81 mg DAILY PO 12/16/24 10:00 12/16/24 09:51 Pantoprazole Sodium (Protonix Tablet) 40 mg DAILY PO 12/16/24 10:00 12/16/24 09:51 Ketorolac Tromethamine (Toradol Injection) 30 mg Q6HPRN PRN IV MODERATE PAIN (4-6 PAIN SCALE) 12/16/24 11:00 12/16/24 18:40 DC Ketorolac Tromethamine (Toradol Injection) 15 mg Q6HPRN PRN IV MODERATE PAIN (4-6 PAIN SCALE) 12/16/24 12:45 12/21/24 12:44 12/16/24 13:36 Dexamethasone Sodium Phosphate (Decadron Injection) 10 mg DAILY IV 12/17/24 10:00 Review of Systems As above, the other systems are negative Vital Signs Vital Signs Date Time Temp Pulse Resp B/P (MAP) Pulse Ox O2 Delivery O2 Flow Rate FiO2 12/16/24 22:21 63 114/55 12/16/24 21:00 97.5 18 97 97.5 12/16/24 10:53 Room Air* 0 21 Physical Exam GENERAL EXAM: General: the patient is well developed and nourished. No acute distress. HEENT: Normocephalic, neck is supple, no carotid bruits. No mass. Obvious tenderness to light palpation in bilateral face, frontal region, and scalp, intense tenderness to light palpation in bilateral neck. There was no erythema, swelling, or permanent vasculatures in bilateral scalp RESPIRATORY: Normal respiratory effort with symmetrical lung expansion. Lungs clear to auscultation. CARDIOVASCULAR: Regular rate and rhythm with no murmurs. S1, S2. ABDOMEN: Soft, nontender, normal bowel sound NEUROLOGICAL: MENTAL STATUS: Awake and alert. Oriented to person, place, time and general circumstances. Poor historian SPEECH, LANGUAGE, HIGHER CORTICAL FUNCTION: no aphasia or dysathria. CRANIAL NERVES: #2: Intact visual quispe to confrontation. The optic discs were sharp. Retinal background was uniformly pink in appearance. There was no hemorrhages or exuda randall. #3,4,6: Pupils are equal, round and reactive. EOMs full and conjugate. Mild bilateral gaze evoked nystagmus. #5: Facial sensation intact in all three divisions bilaterally. Mandibular strength intact. #7: Facial muscles symmetrical and strength intact. #8: Hearing grossly normal to voice. #9,10: Uvula and soft palate rise in the midline. Swallow and voice are normal. #11: Trapezius and sternomastoid strength intact bilaterally. #12: Tongue midline. No fasciculations or atrophy. SENSATION: Sensation to touch and pinprick is normal. MOTOR: Normal tone in the upper and lower extremity. Normal muscle bulk. No fasciculations. No abnormal movements or posturing. Muscle strength of the major groups in the right extremities is 5/5. Muscle strength of the major groups in the left extremities is 4/5, no obvious drifting in the upper extremities, but there was drifting in the right, not left, leg. REFLEXES: Deep tendon reflexes normal and symmetrical. No pathological reflexes. CEREBELLAR/COORDINATION: Finger to nose is normal bilaterally. GAIT/STATION: deferred. Labs/Diagnostic Data Labs Test 12/16/24 11:49 12/16/24 05:25 12/15/24 13:57 12/15/24 10:53 Range/Units POC Glucose 91 70-106 mg/dl White Blood Count 8.0 4.4-10.8 10^3/uL Red Blood Count 3.62 L 4.0-5.20 10^6/uL Hemoglobin 11.7 L 12.2-16.2 g/dL Hematocrit 33.2 L 36.0-46.0 % Mean Corpuscular Volume 91.9 80.0-100.0 fL Mean Corpuscular Hemoglobin 32.2 H 28.0-32.0 pg Mean Corpuscular Hemoglobin Concent 35.1 32.0-36.0 g/dL Red Cell Distribution Width 13.5 11.8-14.3 % Platelet Count 207 140-450 10^3/uL Mean Platelet Volume 10.0 6.9-10.8 fL Neutrophils (%) (Auto) 67.5 37.0-80.0 % Lymphocytes (%) (Auto) 21.5 10.0-50.0 % Monocytes (%) (Auto) 10.1 0.0-12.0 % Eosinophils (%) (Auto) 0.5 0.0-7.0 % Basophils (%) (Auto) 0.4 0.0-2.0 % Neutrophils # (Auto) 5.4 1.6-8.6 10 ^3/uL Lymphocytes # (Auto) 1.7 0.4-5.4 10 ^3/uL Monocytes # (Auto) 0.8 0-1.3 10 ^3/uL Eosinophils # (Auto) 0 0-0.8 10 ^3/uL Basophils # (Auto) 0 0-0.2 10 ^3/uL Nucleated Red Blood Cells 0.0 % Sodium Level 130 L 136-145 mmol/L Potassium Level 3.5 3.5-5.1 mmol/L Chloride Level 100 98-107 mmol/L Carbon Dioxide Level 21 20-31 mmol/L Anion Gap 9 5-15 Blood Urea Nitrogen 6 L 9-23 mg/dL Creatinine 0.48 L 0.550-1.02 mg/dL Glomerular Filtration Rate Calc 98 >90 mL/min BUN/Creatinine Ratio 12.5 10.0-20.0 Serum Glucose 98 74-106 mg/dL Calcium Level 9.2 8.7-10.4 mg/dL Total Bilirubin 1.0 0.2-1.0 mg/dL Aspartate Amino Transferase (AST) 14 13-40 U/L Alanine Aminotransferase (ALT) 12 7-40 U/L Alkaline Phosphatase 68 46-116 U/L Total Protein 6.1 5.7-8.2 g/dL Albumin 4.0 3.2-4.8 g/dL Troponin I High Sensitivity 6 </=34 ng/L Urine Color Light-yellow Yellow Urine Clarity Turbid H Clear Urine pH 7.5 5.0-9.0 Urine Specific [place] 1.013 1.001-1.035 Urine Protein Negative Negative Urine Ketones 1+ H Negative Urine Blood Negative Negative /uL Urine Nitrite Negative Negative Urine Bilirubin Negative Negative Urine Urobilinogen Normal Negative mg/dL Urine Leukocyte Esterase Negative Negative /uL Urine RBC <1 0 - 4 /hpf Urine Microscopic WBC 1 0-5 /HPF Urine Squamous Epithelial Cells Few <5 /hpf Urine Bacteria None seen None Seen /hpf Urine Sodium 60 40-220 mmol/L Urine Glucose Normal Normal mg/dL Assessment Consistent headache since 03/2024 Medication overuse headache Rule out temporal arteritis, less likely Acute stroke syndrome in 03/2024 with unremarkable MRI brain scan Left hemiparesis on physical examination with atypical feature Plan/Recommendation Monitoring Supportive treatment Telemetry ESR CRP MRI brain scan A trial of nortriptyline 25 mg HS for the headache She has been advised not to take pain medications on regular basis for headache More recommendation per clinical course Prognosis: Poor This medical document was created using an electronic medical record system with [employer] dictation system. Although this document has been carefully reviewed, there may still be some phonetic and typographical errors. These areas are purely typographical due to imperfections of the software programs, and do not reflect any compromise in the patient's medical care. Plan discussed with: Patient, Other TOMI SCHAFFER MD Dec 16, 2024 22:49
[2024-12-16] MEDS: NORTRIPTYLINE HCL 25 MG CAP PO ONE (23:45)
[2024-12-16] MEDS ORDERED: LORazepam 2MG/ML-1ML VIAL IV PRN (23:45)
[2024-12-17 00:40] LABS: Erythrocyte Sedimentation Rate 11 mm/hr (0-20)
[2024-12-17 01:00] VITALS: BP 112/75; PULSE 66; RESP 16; TEMP 97.6; O2SAT 96
[2024-12-17 05:00] VITALS: BP 109/73; PULSE 61; RESP 17; TEMP 98; O2SAT 94
[2024-12-17] MEDS: DOCUSATE SOD 100 MG CAP PO PRN (05:40)
[2024-12-17 08:00] VITALS: PULSE 53
[2024-12-17 09:00] VITALS: BP 107/48; PULSE 61; RESP 15; TEMP 98; O2SAT 97
[2024-12-17] MEDS: DexAMETHasone SOD PHOS 10MG/1ML VIAL INJ IV SCH (10:17)
--- NOTE | 2024-12-17 11:08 | DVHDS2 ---
Discharge Summary Date of Admission Dec 15, 2024 at 14:24 Labs/Diagnostic Data: Laboratory Results Test 12/16/24 11:49 12/16/24 05:25 12/15/24 13:57 12/15/24 10:53 POC Glucose 91 mg/dl (70-106) White Blood Count 8.0 10^3/uL (4.4-10.8) Red Blood Count 3.62 10^6/uL (4.0-5.20) Hemoglobin 11.7 g/dL (12.2-16.2) Hematocrit 33.2 % (36.0-46.0) Mean Corpuscular Volume 91.9 fL (80.0-100.0) Mean Corpuscular Hemoglobin 32.2 pg (28.0-32.0) Mean Corpuscular Hemoglobin Concent 35.1 g/dL (32.0-36.0) Red Cell Distribution Width 13.5 % (11.8-14.3) Platelet Count 207 10^3/uL (140-450) Mean Platelet Volume 10.0 fL (6.9-10.8) Neutrophils (%) (Auto) 67.5 % (37.0-80.0) Lymphocytes (%) (Auto) 21.5 % (10.0-50.0) Monocytes (%) (Auto) 10.1 % (0.0-12.0) Eosinophils (%) (Auto) 0.5 % (0.0-7.0) Basophils (%) (Auto) 0.4 % (0.0-2.0) Neutrophils # (Auto) 5.4 10 ^3/uL (1.6-8.6) Lymphocytes # (Auto) 1.7 10 ^3/uL (0.4-5.4) Monocytes # (Auto) 0.8 10 ^3/uL (0-1.3) Eosinophils # (Auto) 0 10 ^3/uL (0-0.8) Basophils # (Auto) 0 10 ^3/uL (0-0.2) Nucleated Red Blood Cells 0.0 % Erythrocyte Sedimentation Rate 11 mm/hr (0-20) Sodium Level 130 mmol/L (136-145) Potassium Level 3.5 mmol/L (3.5-5.1) Chloride Level 100 mmol/L (98-107) Carbon Dioxide Level 21 mmol/L (20-31) Anion Gap 9 (5-15) Blood Urea Nitrogen 6 mg/dL (9-23) Creatinine 0.48 mg/dL (0.550-1.02) Glomerular Filtration Rate Calc 98 mL/min (>90) BUN/Creatinine Ratio 12.5 (10.0-20.0) Serum Glucose 98 mg/dL (74-106) Calcium Level 9.2 mg/dL (8.7-10.4) Total Bilirubin 1.0 mg/dL (0.2-1.0) Aspartate Amino Transferase (AST) 14 U/L (13-40) Alanine Aminotransferase (ALT) 12 U/L (7-40) Alkaline Phosphatase 68 U/L (46-116) C-Reactive Protein High Sensitivity 0.58 mg/dL (<1.0) Total Protein 6.1 g/dL (5.7-8.2) Albumin 4.0 g/dL (3.2-4.8) Troponin I High Sensitivity 6 ng/L (</=34) Urine Color Light-yellow (Yellow) Urine Clarity Turbid (Clear) Urine pH 7.5 (5.0-9.0) Urine Specific [place] 1.013 (1.001-1.035) Urine Protein Negative (Negative) Urine Ketones 1+ (Negative) Urine Blood Negative /uL (Negative) Urine Nitrite Negative (Negative) Urine Bilirubin Negative (Negative) Urine Urobilinogen Normal mg/dL (Negative) Urine Leukocyte Esterase Negative /uL (Negative) Urine RBC <1 /hpf (0 - 4) Urine Microscopic WBC 1 /HPF (0-5) Urine Squamous Epithelial Cells Few /hpf (<5) Urine Bacteria None seen /hpf (None Seen) Urine Sodium 60 mmol/L (40-220) Urine Glucose Normal mg/dL (Normal) Other Laboratory Tests 12/16/24 05:25 Discharge Statement: "Patient was advised to return to the ER or call 911 if any headaches, dizziness, shortness of breath, chest pain, abdominal pain, bleeding, fevers, or worsening of medical condition. Patient was counseled about treatment plan, medications, possible side effects, patientverbalized understanding. All questions were answered to the best of my ability. This discharge took greater then 30 minutes in planning, reviewing documentation, counseling the patient, and discussing with other team members." ASSESSMENT ASSESSMENT Assessment ROBERT ANGULO MD Dec 17, 2024 11:08
[2024-12-17] MEDS ORDERED: PRED10TA PO (11:11)
[2024-12-17] MEDS ORDERED: NORT25CA PO (11:11)
[2024-12-17 12:18] VITALS: BP 139/62; PULSE 55; RESP 16; TEMP 98.4; O2SAT 98
--- NOTE | 2024-12-17 12:35 | DVH ---
EXAM: MRI BRAIN HEAD WO CONTRAST; DATE: 12/17/2024 08:20 AM HISTORY: CVA COMPARISON: CT scan dated 12/15/2024. MRI BRAIN HEAD WO CONTRAST on DOS: 06/02/24, MRI BRAIN HEAD WO C ONTRAST on DOS: 05/24/24, MRI BRAIN HEAD WO CONTRAST on DOS: 03/22/24 TECHNIQUE: MRI was performed utilizing multiple appropriate imaging planes and pulse sequences. FINDINGS: SUPRATENTORIAL REGION: No evidence for acute ischemia or intracranial hemorrhage. POSTERIOR FOSSA: Unremarkable. BRAINSTEM: Unremarkable. SELLAR/SUPRASELLAR REGION: Unremarkable. VENTRICLES, CISTERNS, SULCI: Age-appropriate. ORBITS: Unremarkable. PARANASAL SINUSES: Unremarkable. MASTOID AIR CELLS: Unremarkable. VASCULATURE: Unremarkable. BONES/ SOFT TISSUES: Unremarkable. OTHER: None. IMPRESSION: 1. No acute intracranial process identified.
[2024-12-17] MEDS: ACETAMINOPHEN 325 MG TAB PO PRN (12:50)
[2024-12-17 13:00] VITALS: BP 139/62; PULSE 55; RESP 16; TEMP 98.4; O2SAT 98
[2024-12-17] MEDS ORDERED: NORTRIPTYLINE HCL 25 MG CAP PO SCH (22:00)
== END 2024-12-17 16:30 | disposition home or self-care (01) | DRG 103 ==
LOC: EDBD 08:56 → ER 08:56 → EDUNIT# 08:56 → OVERFLOW 14:24 → TELE-WESTW 22:00
PROVIDERS: ADMIT Internal Medicine; ATTEND Internal Medicine
DX: G44.41 Drug-induced headache, not elsewhere classified, intractable (principal); E87.1 Hypo-osmolality and hyponatremia; I69.354 Hemiplegia and hemiparesis following cerebral infarction affecting left non-dominant side; G43.111 Migraine with aura, intractable, with status migrainosus; Z96.652 Presence of left artificial knee joint; E66.9 Obesity, unspecified; R73.03 Prediabetes; E78.5 Hyperlipidemia, unspecified; I10 Essential (primary) hypertension; T50.905A Adverse effect of unspecified drugs, medicaments and biological substances, initial encounter; Z91.041 Radiographic dye allergy status; Z88.8 Allergy status to other drugs, medicaments and biological substances; Z79.899 Other long term (current) drug therapy; Z79.82 Long term (current) use of aspirin; Z79.2 Long term (current) use of antibiotics; Z79.84 Long term (current) use of oral hypoglycemic drugs; Z98.891 History of uterine scar from previous surgery; Z68.24 Body mass index [BMI] 24.0-24.9, adult; Z83.3 Family history of diabetes mellitus; Z82.49 Family history of ischemic heart disease and other diseases of the circulatory system; Y92.89 Other specified places as the place of occurrence of the external cause
CPT/HCPCS: 36415; 70450; 70551; 71045; 80048; 80053; 81001; 82962; 84300; 84484; 85025; 85652; 86141; 96361; 96374; 96375; 99291; G0378; J1100; J1885

== ENCOUNTER 2025-05-22 10:19 | Day surgery (SDC) | payer OTHER, MEDICAID ==
[2025-05-15 12:33] LABS: Hematocrit 38.3 % (36.0-46.0); Hemoglobin 12.8 g/dL (12.2-16.2); Mean Corpuscular Hemoglobin 29.8 pg (28.0-32.0); Mean Corpuscular Volume 88.9 fL (80.0-100.0); Nucleated Red Blood Cells % 0.0 %
[2025-05-15 12:34] LABS: Urine Protein, UAD TRACE (Negative)
[2025-05-15 12:53] LABS: Alanine Aminotransferase 17 U/L (7-40); Albumin 3.9 g/dL (3.2-4.8); BUN/Creatinine Ratio 14.3 (10.0-20.0); Bilirubin, Total 0.4 mg/dL (0.2-1.0); Blood Urea Nitrogen 10 mg/dL (9-23); Calcium 8.9 mg/dL (8.7-10.4); Chloride 104 mmol/L (98-107); Glucose 99 mg/dL (74-106); INR 0.96 (0.9-1.15); Partial Thromboplastin Time 27.3 SEC (24.5-34.5); Potassium 5.1 mmol/L (3.5-5.1); Prothrombin Time 10.2 sec (9.3-11.8); Sodium 140 mmol/L (136-145); Total Protein 6.6 g/dL (5.7-8.2)
[2025-05-15 12:56] LABS: Alkaline Phosphatase 118 U/L (46-116)
[2025-05-15 13:03] LABS: Anion Gap 8 (5-15); Carbon Dioxide 28 mmol/L (20-31)
[~2025-05-22] VITALS: Ht 152.4 cm; Wt 70.3 kg
[~2025-05-22 10:19] MED LIST changes: -ATOR20TA PO; -LEVO500T91 PO; -METR-344 PO; +NORT25CA PO; -PANT40TA2 PO; -PARO1TAB33 PO
[2025-05-22] MEDS ORDERED: NALOXONE HCL 0.4 MG/ML VIAL ONE (11:56)
[2025-05-22] MEDS ORDERED: SODIUM CHLORIDE LOCK 10 ML ONE (11:56)
[2025-05-22] MEDS ORDERED: FLUMAZENIL 0.1 MG/ML INJ 10ML MDV IV ONE (11:56)
[2025-05-22 12:09] VITALS: O2SAT 99
[2025-05-22] MEDS: LIDOCAINE VISCOUS 2% 15ML UD ONE (12:15)
[2025-05-22] MEDS: diphenhdrAMINE HCL 50 MG/1 ML VL ONE (12:16)
[2025-05-22] MEDS: fentaNYL CITRATE 100 MCG/2 ML VL ONE (12:16)
[2025-05-22] MEDS: MIDAZOLAM HCL 5 MG/ML-1ML VIAL ONE (12:16)
[2025-05-22 12:30] VITALS: PULSE 49; RESP 14; TEMP 97.8; O2SAT 97
[2025-05-22 13:15] VITALS: BP 147/66; PULSE 49; RESP 16; O2SAT 96
--- NOTE | 2025-05-22 13:15 | DVHOP2 ---
Operative Report DATE OF OPERATION: 05/22/25 PROCEDURE: Upper Endoscopy with biopsy. PREOPERATIVE INDICATION: The patient is a 74 -year-old female undergoing endoscopy for GERD and dyspepsia POSTOPERATIVE DIAGNOSES: 1. Mild gastritis PROCEDURE PERFORMED BY: Tiffany Galeas GI NURSE: Rose Mary SCOPE: Olympus videoendoscope. ASA CLASS: 2. PREOPERATIVE MEDICATIONS: Versed 2 mg, Fentanyl 50 mcg, Benadryl 50 mg I administered moderate sedation throughout this 12 minutes procedure. An independent trained observer pushed medications at my direction, and monitored the patient's level of consciousness and physiological status throughout. PROCEDURE IN DETAIL: After obtaining an informed consent, the patient was placed on left lateral decubitus position. The patient was then sedated with the above medications. A bite block was placed between her teeth. The endoscope was then passed through the oropharynx, into the esophagus, and through the stomach and pylorus up to the second and third part of the duodenum. The endoscope was then withdrawn. The 2nd and 3rd part of the duodenal and the duodenal bulb were normal. Duodenal biopsies were obtained The pre-pyloric area antrum and body showed mild gastritis with some hyperemia erythema. Gastric biopsies were obtained On retroflexion the fundus cardia and angularis were normal. The endoscope was then withdrawn into distal esophagus. Patient had no significant hiatal hernia or esophagitis. There was slightly irregular squamocolumnar junction and GE junction biopsies were obtained The remaining distal and proximal esophagus and oropharynx were unremarkable The patient tolerated the procedure well without difficulty. COMPLICATIONS : None SPECIMENS: Duodenal biopsies Gastric biopsies GE junction biopsies DISPOSITION: Stable D/C to home PLAN: 1. Await for biopsy result 2. Will place pt on Protonix 40 mg p.o. daily 3. Resume GI soft diet advance as tolerated 4. Outpatient follow up with me in 4-6 weeks to review results and discuss further management TIFFANY GALEAS MD May 22, 2025 13:15
== END 2025-05-22 13:40 | disposition home or self-care (01) ==
LOC: GI 10:19
PROVIDERS: ATTEND Internal Medicine Gastroenterology
DX: K29.50 Unspecified chronic gastritis without bleeding (principal); K21.00 Gastro-esophageal reflux disease with esophagitis, without bleeding; I10 Essential (primary) hypertension; Z79.899 Other long term (current) drug therapy; Z90.710 Acquired absence of both cervix and uterus; Z98.891 History of uterine scar from previous surgery
CPT/HCPCS: 36415; 43239; 80053; 81001; 85025; 85610; 85730; 88305; 88342; J1200; J2250; J3010; J7030